=== PATIENT | female | born 1955 | race Two or more races ===

== ENCOUNTER 2020-03-08 11:32 | Outpatient (REF) | payer OTHER, SELFPAY ==
--- NOTE | 2020-03-08 | MM_ITS ---
EXAMINATION: MM SCREENING DIGITAL BREAST TOMOSYNTHESIS, BILATERAL CLINICAL INFORMATION: Screening. Asymptomatic. The lifetime risk of breast cancer based on the Tyrer-Cuzick Model is 9%. COMPARISON: Mammography: 08/01/2018, 07/30/2017 TECHNIQUE: Digital breast tomosynthesis is performed in both the craniocaudal and mediolateral oblique views along with computer-aided detection (CAD). Synthesized 2D images are generated from the tomosynthesis. FINDINGS: There are scattered areas of fibroglandular density (ACR BI-RADS breast composition Category b). There are no significant masses, abnormal calcifications, or other abnormalities. There are stable small circumscribed nodules likely intramammary nodes outer left breast, and central and outer right breast. MM/MM tomosynthesis screening BI IMPRESSION: No mammographic evidence of malignancy. ASSESSMENT: BI-RADS 2: Benign RECOMMENDATION: Routine annual mammography screening. This patient's information was entered into a reminder system with a target due date for their next mammogram.
== END 2020-03-08 11:33 | disposition home or self-care (01) ==
LOC: HO.MAMMO 11:32
PROVIDERS: Visit Provider Internal Medicine
DX: Z12.31 Encounter for screening mammogram for malignant neoplasm of breast (principal)
CPT/HCPCS: 77063; 77067

== ENCOUNTER 2020-03-16 10:31 | Outpatient (REF) | payer OTHER, SELFPAY ==
[2020-03-16 11:55] LABS: MANUAL DIFF FLAG NO
[2020-03-16 12:01] LABS: Basophils Percent Auto 0.3 % (0-2); Eosinophils Absolute Auto 0.1 X10*3/uL (0.0-0.4); Eosinophils Percent Auto 1.3 % (0-4); Hematocrit 42.6 % (37-47); Hemoglobin 13.5 g/dl (12.0-16.0); Imm Gran Abs Auto 0.01 X10*3/uL (0.00-0.03); Imm Gran Pct Auto 0.2 % (0.0-0.4); Lymphocytes Absolute Auto 1.8 X10*3/uL (1.2-4.9); Lymphocytes Percent Auto 30.5 % (20-40); Mean Corpuscular HGB Conc 31.7 g/dl (31.0-35.0); Mean Corpuscular Hemoglobin 27.8 pg (27.0-33.0); Mean Corpuscular Volume 87.8 fL (80-98); Mean Platelet Volume 8.6 fL (9.4-12.3); Monocytes Absolute Auto 0.4 X10*3/uL (0.1-1.2); Monocytes Percent Auto 6.7 % (2-11); Neutrophils Absolute Auto 3.6 X10*3/uL (2.0-8.3); Platelet Count 190 X10*3/uL (160-400); Red Blood Count 4.85 X10*6/uL (4.20-5.50); Red Cell Distribution Width 12.6 % (11.0-16.0); White Blood Count 5.9 X10*3/uL (4.8-10.8)
[2020-03-16 12:37] LABS: Alanine Aminotransferase 41 U/L (0-31); Albumin Level 4.6 g/dL (3.5-5.0); Alkaline Phosphatase 68 U/L (39-117); Anion Gap 12 (12-20); Aspartate Amino Transferase 34 U/L (5-31); Bilirubin Total 0.6 mg/dL (0.0-1.0); Blood Urea Nitrogen 13 mg/dL (9-16); Calcium 9.5 mg/dL (8.4-10.2); Carbon Dioxide 31 mmol/L (22-29); Chloride 104 mmol/L (96-108); Cholesterol 232 mg/dL; Estimated Glomerular Filt Rate > 60; Glucose Fasting 106 mg/dL (60-99); HDL Cholesterol 55 mg/dL; LDL Cholesterol Calculated 143 mg/dl; Potassium 4.5 mmol/l (3.3-5.1); Sodium 142 mmol/L (135-145); Total Protein 7.6 g/dL (6.5-8.0); Triglycerides 170 mg/dL
[2020-03-16 12:45] LABS: TSH reflex Free T4 1.71 mIU/mL (0.32-4.0); Vitamin D 25-OH Total 50.9 ng/mL (>30)
[2020-03-16 13:03] LABS: Folate > 20.0 ng/mL (> or = 4.0); Vitamin B12 728 pg/mL (200-900)
== END 2020-03-16 10:32 | disposition home or self-care (01) ==
LOC: HO.LAB 10:31
PROVIDERS: Visit Provider Internal Medicine
DX: R73.01 Impaired fasting glucose (principal); E66.9 Obesity, unspecified; I10 Essential (primary) hypertension; F41.9 Anxiety disorder, unspecified; Z12.31 Encounter for screening mammogram for malignant neoplasm of breast
CPT/HCPCS: 36415; 80053; 80061; 82306; 82607; 82746; 84443; 85025

== ENCOUNTER 2021-03-11 13:45 | Outpatient (REF) | payer OTHER, SELFPAY ==
--- NOTE | ~2021-03-11 | MM_ITS ---
EXAMINATION: MM SCREENING DIGITAL BREAST TOMOSYNTHESIS, BILATERAL CLINICAL INFORMATION: Screening. Asymptomatic. The lifetime risk of breast cancer based on the Tyrer-Cuzick Model is 10%. COMPARISON: Mammography: 03/08/2020, 08/01/2018, 07/30/2017 TECHNIQUE: Digital breast tomosynthesis is performed in both the craniocaudal and mediolateral oblique views along with computer-aided detection (CAD). Synthesized 2D images are generated from the tomosynthesis. Additional left MLO view is provided. FINDINGS: There are scattered areas of fibroglandular density (ACR BI-RADS breast composition Category b). There are no significant masses, abnormal calcifications, or other abnormalities. Parenchymal pattern is similar to prior studies. There is some stable circumscribed nodularity again seen posterior 3:00 left breast and posterior 6:00 and mid upper outer right breast, respectively. No developing density. No significant changes. MM/MM tomosynthesis screening BI IMPRESSION: No mammographic evidence of malignancy. ASSESSMENT: BI-RADS 2: Benign RECOMMENDATION: Routine annual mammography screening. This patient's information was entered into a reminder system with a target due date for their next mammogram.
== END 2021-03-11 13:46 | disposition home or self-care (01) ==
LOC: HO.MAMMO 13:45
PROVIDERS: PCP Internal Medicine; Visit Provider Internal Medicine
DX: Z12.31 Encounter for screening mammogram for malignant neoplasm of breast (principal)
CPT/HCPCS: 77063; 77067

== ENCOUNTER 2021-04-17 12:58 | Emergency (ER) | payer OTHER, SELFPAY ==
[2021-04-17 15:10] LABS: COVID-19 Test Positive (Negative)
== END 2021-04-17 23:13 | disposition left against medical advice (07) ==
PROVIDERS: Physician Assistant; Emergency Provider Emergency Medicine; PCP Internal Medicine
DX: U07.1 COVID-19 (principal); R51.9 Headache, unspecified
CPT/HCPCS: 36415; 87635; 99283

== ENCOUNTER 2021-04-27 09:34 | Inpatient (IN) | payer OTHER, SELFPAY ==
[2021-04-27] VITALS (12 sets, daily range): BP systolic 134–188; BP diastolic 0–88; PULSE 62–77; RESP 12–20; TEMP 35.6–37.1; O2SAT 97–100; BMI 31.8
--- NOTE | ~2021-04-27 | XR_ITS ---
EXAMINATION: XR ANKLE, LEFT CLINICAL INFORMATION: Postreduction left ankle. COMPARISON: None TECHNIQUE: AP, lateral, and mortise views of the left ankle. FINDINGS: Postreduction the left ankle is in a cast. There is a medial malleolar, posterior malleolar and posterior fibular fractures which are in alignment. There is moderate soft tissue swelling. The left ankle is in a hard cast posteriorly. XR/XR ankle LT min 3V IMPRESSION: Status post reduction the left ankle mortise is in alignment. Visualized are posterior and medial malleolar fractures and posterior fibular fractures in alignment.
--- NOTE | ~2021-04-27 | FL_ITS ---
EXAMINATION: XR FLUOROSCOPY WITH IMAGES CLINICAL INFORMATION: Left ankle ORIF. COMPARISON: Left ankle radiographs dated 04/27/2021. TECHNIQUE: Fluoroscopy performed by Dr. Burgos. Fluoroscopy time: 5 minutes DAP: 0.0203 mGycm2 Images: 5 FL/FL guidance in OR FINDINGS/IMPRESSION: The patient is status post distal fibular and medial malleolus ORIF showing good anatomic alignment with mild soft tissue swelling is seen. Please refer to the operative report for more detailed findings.
--- NOTE | ~2021-04-27 | XR_ITS ---
EXAMINATION: BILATERAL KNEE AND LEFT ANKLE. CLINICAL INFORMATION: Fall. Pain. COMPARISON: None TECHNIQUE: 3 views each knee and 3 views left ankle. FINDINGS: RIGHT KNEE: There is no visible acute fracture, dislocation or subluxation. The joint space is maintained normal. There is small anterior superior patellar enthesophyte. No abnormal joint effusion seen. LEFT KNEE: There is loss of tricompartment joint space with periarticular spurring. No abnormal joint effusion or bony erosive changes. No loose body seen. There is no acute fracture or dislocation. LEFT ANKLE: There is a posterior malleolar fracture distal tibia and posterior fibular fracture with anterior dislocation of the ankle joint mortise. There is moderate soft tissue swelling. Small calcaneal heel and a moderate size retrocalcaneal enthesophytes are seen. XR/XR knee LT 4V IMPRESSION: Fracture dislocation ankle joint. There is moderate soft tissue swelling. Unremarkable bilateral knee exam except for anterior superior patella and enthesophyte right patella and calcaneal heel and retrocalcaneal enthesophytes.
--- NOTE | ~2021-04-27 | XR_ITS ---
EXAMINATION: BILATERAL KNEE AND LEFT ANKLE. CLINICAL INFORMATION: Fall. Pain. COMPARISON: None TECHNIQUE: 3 views each knee and 3 views left ankle. FINDINGS: RIGHT KNEE: There is no visible acute fracture, dislocation or subluxation. The joint space is maintained normal. There is small anterior superior patellar enthesophyte. No abnormal joint effusion seen. LEFT KNEE: There is loss of tricompartment joint space with periarticular spurring. No abnormal joint effusion or bony erosive changes. No loose body seen. There is no acute fracture or dislocation. LEFT ANKLE: There is a posterior malleolar fracture distal tibia and posterior fibular fracture with anterior dislocation of the ankle joint mortise. There is moderate soft tissue swelling. Small calcaneal heel and a moderate size retrocalcaneal enthesophytes are seen. XR/XR ankle LT min 3V IMPRESSION: Fracture dislocation ankle joint. There is moderate soft tissue swelling. Unremarkable bilateral knee exam except for anterior superior patella and enthesophyte right patella and calcaneal heel and retrocalcaneal enthesophytes.
--- NOTE | ~2021-04-27 | XR_ITS ---
EXAMINATION: BILATERAL KNEE AND LEFT ANKLE. CLINICAL INFORMATION: Fall. Pain. COMPARISON: None TECHNIQUE: 3 views each knee and 3 views left ankle. FINDINGS: RIGHT KNEE: There is no visible acute fracture, dislocation or subluxation. The joint space is maintained normal. There is small anterior superior patellar enthesophyte. No abnormal joint effusion seen. LEFT KNEE: There is loss of tricompartment joint space with periarticular spurring. No abnormal joint effusion or bony erosive changes. No loose body seen. There is no acute fracture or dislocation. LEFT ANKLE: There is a posterior malleolar fracture distal tibia and posterior fibular fracture with anterior dislocation of the ankle joint mortise. There is moderate soft tissue swelling. Small calcaneal heel and a moderate size retrocalcaneal enthesophytes are seen. XR/XR knee RT 4V IMPRESSION: Fracture dislocation ankle joint. There is moderate soft tissue swelling. Unremarkable bilateral knee exam except for anterior superior patella and enthesophyte right patella and calcaneal heel and retrocalcaneal enthesophytes.
[2021-04-27] MEDS: fentaNYL citrate/PF 100 MCG/2 ML VIAL 50 MCG IVPUSH (12:17)
[2021-04-27] MEDS: ondansetron HCL 4 MG/2 ML VIAL IVPUSH ×3 (12:17→20:45)
[2021-04-27] MEDS: propofoL 200 MG/20 ML VIAL 100 MG IVPUSH (12:20)
--- NOTE | 2021-04-27 12:29 | ED.FALL ---
HPI - Fall General Chief Complaint: Fall Stated Complaint: FALL ON ICE,KNEE PAIN,+CCOLLAR Time Seen by Provider: 04/27/21 11:02 Source: patient Limitations: no limitations History of Present Illness HPI Narrative: This is a 65 years old the patient will fell on the ice complaining of left ankle pain denies any other pain denies any head injury neck pain abdominal pain no chest wall pain complaint: fall Onset (ago): hour(s) (1) Fall from: standing Fall witnessed: no Place fall occurred: other (outside house) Loss of consciousness: none Prolonged down time: no Symptoms prior to fall: none Context: tripped/slipped Related Data Home Medications Medication Instructions Recorded Confirmed acetaminophen 325 mg tablet 650 mg PO Q4H PRN 04/27/21 04/27/21 cholecalciferol (vitamin D3) 25 25 mcg PO DAILY 04/27/21 04/27/21 mcg (1,000 unit) tablet (Vitamin D3) Previous Rx's Medication Instructions Recorded cyclobenzaprine 10 mg tablet 10 mg PO TID PRN #20 tab 11/30/20 metoprolol succinate 100 mg 100 mg PO DAILY #90 tab 02/14/21 tablet,extended release 24 hr meclizine 25 mg tablet 25 mg PO TID PRN #30 tab 03/11/21 rosuvastatin 20 mg tablet (Crestor) 20 mg PO DAILY #90 tab 03/11/21 sertraline 100 mg tablet 100 mg PO DAILY #90 tab 04/07/21 Allergies Allergy/AdvReac Type Severity Reaction Status Date / Time atorvastatin [Lipitor] Allergy Unknown Unknown Verified 04/27/21 11:09 lisinopril Allergy Unknown Unknown Verified 04/27/21 11:09 simvastatin Allergy Unknown Unknown Verified 04/27/21 11:09 Review of Systems Review of Systems: Yes all other systems are reviewed and are negative Cardiovascular: Cardiovascular: Reports no additional cardiovascular complaints Respiratory: Respiratory: Reports no additional respiratory complaints Gastrointestinal: Gastrointestinal: Reports no additional gastrointestinal complaints Neurologic: Reports system reviewed and no additional complaints, except as documented PMFSH Past Medical History Medical History Anxiety and depression Carpal tunnel syndrome Hypercholesterolemia Hypertension Impaired glucose tolerance Obesity Osteopenia Postmenopausal bleeding Surgical History History of tonsillectomy History of tubal ligation Family History Family History Father No problems noted. Mother Skin cancer Breast cancer Paternal Uncle Myocardial infarction Brother No problems noted. Brother No problems noted. Sister No problems noted. Son No problems noted. Son No problems noted. Daughter No problems noted. Social History Social History (Updated 08/23/20 @ 16:30 by Tricia Perez CMA) Housing: Apartment Alcohol intake: never Advance Directives: No Advance Directives Information Provided: No service: No Current occupational status: unemployed Current occupational exposures/hazards: No Physical Exam Vital Signs: Vital Signs: Last Vital Signs Temp 98.5 F 04/27/21 12:18 Pulse 62 04/27/21 13:12 Resp 14 04/27/21 13:12 BP 188/62 H 04/27/21 13:12 Pulse Ox 100 04/27/21 13:12 Oxygen Flow Rate 2 04/27/21 12:23 BMI result Body Mass Index 31.8 Const: General: cooperative Nutritional Appearance: average body habitus Orientation/consciousness: patient oriented x3 HENMT: Head: Yes normal to inspection Face and sinus: Yes normal facial exam Mouth: Normal oral and palatal mucosa present Teeth and gingiva: dentition normal Throat: Yes posterior oropharynx normal Neck: Neck: Yes normal visual inspection and Yes full ROM Chest: Chest palpation & inspection: normal inspection of the chest Resp: Effort & Inspection: normal respiratory effort Auscultation: clear to auscultation bilaterally Cardio: Jugular venous distension: no JVD Rate: regular rate Rhythm: regular rhythm GI: Inspection: Yes normal to inspection Palpation (GI): Soft to palpation Neuro: General: patient oriented x3 Extrem: Other: Patient has a deformity and swelling in the left lower extremity in the ankle, she has good pulses Course Course Course Narrative: Discuss with Ortho Dr. Burgos will proceed with reduction Reevaluation(s) Reevaluation #1: ankle reduced and splinted Seen by PT failed PT ,will admit will need ORIF anyway Procedures Orthopedic Fracture Reduction fx dilocation left ankle: Time Out Performed: Yes Side: left Fracture Reduction Location: other (ankle) Analgesia: procedural sedation Technique: direct manipulation and traction/counter-traction Post-reduction neuro exam: intact Post-reduction vascular exam: intact Splint Applied: Yes Patient Tolerated Procedure: well Procedural Sedation Indication: fracture/dislocation reduction ASA Class: I Mallampati Class: I Preparation: satellite project site monitor applied Fentanyl: IV Fentanyl dose (mcg): 50 IV Propofol dose (mg): 50 Patient Tolerated Procedure: well Complications: none MDM - Fall Imaging Data Ankle left: Radiologist's impression: s small anterior superior patellar enthesophyte. No abnormal joint effusion seen. LEFT KNEE: There is loss of tricompartment joint space with periarticular spurring. No abnormal joint effusion or bony erosive changes. No loose body seen. There is no acute fracture or dislocation. LEFT ANKLE: There is a posterior malleolar fracture distal tibia and posterior fibular fracture with anterior dislocation of the ankle joint mortise. There is moderate soft tissue swelling. Small calcaneal heel and a moderate size retrocalcaneal enthesophytes are seen.? XR/XR ankle LT min 3V IMPRESSION: Fracture dislocation ankle joint. There is moderate soft tissue swelling. ? Unremarkable bilateral knee exam except for anterior superior patella and enthesophyte right patella and calcaneal heel and retrocalcaneal enthesophytes. Dictated By: Tito Diaz MD Signed By: <El Left Ankle postreduction: Radiologist's impression: ? ? EXAMINATION: XR ANKLE, LEFT CLINICAL INFORMATION: Postreduction left ankle.? COMPARISON: None? TECHNIQUE: AP, lateral, and mortise views of the left ankle. FINDINGS: Postreduction the left ankle is in a cast. There is a medial malleolar, posterior malleolar and posterior fibular fractures which are in alignment. There is moderate soft tissue swelling. The left ankle is in a hard cast posteriorly. XR/XR ankle LT min 3V IMPRESSION: Status post reduction the left ankle mortise is in alignment. Visualized are posterior and medial malleolar fractures and posterior fibular fractures in alignment. Dictated By: Tito Diaz MD Signed By: <Electronically signed by Tito Diaz MD in OV> 04/27/21 1326 DD/ 1251 TD/TT:? Speech And Language Tutor: [facility] [place] Discharge Plan Discharge Clinical Impression: Fracture dislocation of ankle Patient Disposition: Admitted As Inpatient
[2021-04-27] MEDS: oxyCODONE HCl Immed Release 5 MG TABLET 10 MG PO (13:33)
--- NOTE | 2021-04-27 13:52 | ECG_ITS ---
Test Reason : GEN MED Blood Pressure : / mmHG Vent. Rate : 064 BPM Atrial Rate : 064 BPM P-R Int : 136 ms QRS Dur : 076 ms QT Int : 444 ms P-R-T Axes : 060 023 020 degrees QTc Int : 458 ms Normal sinus rhythm Normal ECG When compared to the previous EKG of No significant changes seen Referred By: Waqar Huff Electronically Signed By:CHICHO JACKSON MD
--- NOTE | 2021-04-27 14:12 | PM.EVENT ---
Event Note Date of Service: 04/27/21 Event Note: 65 yo fracture dislocation left ankle admitted to orthopedics service for plan to take to OR 04/28/20 NPO after midnight hospitalist consulted for clearance
[2021-04-27] MEDS: Dextrose 5 % and 0.45 % NaCl 1,000 ML 80 ML IVCONT (14:38)
[2021-04-27] MEDS: Metoprolol Succinate ER 100 MG TAB.ER.24H PO (14:38)
[2021-04-27] MEDS: Sertraline HCL 100 MG TABLET PO (14:38)
[2021-04-27 14:39] LABS: Influenza A PCR NEGATIVE (Negative); Influenza B PCR NEGATIVE (Negative); Resp Syncy Virus RNA Qual PCR NEGATIVE (Negative); SARS COV2 PCR INHOUSE POSITIVE (Negative)
[2021-04-27 14:51] LABS: MANUAL DIFF FLAG NO
[2021-04-27 14:52] LABS: Basophils Percent Auto 0.1 % (0-2); Eosinophils Percent Auto 0.2 % (0-4); Hemoglobin 12.9 g/dl (12.0-16.0); Imm Gran Abs Auto 0.04 X10*3/uL (0.00-0.03); Imm Gran Pct Auto 0.5 % (0.0-0.4); Lymphocytes Absolute Auto 1.3 X10*3/uL (1.2-4.9); Lymphocytes Percent Auto 16.3 % (20-40); Mean Corpuscular HGB Conc 32.3 g/dl (31.0-35.0); Mean Corpuscular Hemoglobin 27.4 pg (27.0-33.0); Mean Corpuscular Volume 84.9 fL (80.0-98.0); Mean Platelet Volume 8.3 fL (9.4-12.3); Monocytes Absolute Auto 0.4 X10*3/uL (0.1-1.2); Monocytes Percent Auto 4.7 % (2-11); Neutrophils Absolute Auto 6.3 x10*3/uL (2.0-8.3); Neutrophils Percent Auto 78.2 % (45-73); Platelet Count 171 X10*3/uL (160-400); Red Blood Count 4.71 X10*6/uL (4.20-5.50); Red Cell Distribution Width 12.3 % (11.0-16.0); White Blood Count 8.1 X10*3/uL (4.8-10.8)
[2021-04-27] MEDS: 0.9 % Sodium Chloride Flush 3 ML SYRINGE IVFLUSH (15:03)
[2021-04-27 15:09] LABS: Alanine Aminotransferase 32 U/L (0-31); Albumin Level 4.4 g/dL (3.5-5.0); Alkaline Phosphatase 72 U/L (39-117); Anion Gap 11 (12-20); Aspartate Amino Transferase 27 U/L (5-31); Bilirubin Total 0.4 mg/dL (0.0-1.0); Blood Urea Nitrogen 16 mg/dL (9-16); Calcium 9.5 mg/dL (8.4-10.2); Carbon Dioxide 26 mmol/L (22-29); Chloride 108 mmol/L (96-108); Creatinine Clr Calc Pharmacy 73.7; Estimated Glomerular Filt Rate > 60; Glucose Random 112 mg/dL (60-115); Potassium 4.3 mmol/L (3.3-5.1); Sodium 141 mmol/L (135-145); Total Protein 7.4 g/dL (6.5-8.0)
--- NOTE | 2021-04-27 15:21 | MHC.CM.ED ---
Received case management consult from Dr Arora. Patient came to ER due to ankle pain after fall. Found to have dislocated ankle that was reduced. Physical therapy eval completed. Short term rehab is recommended. Referral broadcasted in [employer] to all facilities within 20 miles of patient's home due to lack of bed availability. Patient received 2 Moderna vaccines. Received notification patient will be admitted. Continue to monitor for d/c needs.
--- NOTE | 2021-04-27 16:28 | MHC.CM.PN ---
Attempted to meet with patient to complete CM interview. Pt very sleepy and difficulty staying awake. Pt then began vomiting. Pt positive covid. Will complete interview when pt feeling better. Dione ROBERTS aware of pt being dizzy and vomiting. No IMM necessary. [employer] Techn[employer] HCP on file. Fully vaccinated with Moderna on 08/04 and 09/01. No booster. Pt will be NPO after midnight for ORIF Left ankle. Pt will need STR. Referrals placed by previous CM. Pt unaware, as she is too ill to participate in CM interview at this time. CM to follow for d/c needs.
[2021-04-27] MEDS: Metoclopramide HCl 10 MG/2 ML VIAL IVPUSH (16:30)
--- NOTE | 2021-04-27 16:34 | HO.PM.IMCN ---
History of Present Illness Data of Consult Service Date: 04/27/21 Requesting physician: Nolberto Burgos Primary Care Provider: Kenzie Stoddard MD [facility] Reason for consult: Preop clearance for left ankle fracture 65-year-old female patient with past medical history significant for hypertension, hyperlipidemia, anxiety depression presented to [facility] after she slipped on ice and developed left ankle pain, she denies preceding symptoms of lightheadedness dizziness no chest pain no palpitation, x-ray left ankle showed fracture dislocation ankle joint with moderate soft tissue swelling, bilateral knee x-ray showed no fractures, left showed unremarkable CBC, with stable electrolytes and blood sugar, at present patient complaining of nausea vomiting and dizziness COVID-19 test positive Review of Systems Review of Systems: General dizziness, no fever, no chills. CVS no chest pain, no palpitation. Respiratory no cough no sputum production no respiratory distress. Gastrointestinal nausea ,vomiting, no abdominal pain no urinary frequency no urgency Musculoskeletal left ankle pain skin no rash, no itching Yes all other systems are reviewed and are negative [facility] [place] Medical History Anxiety and depression Carpal tunnel syndrome Hypercholesterolemia Hypertension Impaired glucose tolerance Obesity Osteopenia Postmenopausal bleeding Functional capacity: independent ambulation Family History Father No problems noted. Mother Skin cancer Breast cancer Paternal Uncle Myocardial infarction Brother No problems noted. Brother No problems noted. Sister No problems noted. Son No problems noted. Son No problems noted. Daughter No problems noted. Pertinent family history: No change in family history other than above Surgical History History of tonsillectomy History of tubal ligation Social History Housing: Apartment Alcohol intake: never Patient Tobacco Use Status: Never used Tobacco Smoked in Last 30 Days: No Use of substances other than those prescribed or required for medical reasons: No Advance Directives: No Advance Directives Information Provided: No service: No Current occupational status: unemployed Current occupational exposures/hazards: No Meds Allergies Allergy/AdvReac Type Severity Reaction Status Date / Time atorvastatin [Lipitor] Allergy Unknown Unknown Verified 04/27/21 11:09 lisinopril Allergy Unknown Unknown Verified 04/27/21 11:09 simvastatin Allergy Unknown Unknown Verified 04/27/21 11:09 Active Medications: Current Medications Acetaminophen (Acetaminophen 325 Mg Tablet) 325 mg PO Q4H PRN PRN Reason: Pain, Mild (Pain Scale 1-3) Cyclobenzaprine HCl (Cyclobenzaprine Hcl 10 Mg Tablet) 10 mg PO TID PRN PRN Reason: muscle spasm Hydromorphone HCl (Hydromorphone Hcl 0.5 Mg/0.5 Ml Syringe) 0.25 mg IVPUSH Q4H PRN; Protocol PRN Reason: Pain, Severe (Pain Scale 7-10) Dextrose/Sodium Chloride (D51/2ns) 1,000 mls @ 80 mls/hr IVCONT .[id number] [facility] Last Admin: 04/27/21 14:38 Dose: 80 mls/hr Documented by: Cefazolin Sodium/Dextrose (Ancef) 2 gm in 50 mls @ 100 mls/hr IV PREOP ONE Stop: 04/28/21 14:33 Meclizine HCl (Meclizine Hcl 25 Mg Tablet) 25 mg PO TID PRN PRN Reason: dizziness Metoprolol Succinate (Metoprolol Succinate Er 100 Mg Tab.Er.24h) 100 mg PO DAILY [facility]; Protocol Last Admin: 04/27/21 14:38 Dose: 100 mg Documented by: Non-Formulary Medication (Rosuvastatin [Crestor]) 20 mg PO DAILY [facility] Ondansetron HCl (Ondansetron Hcl 4 Mg/2 Ml Vial) 4 mg IVPUSH Q4H PRN PRN Reason: Nausea Last Admin: 04/27/21 15:02 Dose: 4 mg Documented by: Oxycodone HCl (Oxycodone Hcl Immed Release 5 Mg Tablet) 10 mg PO Q4H PRN PRN Reason: Pain, Moderate (Pain Scale 4-6 Oxycodone HCl (Oxycodone Hcl Er 10 Mg Tab.Er.12h) 10 mg PO BID [facility] Pharmacy Consult (Consult Rx Perform Med Rec) 1 each MISCELLANE ONCE PRN PRN Reason: Consult order Sertraline HCl (Sertraline Hcl 100 Mg Tablet) 100 mg PO DAILY [facility] Last Admin: 04/27/21 14:38 Dose: 100 mg Documented by: Sodium Chloride (0.9 % Sodium Chloride Flush 3 Ml Syringe) 3 ml IVFLUSH QSHIFT JODY Last Admin: 04/27/21 15:03 Dose: 3 ml Documented by: Home Medications Medication Instructions Recorded Confirmed Last Taken Type acetaminophen 325 mg tablet 650 mg PO Q4H PRN 04/27/21 04/27/21 Unknown History cholecalciferol (vitamin D3) 25 25 mcg PO DAILY 04/27/21 04/27/21 04/26/20 History mcg (1,000 unit) tablet (Vitamin D3) Physical Exam Vital Signs and Narrative: Vital Signs: Last Vital Signs Temp 98.7 F 04/27/21 14:36 Pulse 62 04/27/21 14:36 Resp 16 04/27/21 14:36 BP 148/63 H 04/27/21 14:36 Pulse Ox 100 04/27/21 14:36 Oxygen Flow Rate 2 04/27/21 12:23 BMI result Body Mass Index 31.8 General awake alert,in mild distress due to nausea vomiting and pain HEENT pupils equal round reactive to light and accommodation Neck supple no JVD. CVS regular rate rhythm, Respiratory lungs clear to auscultation, no respiratory distress, no wheeze, no rhonchi. Gastrointestinal abdomen soft, nontender, bowel sounds audible. Extremities left ankle in cast, right leg with no swelling Neuro nonfocal Skin no rash Psych appropriate affect Results Labs CBC and Chem 7: 04/27/21 14:47 04/27/21 14:47 Labs: Laboratory Results - last 24 hr 04/27/21 04/27/21 04/27/21 13:51 14:47 14:47 MCV 84.9 MCH 27.4 MCHC 32.3 RDW 12.3 Plt Count 171 MPV 8.3 L Immature Gran % (Auto) 0.5 H Neut % (Auto) 78.2 H Lymph % (Auto) 16.3 L [place] % (Auto) 4.7 Eos % (Auto) 0.2 Baso % (Auto) 0.1 Lymph # (Auto) 1.3 [place] # (Auto) 0.4 Eos # (Auto) 0.0 Baso # (Auto) 0.0 Abs Immat Gran (auto) 0.04 H Absolute Neuts (auto) 6.3 Absolute Nucleated RBC 0.000 Nucleated RBC % (auto) 0.0 Anion Gap 11 L Estim Creat Clear Calc 73.7 Estimated GFR > 60 Random Glucose 112 Calcium 9.5 Total Bilirubin 0.4 AST 27 ALT 32 H Alkaline Phosphatase 72 Total Protein 7.4 Albumin 4.4 Influenza Type A (PCR) NEGATIVE Influenza Type B (PCR) NEGATIVE RSV RNA Qual (PCR) NEGATIVE SARS-CoV-2 RNA (RT-PCR) POSITIVE A Imaging Radiologist's Impressions: Impressions Ankle X-Ray 04/27/21 11:00 IMPRESSION: Fracture dislocation ankle joint. There is moderate soft tissue swelling. Unremarkable bilateral knee exam except for anterior superior patella and enthesophyte right patella and calcaneal heel and retrocalcaneal enthesophytes. Knee X-Ray 04/27/21 11:00 IMPRESSION: Fracture dislocation ankle joint. There is moderate soft tissue swelling. Unremarkable bilateral knee exam except for anterior superior patella and enthesophyte right patella and calcaneal heel and retrocalcaneal enthesophytes. Knee X-Ray 04/27/21 11:00 IMPRESSION: Fracture dislocation ankle joint. There is moderate soft tissue swelling. Unremarkable bilateral knee exam except for anterior superior patella and enthesophyte right patella and calcaneal heel and retrocalcaneal enthesophytes. Ankle X-Ray 04/27/21 12:51 IMPRESSION: Status post reduction the left ankle mortise is in alignment. Visualized are posterior and medial malleolar fractures and posterior fibular fractures in alignment. Assessment and Plan (1) Fracture dislocation of ankle: Status: Acute (2) COVID-19: Status: Acute (3) Anxiety and depression: Status: Acute (4) Hypertension: Qualifiers: Hypertension type: essential hypertension Qualified Code(s): I10 - Essential (primary) hypertension Status: Acute (5) Hypercholesterolemia: Status: Acute (6) Obesity: Qualifiers: Obesity type: due to excess calories Obesity classification: adult class 2 (BMI 35 - 39.9) Serious obesity comorbidity presence: with serious comorbidity Body mass index: BMI 39.0-39.9 Qualified Code(s): E66.01 - Morbid (severe) obesity due to excess calories; Z68.39 - Body mass index [BMI] 39.0-39.9, adult Status: Acute 65-year-old female patient admitted under Orthopedic surgery due to mechanical fall and left ankle fracture. Mechanical fall with left ankle fracture scheduled for surgery on April 28, given need for emergency surgery patient does not need any further cardiopulmonary testing, proceed with planned procedure. Pain management anticoagulation as per Ortho Continue Zofran and meclizine for nausea and dizziness. Hypertension Elevated blood pressure due to pain and anxiety continue metoprolol follow blood pressure Hyperlipidemia Continue Crestor, Anxiety/ depression Continue home medication COVID-19 infection, no hypoxia finger oximetry 100% on room air, initially diagnosed to have COVID on 04/17/2021. Code status full code
--- NOTE | 2021-04-27 19:45 | PC.NURSE ---
Assumed care of pt
--- NOTE | 2021-04-27 20:00 | PC.NURSE ---
Pt c/o nausea and dizziness Pt medicated per JUN Pt tolerated well
[2021-04-27] MEDS: Meclizine HCl 25 MG TABLET PO (20:58)
[2021-04-27] MEDS: oxyCODONE HCl ER 10 MG TAB.ER.12H PO (20:58)
--- NOTE | 2021-04-27 23:45 | PC.NURSE ---
Pt assisted x 2 to bedside commode Pt advised not to bear weight on LT foot Pt tolerated well Pt back on stretcher No apparent distress Will continue to monitor
[2021-04-28] VITALS (14 sets, daily range): BP systolic 116–174; BP diastolic 64–93; PULSE 78–88; RESP 12–18; TEMP 36.1–36.6; O2SAT 93–98
[2021-04-28] MEDS: HYDROmorphone HCl 0.5 MG/0.5 ML SYRINGE 0.25 MG IVPUSH ×4 (00:23→13:58)
[2021-04-28] MEDS: ondansetron HCL 4 MG/2 ML VIAL IVPUSH (05:52)
[2021-04-28] MEDS: oxyCODONE HCl Immed Release 5 MG TABLET 10 MG PO (06:20)
[2021-04-28] MEDS: Dextrose 5 % and 0.45 % NaCl 1,000 ML 80 ML IVCONT (06:21)
--- NOTE | 2021-04-28 06:27 | PC.NURSE ---
Pt c/o pain to RLE Pt medicated per JUN Pt tolerated well Pt's RLE repositioned on pillow Will continue to monitor
[2021-04-28 07:38] LABS: Anion Gap 11 (12-20); Blood Urea Nitrogen 14 mg/dL (9-16); Calcium 9.3 mg/dL (8.4-10.2); Carbon Dioxide 28 mmol/L (22-29); Chloride 105 mmol/L (96-108); Estimated Glomerular Filt Rate > 60; Glucose Random 119 mg/dL (60-115); Potassium 4.4 mmol/L (3.3-5.1); Sodium 140 mmol/L (135-145)
[2021-04-28] MEDS: Sertraline HCL 100 MG TABLET PO (08:56)
[2021-04-28] MEDS: Metoprolol Succinate ER 100 MG TAB.ER.24H PO (08:56)
--- NOTE | 2021-04-28 09:04 | PC.NURSE ---
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 Ankle dislocation fixed in main ED with conscious sedation and then casted. Pt pending surgery sometime today. Pt remains NPO since midnight, with some sips of water fro morning meds. PA Meuse aware. Heart sounds normal and lungs diminished. Pt abd round and non-tender. No canchola.
--- NOTE | 2021-04-28 09:33 | PC.NURSE ---
Report given to [facility] ARMANDO Arthur. Pending surgery arouns 1500 today.
[2021-04-28] MEDS: oxyCODONE HCl ER 10 MG TAB.ER.12H PO ×2 (10:33→21:29)
[2021-04-28] MEDS: ceFAZolin Sodium/Dextrose,Iso 2 GM/50 ML PIGGYBACK IV ×2 (13:58→22:59)
--- NOTE | 2021-04-28 15:03 | HO.PM.IMPN ---
Subjective Subjective Date of Service: 04/28/21 Interval History: Complaining of left ankle pain, denies chest pain no shortness of breath no fever chills, NPO for surgery this afternoon. Review of Systems Review of Systems: Yes all other systems are reviewed and are negative Physical Exam Vital Signs: Vital Signs: Last Vital Signs Temp 97.0 F 04/28/21 08:56 Pulse 83 04/28/21 10:18 Resp 18 04/28/21 08:56 BP 139/65 04/28/21 10:18 Pulse Ox 95 04/28/21 08:56 Oxygen Flow Rate 2 04/27/21 12:23 BMI result Body Mass Index 31.8 General awake alert,in mild distress due to pain Neck? supple no JVD. CVS? regular rate rhythm, Respiratory lungs clear to auscultation, no respiratory distress, no wheeze, no rhonchi. Gastrointestinal abdomen soft, nontender, bowel sounds audible. Extremities left ankle in cast, right leg with no swelling Neuro nonfocal Skin no rash Psych appropriate affect Objective Data Active Medications Acetaminophen (Acetaminophen 325 Mg Tablet) 325 mg PO Q4H PRN PRN Reason: Pain, Mild (Pain Scale 1-3) Cyclobenzaprine HCl (Cyclobenzaprine Hcl 10 Mg Tablet) 10 mg PO TID PRN PRN Reason: muscle spasm Hydromorphone HCl (Hydromorphone Hcl 0.5 Mg/0.5 Ml Syringe) 0.25 mg IVPUSH Q4H PRN; Protocol PRN Reason: Pain, Severe (Pain Scale 7-10) Last Admin: 04/28/21 13:58 Dose: 0.25 mg Documented by: MARK Dextrose/Sodium Chloride (D51/2ns) 1,000 mls @ 80 mls/hr IVCONT .[id number] [facility] Last Admin: 04/28/21 06:21 Dose: 80 mls/hr Documented by: YSABEL Meclizine HCl (Meclizine Hcl 25 Mg Tablet) 25 mg PO TID PRN PRN Reason: dizziness Last Admin: 04/27/21 20:58 Dose: 25 mg Documented by: YSABEL Metoprolol Succinate (Metoprolol Succinate Er 100 Mg Tab.Er.24h) 100 mg PO DAILY [facility]; Protocol Last Admin: 04/28/21 08:56 Dose: 100 mg Documented by: MARK Non-Formulary Medication (Rosuvastatin [Crestor]) 20 mg PO DAILY [facility] Ondansetron HCl (Ondansetron Hcl 4 Mg/2 Ml Vial) 4 mg IVPUSH Q4H PRN PRN Reason: Nausea Last Admin: 04/28/21 05:52 Dose: 4 mg Documented by: YSABEL Oxycodone HCl (Oxycodone Hcl Immed Release 5 Mg Tablet) 10 mg PO Q4H PRN PRN Reason: Pain, Moderate (Pain Scale 4-6 Last Admin: 04/28/21 06:20 Dose: 10 mg Documented by: YSABEL Oxycodone HCl (Oxycodone Hcl Er 10 Mg Tab.Er.12h) 10 mg PO BID [facility] Last Admin: 04/28/21 10:33 Dose: 10 mg Documented by: MARK Pharmacy Consult (Consult Rx Perform Med Rec) 1 each MISCELLANE ONCE PRN PRN Reason: Consult order Sertraline HCl (Sertraline Hcl 100 Mg Tablet) 100 mg PO DAILY [facility] Last Admin: 04/28/21 08:56 Dose: 100 mg Documented by: MARK Sodium Chloride (0.9 % Sodium Chloride Flush 3 Ml Syringe) 3 ml IVFLUSH QSHIFT [facility] Last Admin: 04/28/21 08:36 Dose: Not Given Documented by: MARK Non-Admin Reason: Med Not Available Labs CBC & Chem 7: 04/27/21 14:47 04/28/21 06:52 Labs: Laboratory Results - last 24 hr 04/27/21 04/28/21 14:47 06:52 Anion Gap 11 L 11 L Estim Creat Clear Calc 73.7 71.0 Estimated GFR > 60 > 60 Random Glucose 112 119 H Calcium 9.5 9.3 Total Bilirubin 0.4 AST 27 ALT 32 H Alkaline Phosphatase 72 Total Protein 7.4 Albumin 4.4 Assessment and Plan (1) Fracture dislocation of ankle: Status: Acute (2) COVID-19: Status: Acute (3) Hypertension: Status: Acute (4) Anxiety and depression: Status: Acute (5) Hypercholesterolemia: Status: Acute Assessment and Plan: 65-year-old female patient admitted under Orthopedic surgery due to mechanical fall and left ankle fracture. Mechanical fall with left ankle fracture scheduled for surgery today Pain management anticoagulation as per Ortho Continue Zofran and meclizine for nausea and dizziness. Follow CBC post surgery/PT Encourage is incentive spirometry/will add stool softeners due to high-dose narcotic Hypertension blood pressure improved, continue metoprolol and follow blood pressure closely Hyperlipidemia Continue Crestor, Anxiety/ depression Continue home medication COVID-19 infection, no hypoxia finger oximetry 100% on room air, initially diagnosed to have COVID on 04/17/2021, does not qualify for Decadron or remdesivir. Code status full code Quality Stroke Does the patient have a stroke diagnosis?: No VTE Prior VTE?: No VTE Risk Level:: Medical - moderate - high VTE Device Contraindication: Treatment Not Indicated VTE Drug Contraindication: N/A - Med Ordered
--- NOTE | 2021-04-28 15:10 | PC.NURSE ---
PACU at bedside for pt to OR at this time. Pt remains in mild pain and given PRN medications prior.
--- NOTE | 2021-04-28 15:24 | P.CONAN_ITS ---
HPI - Anesthesia Eval Consult details Narrative: 65 F for ORIF ankle left h/o dizziness , as per patient was on meclazine at home [facility] Active Problems Active Problems: All Active Problems (Updated 04/27/21 @ 15:42 by Dustin Arora MD) Fracture dislocation of ankle (Acute) COVID-19 (Acute) Low back pain (Acute) Annual physical exam (Acute) Fungal dermatitis (Acute) Impaired glucose tolerance (Acute) Anxiety and depression (Acute) Hypertension (Acute) Hypercholesterolemia (Acute) Obesity (Acute) Past Medical History Medical History Anxiety and depression Carpal tunnel syndrome Hypercholesterolemia Hypertension Impaired glucose tolerance Obesity Osteopenia Postmenopausal bleeding Functional capacity: independent ambulation Family History Family History Father No problems noted. Mother Skin cancer Breast cancer Paternal Uncle Myocardial infarction Brother No problems noted. Brother No problems noted. Sister No problems noted. Son No problems noted. Son No problems noted. Daughter No problems noted. Family history of problems with anesthesia: No Surgical History Surgical History History of tonsillectomy History of tubal ligation History of Problems with Anesthesia: Yes (Ponv ) Social History Social History Housing: Apartment Alcohol intake: never Patient Tobacco Use Status: Never used Tobacco Smoked in Last 30 Days: No Use of substances other than those prescribed or required for medical reasons: No Advance Directives: No Advance Directives Information Provided: No service: No Current occupational status: unemployed Current occupational exposures/hazards: No Meds Allergies Allergy/AdvReac Type Severity Reaction Status Date / Time atorvastatin [Lipitor] Allergy Unknown Unknown Verified 04/27/21 11:09 lisinopril Allergy Unknown Unknown Verified 04/27/21 11:09 simvastatin Allergy Unknown Unknown Verified 04/27/21 11:09 Active Medications: Current Medications Acetaminophen (Acetaminophen 325 Mg Tablet) 325 mg PO Q4H PRN PRN Reason: Pain, Mild (Pain Scale 1-3) Cyclobenzaprine HCl (Cyclobenzaprine Hcl 10 Mg Tablet) 10 mg PO TID PRN PRN Reason: muscle spasm Docusate Sodium (Docusate Sodium 100 Mg Capsule) 200 mg PO BEDTIME [facility] Hydromorphone HCl (Hydromorphone Hcl 0.5 Mg/0.5 Ml Syringe) 0.25 mg IVPUSH Q4H PRN; Protocol PRN Reason: Pain, Severe (Pain Scale 7-10) Last Admin: 04/28/21 13:58 Dose: 0.25 mg Documented by: Dextrose/Sodium Chloride (D51/2ns) 1,000 mls @ 80 mls/hr IVCONT .[id number] [facility] Last Admin: 04/28/21 06:21 Dose: 80 mls/hr Documented by: Meclizine HCl (Meclizine Hcl 25 Mg Tablet) 25 mg PO TID PRN PRN Reason: dizziness Last Admin: 04/27/21 20:58 Dose: 25 mg Documented by: Metoprolol Succinate (Metoprolol Succinate Er 100 Mg Tab.Er.24h) 100 mg PO DAILY [facility]; Protocol Last Admin: 04/28/21 08:56 Dose: 100 mg Documented by: Non-Formulary Medication (Rosuvastatin [Crestor]) 20 mg PO DAILY [facility] Ondansetron HCl (Ondansetron Hcl 4 Mg/2 Ml Vial) 4 mg IVPUSH Q4H PRN PRN Reason: Nausea Last Admin: 04/28/21 05:52 Dose: 4 mg Documented by: Oxycodone HCl (Oxycodone Hcl Immed Release 5 Mg Tablet) 10 mg PO Q4H PRN PRN Reason: Pain, Moderate (Pain Scale 4-6 Last Admin: 04/28/21 06:20 Dose: 10 mg Documented by: Oxycodone HCl (Oxycodone Hcl Er 10 Mg Tab.Er.12h) 10 mg PO BID [facility] Last Admin: 04/28/21 10:33 Dose: 10 mg Documented by: Pharmacy Consult (Consult Rx Perform Med Rec) 1 each MISCELLANE ONCE PRN PRN Reason: Consult order Polyethylene Glycol (Polyethylene Glycol 3350 17 Gm Powd.Pack) 17 gm PO DAILY [facility] Sertraline HCl (Sertraline Hcl 100 Mg Tablet) 100 mg PO DAILY [facility] Last Admin: 04/28/21 08:56 Dose: 100 mg Documented by: Sodium Chloride (0.9 % Sodium Chloride Flush 3 Ml Syringe) 3 ml IVFLUSH QSHIFT [facility] Last Admin: 04/28/21 08:36 Dose: Not Given Documented by: Home Medications Medication Instructions Recorded Confirmed Last Taken Type acetaminophen 325 mg tablet 650 mg PO Q4H PRN 04/27/21 04/27/21 Unknown History cholecalciferol (vitamin D3) 25 25 mcg PO DAILY 04/27/21 04/27/21 04/26/20 History mcg (1,000 unit) tablet (Vitamin D3) Exam Exam Date and Time: April 28, 2021 1524 Height,Weight and Vital Signs: Height 5 ft 3 in Weight 81.647 kg Last Vital Signs Temp 97.0 F 04/28/21 08:56 Pulse 83 04/28/21 10:18 Resp 18 04/28/21 08:56 BP 139/65 04/28/21 10:18 Pulse Ox 95 04/28/21 08:56 Oxygen Flow Rate 2 04/27/21 12:23 Pertinent Lab Results Pertinent Lab Results: Laboratory Tests 04/27/21 04/27/21 04/27/21 13:51 14:47 14:47 WBC 8.1 RBC 4.71 Hgb 12.9 Hct 40.0 MCV 84.9 MCH 27.4 MCHC 32.3 RDW 12.3 Plt Count 171 MPV 8.3 L Immature Gran % (Auto) 0.5 H Neut % (Auto) 78.2 H Lymph % (Auto) 16.3 L [place]eman % (Auto) 4.7 Eos % (Auto) 0.2 Baso % (Auto) 0.1 Lymph # (Auto) 1.3 [place]eman # (Auto) 0.4 Eos # (Auto) 0.0 Baso # (Auto) 0.0 Abs Immat Gran (auto) 0.04 H Absolute Neuts (auto) 6.3 Absolute Nucleated RBC 0.000 Nucleated RBC % (auto) 0.0 Sodium 141 Potassium 4.3 Chloride 108 Carbon Dioxide 26 Anion Gap 11 L BUN 16 Creatinine 0.79 Estim Creat Clear Calc 73.7 Estimated GFR > 60 Random Glucose 112 Calcium 9.5 Total Bilirubin 0.4 AST 27 ALT 32 H Alkaline Phosphatase 72 Total Protein 7.4 Albumin 4.4 Influenza Type A (PCR) NEGATIVE Influenza Type B (PCR) NEGATIVE RSV RNA Qual (PCR) NEGATIVE SARS-CoV-2 RNA (RT-PCR) POSITIVE A 04/28/21 06:52 WBC RBC Hgb Hct MCV MCH MCHC RDW Plt Count MPV Immature Gran % (Auto) Neut % (Auto) Lymph % (Auto) Hardeman % (Auto) Eos % (Auto) Baso % (Auto) Lymph # (Auto) [place]eman # (Auto) Eos # (Auto) Baso # (Auto) Abs Immat Gran (auto) Absolute Neuts (auto) Absolute Nucleated RBC Nucleated RBC % (auto) Sodium 140 Potassium 4.4 Chloride 105 Carbon Dioxide 28 Anion Gap 11 L BUN 14 Creatinine 0.82 Estim Creat Clear Calc 71.0 Estimated GFR > 60 Random Glucose 119 H Calcium 9.3 Total Bilirubin AST ALT Alkaline Phosphatase Total Protein Albumin Influenza Type A (PCR) Influenza Type B (PCR) RSV RNA Qual (PCR) SARS-CoV-2 RNA (RT-PCR) Airway Mallampati Class: III TM Dist: >3cm Neck ROM: Full Loose/Missing/Broken Teeth: Yes Heart: rrr Lungs: bl breath sounds Assessment and Plan Assessment Anesthesia Assessment: Anesthesia Plan Discussed Final Anesthetic Review Family History of Problems with Anesthesia: No History of Problems with Anesthesia: Yes (Ponv ) NPO: Yes ASA Class: III and Emergency Final Preanesthetic Review: Meds/Allgs Chart Reviewed Patient Risk: High Procedure Risk: Intermediate Anesthetic Plan Anesthetic Plan: GA Disposition: Standard PACU
--- NOTE | 2021-04-28 17:26 | MHC.SHP ---
Pre-Procedural Eval Section A Date of Service: 04/28/21 The patient is an INPATIENT: Yes Changes since office visit: Yes Patient answered all questions; No Cold of Flu in the past 2 weeks, No New Medical Problems and No Changes in Medication The History & Physical has been completed within 30 days and I have reviewed it.: Yes Section B Chief Complaint: left ankle fracture dislocation Allergies: Allergies Allergy/AdvReac Type Severity Reaction Status Date / Time atorvastatin [Lipitor] Allergy Unknown Unknown Verified 04/27/21 11:09 lisinopril Allergy Unknown Unknown Verified 04/27/21 11:09 simvastatin Allergy Unknown Unknown Verified 04/27/21 11:09 Plan I have reviewed the history and physical and performed a pertinent physical examination on my patient. No changes have occurred unless specified.
--- NOTE | 2021-04-28 17:26 | PM.OP ---
Brief Operative Note Date of Service: 04/28/21 Pre-op diagnosis: left trimal fracture dislocation Post-op diagnosis: same Procedure: 1) ORIF monica 2) ORIF syndesmosis Implants: [place] lateral locking plate and screws 4.0 cannulated screws medially Arthrex syndesmosis tightrope Surgeon: Nolberto Burgos MD Anesthesia: GETA and local Was an Life Skills Coordinator used for this Procedure?: No Estimated blood loss (mL): 75 IV fluids (mL): 1,000 Pathology: none sent Condition: stable Disposition: PACU
--- NOTE | 2021-04-28 18:52 | PC.NURSE ---
Pt received from OR. Pt still remains sleeping and in no acute distress. Pt remains on 3L N/C and satting well. Heart sounds normal, lungs clear. L ankle ORIF noted.
[2021-04-28] MEDS: Docusate Sodium 100 MG CAPSULE 200 MG PO (21:28)
[2021-04-29 02:00] VITALS: PULSE 81; RESP 17
[2021-04-29 04:00] VITALS: BP 148/63; PULSE 88; RESP 16; O2SAT 100
[2021-04-29] MEDS: oxyCODONE HCl Immed Release 5 MG TABLET 10 MG PO (04:19)
[2021-04-29 06:00] VITALS: PULSE 74; RESP 16
[2021-04-29 06:39] LABS: Anion Gap 11 (12-20); Blood Urea Nitrogen 13 mg/dL (9-16); Calcium 9.2 mg/dL (8.4-10.2); Carbon Dioxide 30 mmol/L (22-29); Chloride 104 mmol/L (96-108); Creatinine Clr Calc Pharmacy 69.4; Estimated Glomerular Filt Rate > 60; Glucose Random 117 mg/dL (60-115); Potassium 4.5 mmol/L (3.3-5.1); Sodium 140 mmol/L (135-145)
--- NOTE | 2021-04-29 08:18 | P.DS_ITS ---
DS: Providers Provider Date of Service: 04/29/21 Date of admission: 04/27/21 14:04 Primary care physician: Kenzie Stoddard MD Consults: 04/27/21 14:11 Consult to Hospitalist Routine Consulting Provider: Hospitalist Reason For Exam: pre op clearance DS: Diagnosis Discharge Diagnosis (1) Fracture dislocation of ankle: Status: Acute (2) COVID-19: Status: Acute (3) Hypertension: Status: Acute (4) Anxiety and depression: Status: Acute (5) Hypercholesterolemia: Status: Acute DS: Summary Hospital Course Hospital Course: The patient underwent a successful left ankle ORIF, they were transferred to PACU and then to the floor to recover. During their stay, their vitals were stable, afebrile at 97.8. Labs were unremarkable. POD 1 they were started on Aspirin 325mg po bid for DVT ppx. Prior to discharge, their dressing and splint was clean, dry and intact and the plan was to be discharged home with family. Time Spent with Patient Time attestation: Total time spent providing and/or coordinating discharge services: Discharge coordination time: Less than 30 minutes Quality: Stroke Does the patient have a stroke diagnosis?: No Physical Exam Vital Signs: Vital Signs: Last Vital Signs Temp 97.8 F 04/28/21 19:07 Pulse 74 04/29/21 06:00 Resp 16 04/29/21 06:00 BP 148/63 H 04/29/21 04:00 Pulse Ox 100 04/29/21 04:00 Oxygen Flow Rate 2 04/27/21 12:23 BMI result Body Mass Index 31.8 Const: General: cooperative, healthy appearing and no acute distress Resp: Effort & Inspection: normal respiratory effort and able to speak in complete sentences Cardio: Rate: regular rate Peripheral pulses: Peripheral pulses 2+ throughout GI: Palpation (GI): Soft to palpation Skin: Lesions: no lesions Rashes: no rashes Extrem: Other: Left lower extremity: Patient is able to move all digits. Sensation intact. Capillary refill is brisk. DS: Data Data Completed and Pending Labs on day of discharge: Laboratory Results - last 24 hr 04/29/21 05:54 Sodium 140 Potassium 4.5 Chloride 104 Carbon Dioxide 30 H Anion Gap 11 L BUN 13 Creatinine 0.84 Estim Creat Clear Calc 69.4 Estimated GFR > 60 Random Glucose 117 H Calcium 9.2 Discharge Plan Discharge Patient Disposition: Home Health Service Discharge Diagnosis: s/p left ankle monica fracture s/p ORIF with syndesmosis Referrals: Po,Kenzie Goode MD [Primary Care Provider] - 1 Week Discharge Medications: New oxycodone 10 mg tablet 10 mg PO Q4H PRN (Reason: Pain, Moderate (Pain Scale 4-6) 7 Days Qty: 42 RF: 0 docusate sodium 100 mg Capsule 200 mg PO BEDTIME 30 Days Qty: 60 RF: 0 aspirin 325 mg tablet 325 mg PO BID 42 Days Qty: 84 RF: 0 Continued metoprolol succinate 100 mg tablet extended release 24 hr 100 mg PO DAILY Qty: 90 RF: 2 rosuvastatin [Crestor] 20 mg tablet 20 mg PO DAILY Qty: 90 RF: 2 meclizine 25 mg tablet 25 mg PO TID PRN (Reason: dizziness) Qty: 30 RF: 0 sertraline 100 mg tablet 100 mg PO DAILY Qty: 90 RF: 2 cholecalciferol (vitamin D3) [Vitamin D3] 25 mcg (1,000 unit) Tablet 25 mcg PO DAILY RF: 0 cyclobenzaprine 10 mg tablet 10 mg PO TID PRN (Reason: muscle spasm) Qty: 20 RF: 0 Discontinued acetaminophen 325 mg Tablet 650 mg PO Q4H PRN (Reason: Pain) RF: 0 Discharge Orders: Discharge Order (Routine); Ordered 04/29/21 Ordered By: Pennie Barriga Diet: advance to usual diet Activity on Discharge: Use cane or walker Stand Alone Forms: Patient Portal Discharge page Care Plan Goals: restore fxn to left ankle Health Concerns: none Plan of Treatment: Keep splint clean, dry, and intact Elevate throughout the day No weightbearing for 6 weeks Do not bathe or shower--keep splint dry Take Percocet 10/325mg tabs 1 tab by mouth every 4-6 hours as needed Aspirin 325mg po bid for dvt ppx for 6 weeks Call [facility] orthopedics with any questions or concerns. Follow up with orthopedics in 7-10 days post op Assessment: stable for d/c
--- NOTE | 2021-04-29 08:28 | MHC.CM.PN ---
Addendum entered by Gem Whittaker 04/29/21 08:30: Iris Woo, aware of potential difficulties with discharge. Original Note: Received notification that patient is ready for discharge today. Patient is positive for Covid. Only facilities that currently are accepting positive covid patients are [facility] and [facility]. Clinical updates sent via [facility] [facility]. Continue to monitor for d/c needs.
[2021-04-29] MEDS: Sertraline HCL 100 MG TABLET PO (11:04)
[2021-04-29] MEDS: Metoprolol Succinate ER 100 MG TAB.ER.24H PO (11:04)
[2021-04-29] MEDS: 0.9 % Sodium Chloride Flush 3 ML SYRINGE IVFLUSH (11:05)
[2021-04-29] MEDS: oxyCODONE HCl ER 10 MG TAB.ER.12H PO (11:05)
[2021-04-29 11:25] VITALS: BP 142/54; PULSE 78; RESP 20; TEMP 36.3; O2SAT 95
[2021-04-29 12:15] VITALS: BP 142/54; PULSE 78; O2SAT 95
--- NOTE | 2021-04-29 12:20 | HO.PM.IMPN ---
Subjective Subjective Date of Service: 04/29/21 Interval History: Patient complaining of left ankle pain, denies nausea, vomiting, tolerating diet, no shortness of breath, no fever, chills, no other acute issues overnight. Review of Systems Review of Systems: Yes all other systems are reviewed and are negative Physical Exam Vital Signs: Vital Signs: Last Vital Signs Temp 97.4 F 04/29/21 11:25 Pulse 78 04/29/21 11:25 Resp 20 04/29/21 11:25 BP 142/54 H 04/29/21 11:25 Pulse Ox 95 04/29/21 11:25 Oxygen Flow Rate 2 04/27/21 12:23 BMI result Body Mass Index 31.8 General awake alert, no acute distress Neck? supple no JVD. CVS? regular rate rhythm, Respiratory lungs clear to auscultation, no respiratory distress, no wheeze, no rhonchi. Gastrointestinal abdomen soft, nontender, bowel sounds audible. Extremities left ankle in cast, moving toes, right leg with no swelling Neuro nonfocal Skin no rash Psych appropriate affect Objective Data Active Medications Acetaminophen (Acetaminophen 325 Mg Tablet) 325 mg PO Q4H PRN PRN Reason: Pain, Mild (Pain Scale 1-3) Albuterol Sulfate (Albuterol Sulfate (0.083%) 2.5 Mg/3 Ml Vial.Neb) 2.5 mg INHALE ONCE PRN PRN Reason: Wheezing Albuterol Sulfate (Albuterol Sulfate (0.083%) 2.5 Mg/3 Ml Vial.Neb) 2.5 mg INHALE ONCE PRN PRN Reason: Wheezing Cyclobenzaprine HCl (Cyclobenzaprine Hcl 10 Mg Tablet) 10 mg PO TID PRN PRN Reason: muscle spasm Docusate Sodium (Docusate Sodium 100 Mg Capsule) 200 mg PO BEDTIME JODY Last Admin: 04/28/21 21:28 Dose: 200 mg Documented by: DELMER Hydromorphone HCl (Hydromorphone Hcl 0.5 Mg/0.5 Ml Syringe) 0.25 mg IVPUSH Q4H PRN; Protocol PRN Reason: Pain, Severe (Pain Scale 7-10) Last Admin: 04/28/21 13:58 Dose: 0.25 mg Documented by: MARK Hydromorphone HCl (Hydromorphone Hcl 0.5 Mg/0.5 Ml Syringe) 0.5 mg IVPUSH Q5M PRN; Protocol PRN Reason: Pain, Severe (Pain Scale 7-10) Promethazine HCl 12.5 mg/ (Sodium Chloride) 50.5 mls @ 202 mls/hr IV ONCE PRN PRN Reason: Nausea and Vomiting Cefazolin Sodium/Dextrose (Ancef) 2 gm in 50 mls @ 100 mls/hr IV POSTOP@2200 [facility] Last Infusion: 04/28/21 23:29 Dose: 0 mls/hr Documented by: DELMER Meclizine HCl (Meclizine Hcl 25 Mg Tablet) 25 mg PO TID PRN PRN Reason: dizziness Last Admin: 04/27/21 20:58 Dose: 25 mg Documented by: YSABEL Metoprolol Succinate (Metoprolol Succinate Er 100 Mg Tab.Er.24h) 100 mg PO DAILY [facility]; Protocol Last Admin: 04/29/21 11:04 Dose: 100 mg Documented by: AWILDA Non-Formulary Medication (Rosuvastatin [Crestor]) 20 mg PO DAILY [facility] Ondansetron HCl (Ondansetron Hcl 4 Mg/2 Ml Vial) 4 mg IVPUSH Q4H PRN PRN Reason: Nausea Last Admin: 04/28/21 05:52 Dose: 4 mg Documented by: YSABEL Oxycodone HCl (Oxycodone Hcl Immed Release 5 Mg Tablet) 10 mg PO Q4H PRN PRN Reason: Pain, Moderate (Pain Scale 4-6 Last Admin: 04/29/21 04:19 Dose: 10 mg Documented by: DELMER Oxycodone HCl (Oxycodone Hcl Er 10 Mg Tab.Er.12h) 10 mg PO BID [facility] Last Admin: 04/29/21 11:05 Dose: 10 mg Documented by: AWILDA Pharmacy Consult (Consult Rx Perform Med Rec) 1 each MISCELLANE ONCE PRN PRN Reason: Consult order Polyethylene Glycol (Polyethylene Glycol 3350 17 Gm Powd.Pack) 17 gm PO DAILY [facility] Last Admin: 04/29/21 11:11 Dose: Not Given Documented by: AWILDA Non-Admin Reason: Patient Refused Sertraline HCl (Sertraline Hcl 100 Mg Tablet) 100 mg PO DAILY [facility] Last Admin: 04/29/21 11:04 Dose: 100 mg Documented by: AWILDA Sodium Chloride (0.9 % Sodium Chloride Flush 3 Ml Syringe) 3 ml IVFLUSH QSHIFT [facility] Last Admin: 04/29/21 11:05 Dose: 3 ml Documented by: AWILDA Labs CBC & Chem 7: 04/27/21 14:47 04/29/21 05:54 Labs: Laboratory Results - last 24 hr 04/29/21 05:54 Anion Gap 11 L Estim Creat Clear Calc 69.4 Estimated GFR > 60 Random Glucose 117 H Calcium 9.2 Assessment and Plan (1) Fracture dislocation of ankle: Status: Acute (2) COVID-19: Status: Acute (3) Anxiety and depression: Status: Acute (4) Hypertension: Status: Acute (5) Hypercholesterolemia: Status: Acute (6) Obesity: Status: Acute Assessment and Plan: 65-year-old female patient admitted under Orthopedic surgery due to mechanical fall and left ankle fracture. Mechanical fall with left ankle fracture s/p ORIf POD day 1 Pain management, weight-bearing and anticoagulation as per Ortho Continue Zofran and meclizine for nausea and dizziness. Continue incentive spirometry and stool softener Patient medically stable for discharge Hypertension Stable blood pressure with few high readings likely due to pain continue metoprolol , DC IV fluid Hyperlipidemia Continue Crestor, Anxiety/ depression Continue home medication COVID-19 infection, no hypoxia finger oximetry 100% on room air, initially diagnosed to have COVID on 04/17/2021, does not qualify for Decadron or remdesivir. Code status full code Quality Stroke Does the patient have a stroke diagnosis?: No VTE Prior VTE?: No VTE Risk Level:: Medical - moderate - high VTE Device Contraindication: Treatment Not Indicated VTE Drug Contraindication: N/A - Med Ordered
--- NOTE | 2021-04-29 12:43 | MHC.CM.PN ---
Received notification from CARRIE Stewart that patient will be discharged today. Per physical therapy eval, can safely go home with services. Referral made to [facility]. They are not able to see patient until Sunday. Per CARRIE Stewart, patient can wait until Sunday for a visit. Continue to monitor for d/c needs.
--- NOTE | 2021-04-30 10:16 | HO.POSTANES ---
Post Anesthesia Evaluation Post Anesthesia Evaluation Vital Signs: Patient seen yesterday morning 8am prior to discharge. Vitals were stablr Anesthesia: General Mental Status: Awake Pain Control: Satisfactory Nausea/Vomiting: None Hydration: Adequate Anesthesia-Related Issues: No Anes. Related Issues
--- NOTE | 2021-05-04 13:35 | P.OP_ITS ---
Operative Note Operative Note Date of Service: 04/28/21 Narrative: Date of Service: 04/28/21 Pre-op diagnosis: left trimal fracture dislocation Post-op diagnosis: same Procedure: 1) ORIF monica 2) ORIF syndesmosis Implants: Jesus lateral locking plate and screws 4.0 cannulated screws medially Arthrex syndesmosis tightrope Surgeon: Nolberto Burgos MD Anesthesia: GETA and local Was an Machine Finisher used for this Procedure?: No Estimated blood loss (mL): 75 IV fluids (mL): 1,000 Pathology: none sent Condition: stable Disposition: PACU Procedure in detail: Patient was brought to the operating room and placed supine on the operative table. All bony prominences were well padded and a time-out was called to identify proper site proper procedure proper surgeon. IV antibiotics per weight were administered. I began by exsanguinating the limb is slightly tourniquet to 300 mm Hg. I then made a standard posterolateral incision over the fibula. Full-thickness flaps were taken down to the fibular shaft and distal fibula. The fracture was identified and cleaned with a combination of curette, rongeur and irrigation. A lag screw was placed perpendicular to the fracture using standard AO technique. Once the fracture was stabilized a lobster claw was used to assist and reduction of the fracture and a distal fibular locking plate was applied using standard AO technique. Eight cortices proximal and for nonlocking screws distal to the fracture. Biplanar fluoroscopy was used to co nfirm hardware position and fracture reduction. Once I was satisfied that both of these were acceptable I irrigated copiously and turned my attention to the medial side. The transverse medial malleolar fracture was identified after skin incision. Full-thickness skin flaps were developed and, With a sharp tenaculum, the fracture was reduced. 2 threaded K-wires were then placed from distal to pr oximal and perpendicular to the fracture. Biplanar fluoroscopy was used to confirm positioning and then they were overdrilled and 2 40 mm 4.0 partially- threaded cannulated cancellous screws were placed across the fracture. I was satisfied with the position and the fracture reduction based on biplanar fluoroscopy. The posterior malleolar fracture was visualized and it was minimally displaced with approximately 20% of the articular surface affected. No further intervention was warranted This syndesmosis was tested using external rotation test and was found to be unstable. I then drilled from lateral to medial and posterior superior parallel but proximal to the articular surface at the approximate level of the physeal scar. A Arthrex syndesmosis tightrope was then applied. The button was flipped on the medial cortex and a large tenaculum was used to reduce the syndesmosis and the tightrope was tightened. All instrumentation was removed and copious irrigation was performed. Final radiographs were performed and hardware was in acceptable position and the fractures were reduced. Absorbable suture and idalia were used for closure and the patient was placed into sterile dressings and a well-padded posterior splint. Tourniquet was let down and the patient was extubated brought to recovery room in stable condition there were no known complications.
== END 2021-04-29 12:29 | disposition home health service (06) | DRG 313 ==
LOC: HO.ED 13:57 → HO.EDOVER 14:18
PROVIDERS: Orthopaedic Surgery; Admitting Provider Physician Assistant; Emergency Provider Emergency Medicine; PCP Internal Medicine; Visit Provider Physician Assistant
PROC: 0QSH04Z Reposition Left Tibia with Internal Fixation Device, Open Approach (ICD-10-PCS; principal; 2021-04-28 15:20)
DX: S82.852A Displaced trimalleolar fracture of left lower leg, initial encounter for closed fracture (principal); U07.1 COVID-19; W00.0XXA Fall on same level due to ice and snow, initial encounter; E66.9 Obesity, unspecified; E78.5 Hyperlipidemia, unspecified; I10 Essential (primary) hypertension; F41.9 Anxiety disorder, unspecified; F32.A Depression, unspecified; Z68.31 Body mass index [BMI] 31.0-31.9, adult; Z79.82 Long term (current) use of aspirin; Z79.899 Other long term (current) drug therapy
CPT/HCPCS: 0241U; 36415; 73564; 73610; 80048; 80053; 85025; 93005; 96374; 96375; 96376; 97116; 97161; 99152; 99285; C1713; J0131; J0690; J1100; J1170; J2250; J2405; J2765; J3010

== ENCOUNTER 2021-05-05 11:57 | Outpatient (REF) | payer OTHER, SELFPAY ==
--- NOTE | ~2021-05-05 | XR_ITS ---
EXAMINATION: XR ANKLE, LEFT CLINICAL INFORMATION: Pain in unspecified ankle and joints. Ankle fracture. Postop. COMPARISON: Right ankle done on 04/27/2021 and ORIF done on 04/28/2021. TECHNIQUE: AP, lateral, and mortise views of the left ankle. FINDINGS: Postsurgical changes of ORIF is noted at the distal left fibula and the medial malleolus of the left tibia. The hardware appear intact. The alignment is intact. 2 subcentimeter bony fragments are noted within the anterior tibiotalar joint space. XR/XR ankle LT min 3V IMPRESSION: Postop changes of ORIF involving the left ankle showing intact hardware and satisfactory alignment.
== END 2021-05-05 11:58 | disposition home or self-care (01) ==
LOC: HO.HOSX 11:57
PROVIDERS: Visit Provider Physician Assistant
DX: S82.899D Other fracture of unspecified lower leg, subsequent encounter for closed fracture with routine healing (principal)
CPT/HCPCS: 73610; 99212

== ENCOUNTER → 2021-05-12 13:45 | Outpatient (BNVA) | payer OTHER, SELFPAY | PROVIDERS: PCP Internal Medicine; Visit Provider Physician Assistant | DX: S82.899D Other fracture of unspecified lower leg, subsequent encounter for closed fracture with routine healing (principal) | CPT/HCPCS: 99212 ==

== ENCOUNTER 2021-06-09 07:24 | Outpatient (REF) | payer OTHER, SELFPAY ==
--- NOTE | ~2021-06-09 | XR_ITS ---
EXAMINATION: XR ANKLE, LEFT CLINICAL INFORMATION: Ankle pain. COMPARISON: Left ankle 05/05/2021. TECHNIQUE: AP, lateral, and mortise views of the left ankle. FINDINGS: There is a lateral fibular plate and screws for an old healed fracture. Two medial malleolar screws and a button for an old healed medial malleolar fracture. There is bimalleolar soft tissue swelling. Previously seen bimalleolar skin idalia have been removed. The ankle mortise and subtalar joints are normal. XR/XR ankle LT min 3V IMPRESSION: Stable postoperative changes left ankle with stabilized distal fibular and medial malleolar fractures. The skin idalia have been removed. There is mild bimalleolar soft tissue swelling.
== END 2021-06-09 07:25 | disposition home or self-care (01) ==
LOC: HO.HOSX 07:24
PROVIDERS: Visit Provider Physician Assistant
DX: S82.892D Other fracture of left lower leg, subsequent encounter for closed fracture with routine healing (principal); X58.XXXD Exposure to other specified factors, subsequent encounter
CPT/HCPCS: 73610; 99212

== ENCOUNTER → 2021-06-16 09:39 | Outpatient (BNVA) | payer OTHER, SELFPAY | PROVIDERS: PCP Internal Medicine; Visit Provider Physician Assistant | DX: S82.892D Other fracture of left lower leg, subsequent encounter for closed fracture with routine healing (principal) | CPT/HCPCS: 99212 ==

== ENCOUNTER 2021-07-15 07:07 | Outpatient (REF) | payer OTHER, SELFPAY ==
--- NOTE | ~2021-07-15 | XR_ITS ---
EXAMINATION: XR ANKLE, LEFT CLINICAL INFORMATION: Follow-up fracture. Pain. COMPARISON: Left ankle 06/09/2021 TECHNIQUE: AP, lateral, and mortise views of the left ankle. FINDINGS: There are 2 medial malleolar screws stabilizing medial malleolar fracture with a small but and medial cortex. There is a distal fibular fracture stabilized with a lateral plate and screws with the fracture fragment in alignment. The ankle mortise and subtalar joints are normal. There is a small calcaneal heel and retrocalcaneal enthesophytes. The subtalar joints are normal. XR/XR ankle LT min 3V IMPRESSION: 2 medial malleolar screws stabilizing medial malleolar fracture in alignment. There is a small medial cortex but not as well. No change from last study. Stabilized distal fibular fracture with lateral metallic plate and screws. No change from the last exam. Small calcaneal heel and retrocalcaneal enthesophytes.
== END 2021-07-15 07:08 | disposition home or self-care (01) ==
LOC: HO.HOSX 07:07
PROVIDERS: Visit Provider Physician Assistant
DX: S82.842D Displaced bimalleolar fracture of left lower leg, subsequent encounter for closed fracture with routine healing (principal)
CPT/HCPCS: 73610; 99212

== ENCOUNTER 2021-07-15 14:18 | Outpatient (REF) | payer OTHER, SELFPAY ==
--- NOTE | ~2021-07-15 | XR_ITS ---
EXAMINATION: XR LUMBOSACRAL SPINE CLINICAL INFORMATION: Radiculopathy. COMPARISON: None TECHNIQUE: Three views of the lumbosacral spine. FINDINGS: The vertebral bodies and posterior elements are normal. The disc spaces are preserved and the vertebral alignment is normal. There is mild ventral spondylosis at L2-L3 and L1-L2 disc level. The paraspinal soft tissues are normal. XR/XR lumbar spine 2-3V IMPRESSION: Mild ventral spondylosis L1-L2 and L2-L3 disc levels. Otherwise unremarkable lumbar spine exam..
== END 2021-07-15 14:19 | disposition home or self-care (01) ==
LOC: HO.HMGCX 14:18
PROVIDERS: Visit Provider Nurse Practitioner Family
DX: M54.16 Radiculopathy, lumbar region (principal)
CPT/HCPCS: 72100

== ENCOUNTER 2021-08-26 07:08 | Outpatient (REF) | payer OTHER, SELFPAY | END 2021-08-26 07:09 | disposition home or self-care (01) | LOC: HO.HOSX 07:08 | PROVIDERS: Visit Provider Physician Assistant | DX: S82.892D Other fracture of left lower leg, subsequent encounter for closed fracture with routine healing (principal); M47.816 Spondylosis without myelopathy or radiculopathy, lumbar region; X58.XXXD Exposure to other specified factors, subsequent encounter | CPT/HCPCS: 99212 ==

== ENCOUNTER 2021-09-12 11:00 | Outpatient (RCR) | payer OTHER, SELFPAY ==
--- NOTE | 2021-06-29 13:17 | MHC.PT.EP ---
[facility] [place] Office [place] Office [address] [place] [address] [phone] F: [phone] F: [phone] F: [phone] F: [phone] Physical Therapy Plan of Care Date of Evaluation: Date of Surgery: 04/28/21 Diagnosis: fracture of lt ankle Assessment: pt presents to physical therapy with pain, decreased range of motion, decreased strength, impaired functional mobility, impaired postural awareness, and gait deviations. pt is a good candidate for skilled PT due to age, potential remediation of impairments, typical disease/condition progression and prognosis, comorbidities, and motivation. pt would benefit from tailored strengthening and stretching exercise program, functional training, gait training, postural re-training, neuromuscular re-education, modalities as needed for pain, equipment safety demonstration. Frequency and Duration: The patient will be seen 2x/wk for 6 wks Short Term Goals: pt will be I w/ HEP to promote self-management of condition. pt will improve L ankle dorsiflexion to at least 10 degrees to promote improved weight translation during gait w/ LRAD. Associate Financial Advisor Goals: pt will report a statistically significant improvement in self-reported outcome measure, LEFI, to promote return to PLOF. pt will improve ambulate 1000' ft w/ LRAD and reciprocal gait pattern to promote return to community ambulation for grocery shopping. Treatment Plan: Modalities to reduce pain, spasms and effusion. Manual therapy to restore motion and function. Therapeutic exercise to improve strength and flexibility. Neuromuscular re-education for posture and balance. Therapeutic activities to return to functional activities of daily living. Electronically signed by: Yareli Handley PT, DPT Please sign and return to therapist. Thank you for your referral.
--- NOTE | 2021-09-13 13:42 | MHC.PT.DC ---
[facility] [place] Office [place] Office [place] Office [address] [place] [address] [facility] [phone] F: [phone] F: [phone] F: [phone] F: [phone] Physical Therapy Discharge Report Diagnosis: fracture of lt ankle Date of Surgery: 04/28/21 Date of Evaluation: 06/29/21 Date of Discharge: 09/13/21 Treatments to Date: 20 Cancellations to Date: 0 No Shows to Date: 0 Discharge Status: Achieved Goals Improved Function Independent with HEP Discharge Summary: The patient has achieved all goals established at initial evaluation. She is able to ambulate without an assistive device or external ankle stability orthotic and no impairments. She is within normal limits for her strength and range of motion. She is independent with her home exercise program. She is discharged from this physical therapy plan of care to her home exercise program. Electronically signed by: Yareli Handley PT, DPT Please sign and return to therapist. Thank you for your referral.
== END 2021-09-13 13:42 | disposition home or self-care (01) ==
LOC: HO.PT 11:00
PROVIDERS: PCP Internal Medicine; Visit Provider Physician Assistant
DX: S82.892D Other fracture of left lower leg, subsequent encounter for closed fracture with routine healing (principal)
CPT/HCPCS: 97110; 97112; 97116; 97140; 97162; 97530

== ENCOUNTER 2021-09-14 12:23 | Outpatient (REF) | payer OTHER, SELFPAY ==
--- NOTE | ~2021-09-14 | MM_ITS ---
EXAMINATION: BONE DENSITOMETRY CLINICAL INDICATION: Age-related osteoporosis without current pathological fracture. COMPARISON: Previous BD dated 01/19/2017 and baseline BD dated 08/24/2011. TECHNIQUE: Using a PlaySight DXA System (software version: 13.1) manufactured by [employer], dual-energy x-ray absorptiometry was performed of the lumbar spine and left hip. The images are of good technical quality. Summary results are attached. FINDINGS: AP SPINE L1-L4: Current: BMD 1.091 g/cm2, Z-score -0.4, T-score -0.7, normal, 0.9% decrease from previous, 2.9% increase from baseline (<5% change is not significant). Prior: BMD 1.101 g/cm2. Baseline: BMD 1.060 g/cm2. LEFT FEMUR, NECK: Current: BMD 0.957 g/cm2, Z-score 0.1, T-score -0.6, normal. Prior: BMD 1.077 g/cm2. Baseline: BMD 1.092 g/cm2. LEFT FEMUR, TOTAL: Current: BMD 0.985 g/cm2, Z-score 0.1, T-score -0.2, normal, 8.2% decrease from previous, 13.1% decrease from baseline (<5% change is not significant). Prior: BMD 1.073 g/cm2. Baseline: BMD 1.134 g/cm2. IDENTIFIED RISK FACTORS: Early menopause, secondary osteoporosis, recurrent falls. HISTORY OF FRACTURE: None listed. MEDICATIONS: Calcium supplements or multivitamin, vitamin D. MM/XR DEXA axial skeleton IMPRESSION: 1. DIAGNOSIS: Normal bone density based on the lowest T-score value of -0.7 in the lumbar spine applying World Health Organization criteria. 2. 10-YEAR FRACTURE RISK PREDICTION, FRAX: According to the guidelines, FRAX calculation should only be performed on patients in the osteopenia bone density category. Therefore, FRAX was not performed on this patient. 3. Treatment Recommendations: NOF guidelines recommend consideration for treatment in postmenopausal women and men age 50 and older presenting with the following: -A hip or vertebral (clinical or morphometric) fracture. -T-score less than or equal to -2.5 at the femoral neck or spine after appropriate evaluation to exclude secondary causes. -Low bone mass at the hip or spine and a 10-year fracture probability by FRAX of greater than or equal to 3% for hip fracture or greater than or equal to 20% for major osteoporotic fracture based on the [place] adapted WHO algorithm. 4. Other Recommendations: All treatment decisions require clinical judgment and consideration of individual patient factors, including patient preferences, comorbidities, previous drug use, risk factors not captured in the FRAX model (e.g. frailty, falls, vitamin D deficiency, increased bone turnover, interval significant decline in bone density) and possible under or overestimation of fracture risk by FRAX. FUTURE SCAN RECOMMENDATION: People with diagnosed cases of osteoporosis or at high risk for fracture should have regular bone mineral density tests. For patients eligible for Medicare, routine testing is allowed once every 2 years. The testing frequency can be increased to one year for patients who have rapidly progressing disease, those who are receiving or discontinuing medical therapy to restore bone mass, or have additional risk factors.
== END 2021-09-14 12:24 | disposition home or self-care (01) ==
LOC: HO.MAMMO 12:23
PROVIDERS: PCP Internal Medicine; Visit Provider Internal Medicine
DX: Z13.820 Encounter for screening for osteoporosis (principal); M81.0 Age-related osteoporosis without current pathological fracture; Z78.0 Asymptomatic menopausal state
CPT/HCPCS: 77080

== ENCOUNTER 2021-10-07 07:29 | Outpatient (REF) | payer OTHER, SELFPAY ==
--- NOTE | ~2021-10-07 | XR_ITS ---
EXAMINATION: XR ANKLE, LEFT CLINICAL INFORMATION: Pain left ankle and joint COMPARISON: Left ankle 07/15/2021 TECHNIQUE: AP, lateral, and mortise views of the left ankle. FINDINGS: There is a lateral fibular hardware with plate and screws for an old healed fracture. There are 2 medial malleolar screws for an old fracture. Also visualized is a small metallic button along the medial malleolus. The ankle mortise and subtalar joints are normal. There is a small calcaneal heel and retrocalcaneal enthesophytes. The soft tissues are normal. XR/XR ankle LT min 3V IMPRESSION: Slowly healing medial malleolar fracture and the distal fibular fracture with hardware, stable to last exam 07/15/2021. There is a small calcaneal heel and retrocalcaneal enthesophytes.
== END 2021-10-07 07:30 | disposition home or self-care (01) ==
LOC: HO.HOSX 07:29
PROVIDERS: Visit Provider Physician Assistant
DX: S82.892A Other fracture of left lower leg, initial encounter for closed fracture (principal)
CPT/HCPCS: 73610; 99212

== ENCOUNTER 2021-10-18 11:00 | Outpatient (RCR) | payer OTHER, SELFPAY ==
--- NOTE | 2021-09-15 12:18 | MHC.PT.EP ---
[facility] [place] Office [place] Office [place] Office [address] [place] [address] [phone] F: [phone] F: [phone] F: [phone] F: [phone] Physical Therapy Plan of Care Date of Evaluation: Date of Surgery: Diagnosis: spondylosis without myelopathy or radiculopathy, lumbar region Assessment: 66 y/o F referred to PT with lumbar spondylosis without myelopathy or radiculopathy. Of note, her pain started following slip and fall onto buttocks 04/2021 with concurrent L ankle fx. She had a Lankle ORIF and was in a walking boot for several weeks. She reports pain and difficulty with standing, walking, sleeping, lifting, and with everything. Examination shows decreased lumbar AROM (improves with flexion), decreased hip/core strength, altered SI mechanics, increased pain, and poos frontal plane control with gait. Recommend PT 2x/week for 5 weeks to address impairments, implement HEP, and optimize functional mobility. Frequency and Duration: The patient will be seen 2x/week for 5 weeks Short Term Goals: 3 weeks 1. I with HEP 2. Pt will improve R hip ER strength to 4/5 Care Home Goals: 5 weeks 1. I with HEP and self management with sx 2. Pt will be able to lift 15# grocery bag with pain < 3/10 3. Pt will report decrease in pain by 50% with walking (IR 8/10) Treatment Plan: Modalities to reduce pain, spasms and effusion. Manual therapy to restore motion and function. Therapeutic exercise to improve strength and flexibility. Neuromuscular re-education for posture and balance. Therapeutic activities to return to functional activities of daily living. Electronically signed by: Tamar Fairchild PT Please sign and return to therapist. Thank you for your referral.
--- NOTE | 2021-10-19 11:26 | MHC.PT.DC ---
[facility] [place] Office [place] Office [place] Office [address] [place] 140 [facility] [phone] F: [phone] F: [phone] F: [phone] F: [phone] Physical Therapy Discharge Report Diagnosis: spondylosis without myelopathy or radiculopathy, lumbar region Date of Surgery: Date of Evaluation: 09/15/21 Date of Discharge: 10/19/21 Treatments to Date: 7 Cancellations to Date: 0 No Shows to Date: 0 Discharge Status: Achieved Goals Improved Function Independent with HEP Discharge Summary: Appropriate for d/c at this time secondary to meeting goals and I with HEP. Electronically signed by: Tamar Fairchild PT Please sign and return to therapist. Thank you for your referral.
== END 2021-10-19 11:26 | disposition home or self-care (01) ==
LOC: HO.PT 11:00
PROVIDERS: PCP Internal Medicine; Visit Provider Internal Medicine
DX: M47.816 Spondylosis without myelopathy or radiculopathy, lumbar region (principal)
CPT/HCPCS: 97110; 97140; 97161; 97530

== ENCOUNTER 2021-11-21 10:28 | Outpatient (REF) | payer OTHER, SELFPAY ==
[2021-11-21 10:49] LABS: MANUAL DIFF FLAG NO
[2021-11-21 11:02] LABS: Basophils Percent Auto 0.2 % (0-2); Eosinophils Percent Auto 0.6 % (0-4); Hematocrit 42.2 % (37.0-47.0); Hemoglobin 13.6 g/dl (12.0-16.0); Imm Gran Abs Auto 0.02 X10*3/uL (0.00-0.03); Imm Gran Pct Auto 0.4 % (0.0-0.4); Lymphocytes Absolute Auto 1.6 X10*3/uL (1.2-4.9); Lymphocytes Percent Auto 31.1 % (20-40); Mean Corpuscular HGB Conc 32.2 g/dl (31.0-35.0); Mean Corpuscular Hemoglobin 27.3 pg (27.0-33.0); Mean Corpuscular Volume 84.6 fL (80.0-98.0); Mean Platelet Volume 8.4 fL (9.4-12.3); Monocytes Absolute Auto 0.3 X10*3/uL (0.1-1.2); Monocytes Percent Auto 6.6 % (2-11); Neutrophils Absolute Auto 3.1 x10*3/uL (2.0-8.3); Neutrophils Percent Auto 61.1 % (45-73); Platelet Count 160 X10*3/uL (160-400); Red Blood Count 4.99 X10*6/uL (4.20-5.50); Red Cell Distribution Width 12.6 % (11.0-16.0)
[2021-11-21 11:10] LABS: Estimated Average Glucose 108 mg/dL; Hemoglobin A1c % 5.4 %
[2021-11-21 11:48] LABS: Alanine Aminotransferase 28 U/L (0-31); Albumin Level 4.5 g/dL (3.5-5.0); Alkaline Phosphatase 86 U/L (39-117); Anion Gap 15 (12-20); Aspartate Amino Transferase 31 U/L (5-31); Bilirubin Total 0.6 mg/dL (0.0-1.0); Blood Urea Nitrogen 12 mg/dL (9-16); Calcium 9.6 mg/dL (8.4-10.2); Carbon Dioxide 25 mmol/L (22-29); Chloride 107 mmol/L (96-108); Cholesterol 201 mg/dL; Estimated Glomerular Filt Rate > 60; Glucose Random 107 mg/dL (60-115); HDL Cholesterol 50 mg/dL; LDL Cholesterol Calculated 120 mg/dl; Potassium 4.6 mmol/L (3.3-5.1); Sodium 142 mmol/L (135-145); Total Protein 7.6 g/dL (6.5-8.0); Triglycerides 155 mg/dL
[2021-11-21 11:54] LABS: Free T4 (Free Thyroxine) 0.89 ng/dL (0.71-1.85); Thyroid Stimulating Hormone 1.41 uIU/mL (0.32-4.0); Vitamin D 25-OH Total 39.7 ng/mL (>30)
[2021-11-21 12:22] LABS: Folate 17.3 ng/mL (> or = 4.0); Vitamin B12 1407 pg/mL (200-900)
== END 2021-11-21 10:29 | disposition home or self-care (01) ==
LOC: HO.LAB 10:28
PROVIDERS: PCP Internal Medicine; Visit Provider Internal Medicine
DX: R73.02 Impaired glucose tolerance (oral) (principal); E78.00 Pure hypercholesterolemia, unspecified
CPT/HCPCS: 36415; 80053; 80061; 82306; 82607; 82746; 83036; 84439; 84443; 85025

== ENCOUNTER 2021-12-29 16:06 | Outpatient (REF) | payer OTHER, SELFPAY ==
[2022-01-06 14:26] LABS: HPV mRNA E6/E7 rflx Not Detected (Not Detected)
== END 2021-12-29 16:07 | disposition home or self-care (01) ==
LOC: HO.LNP 16:06
PROVIDERS: Visit Provider Obstetrics & Gynecology
DX: Z01.419 Encounter for gynecological examination (general) (routine) without abnormal findings (principal)
CPT/HCPCS: 87624; 88142

== ENCOUNTER 2022-03-13 12:48 | Outpatient (REF) | payer OTHER, SELFPAY ==
--- NOTE | ~2022-03-13 | MM_ITS ---
EXAMINATION: MM SCREENING DIGITAL BREAST TOMOSYNTHESIS, BILATERAL CLINICAL INFORMATION: Screening. Asymptomatic. Family history breast cancer, mother. The lifetime risk of breast cancer based on the Tyrer-Cuzick Model is 8%. COMPARISON: Mammography: 03/11/2021, 03/08/2020, 08/01/2018 TECHNIQUE: Digital breast tomosynthesis is performed in both the craniocaudal and mediolateral oblique views along with computer-aided detection (CAD). Synthesized 2D images are generated from the tomosynthesis. FINDINGS: There are scattered areas of fibroglandular density (ACR BI-RADS breast composition Category b). There are no significant masses, abnormal calcifications, or other abnormalities. Parenchymal pattern is similar to prior studies. No developing density. No significant changes. The axilla are unremarkable. MM/MM tomosynthesis screening BI IMPRESSION: No mammographic evidence of malignancy. ASSESSMENT: BI-RADS 1: Negative RECOMMENDATION: Routine annual mammography screening. This patient's information was entered into a reminder system with a target due date for their next mammogram.
== END 2022-03-13 12:49 | disposition home or self-care (01) ==
LOC: HO.MAMMO 12:48
PROVIDERS: PCP Internal Medicine; Visit Provider Internal Medicine
DX: Z12.31 Encounter for screening mammogram for malignant neoplasm of breast (principal)
CPT/HCPCS: 77063; 77067

== ENCOUNTER 2022-03-27 09:58 | Outpatient (REF) | payer OTHER, SELFPAY ==
--- NOTE | ~2022-03-27 | XR_ITS ---
EXAMINATION: XR ABDOMEN KUB CLINICAL INDICATION: Hematuria COMPARISON: September 01, 2010 TECHNIQUE: AP view of the abdomen. FINDINGS: The bowel gas pattern is normal with no evidence of ileus or obstruction. No unusual soft tissue calcifications are noted. The bones are unremarkable. Psoas margins intact. XR/XR KUB IMPRESSION: No significant abnormality identified.
[2022-03-27 10:51] LABS: Urine Cytology See Pathology rpt
== END 2022-03-27 09:59 | disposition home or self-care (01) ==
LOC: HO.XRAY 09:58
PROVIDERS: PCP Internal Medicine; Visit Provider Internal Medicine
DX: R31.9 Hematuria, unspecified (principal)
CPT/HCPCS: 74018; 88112

== ENCOUNTER 2022-05-02 13:57 | Outpatient (REF) | payer OTHER, SELFPAY ==
--- NOTE | ~2022-05-02 | US_ITS ---
EXAMINATION: US RETROPERITONEAL LIMITED (RENAL ONLY) CLINICAL INFORMATION: Hematuria, unspecified. COMPARISON: X-ray abdomen KUB 03/27/2022. CT abdomen and pelvis 09/01/2010. TECHNIQUE: Real-time imaging of the kidneys. FINDINGS: RIGHT KIDNEY: 11.0 x 5.1 x 4.8 cm (SAG x AP x TRV). The kidney is normal in size, contour, and echogenicity. Renal cortical thickness is normal. No renal calculi or hydronephrosis. Upper pole simple cyst measures 26 mm. Bosniak 1. No follow-up indicated. LEFT KIDNEY: 9.9 x 5.3 x 4.6 cm (SAG x AP x TRV). The kidney is normal in size, contour, and echogenicity. Renal cortical thickness is normal. No focal parenchymal lesions or hydronephrosis. Upper pole does not obstructing stone measures 4 mm US/US renal BI IMPRESSION: Nonobstructing left-sided renal calculus. No hydronephrosis.
== END 2022-05-02 13:58 | disposition home or self-care (01) ==
LOC: HO.US 13:57
PROVIDERS: PCP Internal Medicine; Visit Provider Internal Medicine
DX: R31.9 Hematuria, unspecified (principal)
CPT/HCPCS: 76775

== ENCOUNTER 2022-10-12 13:59 | Outpatient (REF) | payer MEDICARE, MEDICAID, SELFPAY ==
--- NOTE | ~2022-10-12 | XR_ITS ---
EXAMINATION: XR ANKLE, LEFT CLINICAL INFORMATION: Left ankle pain and swelling. Status post or internal fixation April 2021. COMPARISON: October 07, 2021 and studies dating back to April 27, 2021 TECHNIQUE: AP, lateral, and mortise views of the left ankle. FINDINGS: There is no evidence of acute fracture or dislocation of the left ankle. There is some soft tissue swelling seen anteriorly. There is stable appearance of hardware for distal fibular fracture with sideplate and screws and 2 screws for medial malleolar fixation. No evidence of hardware failure. Calcaneal spurs sites of insertion of Achilles and plantar tendons seen. XR/XR ankle LT min 3V IMPRESSION: No evidence of hardware failure from previous trimalleolar left ankle fracture which is healed. No new fracture or dislocation identified. Calcaneal spurs.
== END 2022-10-12 14:00 | disposition home or self-care (01) ==
LOC: HO.HMGCX 13:59
PROVIDERS: PCP Internal Medicine; Visit Provider Physician Assistant
DX: M25.572 Pain in left ankle and joints of left foot (principal)
CPT/HCPCS: 73610

== ENCOUNTER 2022-10-31 12:42 | Emergency (ER) | payer MEDICARE, MEDICAID, SELFPAY ==
--- NOTE | 2022-10-31 13:04 | ED.GENADULT ---
HPI - General Adult General Chief complaint: Abdominal Pain Stated complaint: Back Pain No Injury Time Seen by Provider: 10/31/22 18:02 Source: patient Mode of arrival: ambulatory Limitations: no limitations History of Present Illness HPI narrative: 67-year-old female presents with right-sided flank pain radiating to the right groin. Symptoms are intermittent. They are severe. The symptoms are worse with movement. There is no numbness, tingling focal weakness. Symptoms started 1 week ago. She was started on meloxicam and cyclobenzaprine with minimal improvement. She denies any urinary frequency, urgency, dysuria or hematuria. She denies any fall, trauma or injury. Related Data Previous Rx's Medication Instructions Recorded commode (bedside commode) #1 ea 05/02/21 walker #1 ea 05/02/21 acetaminophen 500 mg tablet 1,000 mg PO Q6H PRN fever #90 tabs 05/03/21 metoprolol succinate 100 mg 100 mg PO DAILY #90 tabs 03/24/22 tablet,extended release 24 hr rosuvastatin 20 mg tablet (Crestor) 20 mg PO DAILY #90 tabs 03/24/22 sertraline 100 mg tablet 100 mg PO DAILY #90 tabs 03/24/22 meclizine 25 mg tablet 25 mg PO TID PRN dizziness #30 tabs 05/02/22 meloxicam 15 mg tablet 15 mg PO DAILY PRN pain 30 days 10/23/22 #90 tabs methocarbamol 750 mg tablet 750 mg PO Q8H PRN spasms #20 tabs 10/31/22 Allergies Allergy/AdvReac Type Severity Reaction Status Date / Time atorvastatin [Lipitor] Allergy Unknown Unknown Verified 10/27/22 15:02 lisinopril Allergy Unknown Unknown Verified 10/27/22 15:02 simvastatin Allergy Unknown Unknown Verified 10/27/22 15:02 Review of Systems Review of Systems: CONSTITUTIONAL: Denies weight loss, fever and chills. HEENT: Denies changes in vision and hearing. RESPIRATORY: Denies SOB and cough. CV: Denies palpitations no CP. GI: Denies abdominal pain, nausea, vomiting and diarrhea. : Denies dysuria and urinary frequency. MSK: + myalgia and joint pain. SKIN: Denies rash and pruritus. NEUROLOGICAL: Denies headache and syncope. PSYCHIATRIC: Denies recent changes in mood. Denies anxiety and depression. All other ROS are negative unless in HPI PMFSH Past Medical History Medical History Anxiety and depression Carpal tunnel syndrome Hypercholesterolemia Hypertension Impaired glucose tolerance Low back pain Obesity Osteopenia Postmenopausal bleeding Vertigo Well woman exam Surgical History History of foot surgery History of tonsillectomy History of tubal ligation Family History Family History Father No problems noted. Mother Skin cancer Breast cancer Paternal Uncle Myocardial infarction Brother No problems noted. Brother No problems noted. Sister No problems noted. Son No problems noted. Son No problems noted. Daughter No problems noted. Social History Social History Household Members: Spouse Housing: Apartment Alcohol intake: never Patient Tobacco Use Status: Never used Tobacco e-Cigarette/Vaping Use: Never Used Second Hand Smoke Exposure: No Advance Directives: No Advance Directives Information Provided: No service: No Current occupational status: unemployed Current occupational exposures/hazards: No Sexual orientation: Straight/Heterosexual Gender identity: Female Cognitive needs: No Hearing needs: No Vision needs: Yes Physical Exam ED Vital Signs: Vital Signs - 24 hr 10/31/22 13:06 Temperature 98.0 F Pulse Rate 77 Respiratory Rate 18 Blood Pressure 115/59 L Pulse Oximetry 95 Oxygen Delivery Method Room Air BMI result Body Mass Index 37.8 GEN: Well developed, no acute distress, alert, oriented HEENT: Normocephalic, atraumatic, normal external ears, nose appears normal, no oropharyngeal edema or exudates Eyes: Normal to appearance Neck: Supple, no lymphadenopathy Respiratory: Talks in complete sentences, no respiratory distress, clear to auscultation bilaterally Cardiovascular: Regular rate and rhythm, no murmurs rubs or gallops Abdomen: Soft, nontender, nondistended, no guarding, no rebound Back: No CVA tenderness, right sinus tenderness, right buttock tenderness, negative straight leg raise Extremities: No clubbing cyanosis or edema Neurologic: No focal neurologic deficits, cranial nerves 2-12 intact, strength is 5/5 bilaterally Skin: No rash Course Course Course Narrative: This is an RME: Additional HPI, ROS, PE not included below will be deferred to primary provider. Patient is a 67 year old female with a PMH of HTN, obesity, and lumbar spondylosis presents with right sided abdominal pain for the past week. Patient reports 8/10 constant pain. Patient reports taking flexaril, meloxicam. Patient denies fever, chills, headache, vision changes, nausea, vomiting, numbness, tingling. Plan: labs, Reevaluation(s) Reevaluation #1: The workup is complete. At this point, patient can be discharged. There is no evidence of hematuria. There is no significant findings for pyelonephritis. Her symptoms and examination are most consistent with musculoskeletal pain. Patient will continue meloxicam 15 mg daily, Tylenol will be started at 1000 mg every 6 hours as needed, she will stop cyclobenzaprine and start methocarbamol instead. I also discussed the use of capsaicin cream. Time: 19:58 Medical Decision Making Medical Decision Making MDM Narrative: Patient presents with right lower back/flank pain, radiating to right groin. No urinary symptoms. Examination is benign with the exception of right paraspinous tenderness, right buttock tenderness, negative straight leg raise. She has no real CVA tenderness. Will order CBC, chemistry. Would like to get urinalysis to make sure is no hematuria. There is in fact hematuria, would perform a CT scan. Patient has been on meloxicam and cyclobenzaprine. Would consider changing medications. Will provide patient with a dose of Toradol which has worked in the past. Differential diagnosis includes musculoskeletal pain, radiculopathy, muscle spasm, strain, strain, renal colic, pyelonephritis. Differential Diagnosis Differential Diagnoses: The differential diagnosis associated with the presentation includes (See above) Admission/Observation Consideration of admission/observation: Escalation of care including admission/observation considered Lab Data [facility] Lab Attestation statement: I reviewed the patient's lab results. 10/31/22 13:31 10/31/22 13:31 Labs: Lab Results 10/31/22 10/31/22 10/31/22 Range/Units 13:31 13:31 13:31 WBC 4.3 L (4.8-10.8) X10*3/uL RBC 4.64 (4.20-5.50) X10*6/uL Hgb 12.6 (12.0-16.0) g/dl Hct 39.8 (37.0-47.0) % MCV 85.8 (80.0-98.0) fL MCH 27.2 (27.0-33.0) pg MCHC 31.7 (31.0-35.0) g/dl RDW 12.7 (11.0-16.0) % Plt Count 142 L (160-400) X10*3/uL MPV 8.2 L (9.4-12.3) fL Immature Gran % (Auto) 0.2 (0.0-0.4) % Neut % (Auto) 63.8 (45-73) % Lymph % (Auto) 26.7 (20-40) % [facility] % (Auto) 7.7 (2-11) % Eos % (Auto) 1.4 (0-4) % Baso % (Auto) 0.2 (0-2) % Lymph # (Auto) 1.1 L (1.2-4.9) X10*3/uL [facility] # (Auto) 0.3 (0.1-1.2) X10*3/uL Eos # (Auto) 0.1 (0.0-0.4) X10*3/uL Baso # (Auto) 0.0 (0.0-0.2) X10*3/uL Abs Immat Gran (auto) 0.01 (0.00-0.03) X10*3/uL Absolute Neuts (auto) 2.7 (2.0-8.3) x10*3/uL Absolute Nucleated RBC 0.000 (0.0-0.012) X10*3/uL Nucleated RBC % (auto) 0.0 (0.0-0.2) /100WBC Sodium 141 (135-145) mmol/L Potassium 4.4 (3.3-5.1) mmol/L Chloride 106 (96-108) mmol/L Carbon Dioxide 28 (22-29) mmol/L Anion Gap 11 L (12-20) BUN 14 (9-16) mg/dL Creatinine 0.98 (0.5-1.4) mg/dL Estim Creat Clear Calc 65.7 Estimated GFR 57 Random Glucose 103 (60-115) mg/dL Calcium 10.3 H D (8.4-10.2) mg/dL Magnesium 2.2 (1.6-2.6) mg/dL Total Bilirubin 0.7 (0.0-1.0) mg/dL AST 22 (5-31) U/L ALT 21 (0-31) U/L Alkaline Phosphatase 70 (39-117) U/L Total Protein 7.2 (6.5-8.0) g/dL Albumin 4.2 (3.5-5.0) g/dL Lipase 18 (8-78) U/L Urine Color Urine Appearance Urine pH (5.0-9.0) Ur Specific [place] (1.005-1.025) Urine Protein (Neg-Trace) mg/dL Urine Glucose (UA) (Negative) mg/dL Urine Ketones (Negative) mg/dL Urine Blood (Negative) Urine Nitrite (Negative) Ur Leukocyte Esterase (Negative) Urine RBC (0-2) /HPF Urine WBC (0-5) /HPF Ur Squamous Epith Cells (0-2) /HPF Urine Bacteria (None Seen) Hyaline Casts (0-2) /LPF COVID-19 (MICHELE) Negative (Negative) COVID-19 Clin Com See Note 10/31/22 Range/Units 19:26 WBC (4.8-10.8) X10*3/uL RBC (4.20-5.50) X10*6/uL Hgb (12.0-16.0) g/dl Hct (37.0-47.0) % MCV (80.0-98.0) fL MCH (27.0-33.0) pg MCHC (31.0-35.0) g/dl RDW (11.0-16.0) % Plt Count (160-400) X10*3/uL MPV (9.4-12.3) fL Immature Gran % (Auto) (0.0-0.4) % Neut % (Auto) (45-73) % Lymph % (Auto) (20-40) % [facility] % (Auto) (2-11) % Eos % (Auto) (0-4) % Baso % (Auto) (0-2) % Lymph # (Auto) (1.2-4.9) X10*3/uL [facility] # (Auto) (0.1-1.2) X10*3/uL Eos # (Auto) (0.0-0.4) X10*3/uL Baso # (Auto) (0.0-0.2) X10*3/uL Abs Immat Gran (auto) (0.00-0.03) X10*3/uL Absolute Neuts (auto) (2.0-8.3) x10*3/uL Absolute Nucleated RBC (0.0-0.012) X10*3/uL Nucleated RBC % (auto) (0.0-0.2) /100WBC Sodium (135-145) mmol/L Potassium (3.3-5.1) mmol/L Chloride (96-108) mmol/L Carbon Dioxide (22-29) mmol/L Anion Gap (12-20) BUN (9-16) mg/dL Creatinine (0.5-1.4) mg/dL Estim Creat Clear Calc Estimated GFR Random Glucose (60-115) mg/dL Calcium (8.4-10.2) mg/dL Magnesium (1.6-2.6) mg/dL Total Bilirubin (0.0-1.0) mg/dL AST (5-31) U/L ALT (0-31) U/L Alkaline Phosphatase (39-117) U/L Total Protein (6.5-8.0) g/dL Albumin (3.5-5.0) g/dL Lipase (8-78) U/L Urine Color Yellow Urine Appearance Clear Urine pH 7.5 (5.0-9.0) Ur Specific [place] 1.015 (1.005-1.025) Urine Protein Negative (Neg-Trace) mg/dL Urine Glucose (UA) Negative (Negative) mg/dL Urine Ketones Negative (Negative) mg/dL Urine Blood Negative (Negative) Urine Nitrite Negative (Negative) Ur Leukocyte Esterase Small (1+) H (Negative) Urine RBC 0-2 (0-2) /HPF Urine WBC 6-10 H (0-5) /HPF Ur Squamous Epith Cells 0-2 (0-2) /HPF Urine Bacteria None Seen (None Seen) Hyaline Casts 0-2 (0-2) /LPF COVID-19 (MICHELE) (Negative) COVID-19 Clin Com Tests considered The following testing was considered but not selected: CT scan abdomen and pelvis to rule out renal stone if indicated Prescription Management I considered prescription management with: Pain Medication Chronic Conditions Patient?s care impacted by: Hypertension Discharge Plan Discharge Clinical Impression: Low back pain Patient Disposition: Home, Self-Care Instructions: Back Pain (ED) Additional Instructions: Dolor de cuatro a?os, seguir? tomando meloxicam 15 mg diarios. Adem?s, puede maye Tylenol/acetaminophen 1000 mg cada 6 horas seg?n sea necesario. Dejar? de maye ciclobenzaprina ketan relajante muscular y comenzar? con metocarbamol 750 mg 8 horas seg?n sea necesario. [place] puede causar somnolencia. Tambi?n recomiendo la crema de capsaicina cada 6-8 horas seg?n sea necesario. Prescriptions: New methocarbamol 750 mg tablet 750 mg PO Q8H PRN (Reason: spasms) Qty: 20 0RF No Action (DME) walker Misc See Rx Instructions .ROUTE .MEDSUPPLY Qty: 1 0RF Rx Instructions: Folding front wheeled walker (DME) bedside commode Kit See Rx Instructions .Route Qty: 1 0RF Rx Instructions: As directed - cannot get to toilet facilites, NWB, room confined meclizine 25 mg tablet 25 mg PO TID PRN (Reason: dizziness) Qty: 30 0RF meloxicam 15 mg tablet 15 mg PO DAILY PRN (Reason: pain) 30 Days Qty: 90 1RF acetaminophen 500 mg tablet 1,000 mg PO Q6H PRN (Reason: fever) Qty: 90 0RF metoprolol succinate 100 mg tablet extended release 24 hr 100 mg PO DAILY Qty: 90 2RF rosuvastatin [Crestor] 20 mg tablet 20 mg PO DAILY Qty: 90 2RF sertraline 100 mg tablet 100 mg PO DAILY Qty: 90 2RF Referrals: Richi,Kenzie Goode MD [Primary Care Provider] - 1 week Print Language: Azerbaijani
[2022-10-31 13:06] VITALS: BP 115/59; PULSE 77; RESP 18; TEMP 36.7; O2SAT 95; BMI 37.8
[2022-10-31 13:34] LABS: MANUAL DIFF FLAG NO
[2022-10-31 13:36] LABS: Basophils Percent Auto 0.2 % (0-2); Eosinophils Absolute Auto 0.1 X10*3/uL (0.0-0.4); Eosinophils Percent Auto 1.4 % (0-4); Hematocrit 39.8 % (37.0-47.0); Hemoglobin 12.6 g/dl (12.0-16.0); Imm Gran Abs Auto 0.01 X10*3/uL (0.00-0.03); Imm Gran Pct Auto 0.2 % (0.0-0.4); Lymphocytes Absolute Auto 1.1 X10*3/uL (1.2-4.9); Lymphocytes Percent Auto 26.7 % (20-40); Mean Corpuscular HGB Conc 31.7 g/dl (31.0-35.0); Mean Corpuscular Hemoglobin 27.2 pg (27.0-33.0); Mean Corpuscular Volume 85.8 fL (80.0-98.0); Mean Platelet Volume 8.2 fL (9.4-12.3); Monocytes Absolute Auto 0.3 X10*3/uL (0.1-1.2); Monocytes Percent Auto 7.7 % (2-11); Neutrophils Absolute Auto 2.7 x10*3/uL (2.0-8.3); Neutrophils Percent Auto 63.8 % (45-73); Platelet Count 142 X10*3/uL (160-400); Red Blood Count 4.64 X10*6/uL (4.20-5.50); Red Cell Distribution Width 12.7 % (11.0-16.0); White Blood Count 4.3 X10*3/uL (4.8-10.8)
[2022-10-31 13:50] LABS: COVID-19 Test Negative (Negative); IDNOW Serial# 55D5AD1C
[2022-10-31 13:58] LABS: Alanine Aminotransferase 21 U/L (0-31); Albumin Level 4.2 g/dL (3.5-5.0); Alkaline Phosphatase 70 U/L (39-117); Anion Gap 11 (12-20); Aspartate Amino Transferase 22 U/L (5-31); Bilirubin Total 0.7 mg/dL (0.0-1.0); Blood Urea Nitrogen 14 mg/dL (9-16); Calcium 10.3 mg/dL (8.4-10.2); Carbon Dioxide 28 mmol/L (22-29); Chloride 106 mmol/L (96-108); Creatinine Clr Calc Pharmacy 65.7; Estimated Glomerular Filt Rate 57; Glucose Random 103 mg/dL (60-115); Lipase 18 U/L (8-78); Magnesium 2.2 mg/dL (1.6-2.6); Potassium 4.4 mmol/L (3.3-5.1); Sodium 141 mmol/L (135-145); Total Protein 7.2 g/dL (6.5-8.0)
[2022-10-31 19:37] LABS: Appearance Urine Clear; Color Urine Yellow; Glucose Urine UA Negative (Negative); Leukocyte Esterase Urine Small (1+) (Negative); Nitrite Urine Negative (Negative); PH 7.5 (5.0-9.0); Specific Gravity - Urine 1.015 (1.005-1.025); UMIC TRIGGER UACC YES; Urine Blood Negative (Negative); Urine Ketones Negative (Negative); Urine Protein Negative (Neg-Trace)
[2022-10-31 19:42] LABS: Bacteria Urine None Seen (None Seen); Hyaline Casts Urine 0-2 /LPF (0-2); RBC Urine 0-2 /HPF (0-2); Squamous Epithelial Cell Urine 0-2 /HPF (0-2); UACC Culture Trigger YES
[2022-10-31 20:15] VITALS: BP 122/58; PULSE 70; RESP 16; TEMP 36.9; O2SAT 98
[2022-10-31] MEDS: Ketorolac Tromethamine 30 MG/ML VIAL IM (20:18)
== END 2022-10-31 20:22 | disposition home or self-care (01) ==
PROVIDERS: Physician Assistant; Emergency Provider Emergency Medicine; PCP Internal Medicine
DX: M54.50 Low back pain, unspecified (principal); Z20.822 Contact with and (suspected) exposure to COVID-19; I10 Essential (primary) hypertension; E78.00 Pure hypercholesterolemia, unspecified; E66.9 Obesity, unspecified; Z68.37 Body mass index [BMI] 37.0-37.9, adult; Z79.899 Other long term (current) drug therapy
CPT/HCPCS: 80053; 81001; 83690; 83735; 85025; 87086; 87635; 96372; 99284; J1885

== ENCOUNTER 2023-01-01 13:28 | Outpatient (AMB) | payer OTHER, SELFPAY ==
--- NOTE | 2023-01-01 13:29 | MHC.OFFVIS ---
Intake Vital Signs 01/01/23 13:30 Height 5 ft 4 in Weight 224 lb BMI 38.4 BP 122/80 Intake Visit Reasons: Annual Software Developer Manager Required: Yes Software Developer Manager Language: Fire Sprinkler Service Technician Name: Emilie STROUD Information Interpreted: non-clinical & clinical It Program Manager: It Program Manager Present (Emilie) Allergies atorvastatin [Lipitor] Allergy (Unknown, Verified 01/01/23 13:34) Unknown lisinopril Allergy (Unknown, Verified 01/01/23 13:34) Unknown simvastatin Allergy (Unknown, Verified 01/01/23 13:34) Unknown Is last menstrual period known: No Post menopausal: Yes Patient : No HPI HPI Comments History of Present Illness Details Presenting for annual exam. Complaining of right-sided pelvic pain over the last few weeks no associated urinary or GI symptoms no vaginal bleeding or discharge. Last Pap/HPV was in 01/12 was negative Last Mammogram was BI-RADS 1 in 03/14 Last DEXA scan was 03/14 worse in the low risk category Last Colonoscopy was in 07/10, the recommendation was to repeat screening colonoscopy in 10 years [facility] Medical History Well woman exam Vertigo Hypercholesterolemia Low back pain Postmenopausal bleeding Carpal tunnel syndrome Impaired glucose tolerance Anxiety and depression Hypertension Osteopenia Obesity Surgical History History of foot surgery History of tonsillectomy History of tubal ligation Family History Father No problems noted. Mother Skin cancer Breast cancer Paternal Uncle Myocardial infarction Brother No problems noted. Brother No problems noted. Sister No problems noted. Son No problems noted. Son No problems noted. Daughter No problems noted. Social History Household Members: Spouse Housing: Apartment Alcohol intake: never Patient Tobacco Use Status: Never used Tobacco e-Cigarette/Vaping Use: Never Used Second Hand Smoke Exposure: No service: No Current occupational status: unemployed Current occupational exposures/hazards: No Sexual orientation: Straight/Heterosexual Gender identity: Female Cognitive needs: No Hearing needs: No Vision needs: Yes Female Reproductive History Menstrual Age of Menarche: 13 control method: permanent sterilization Total pregnancies: 4 Full term: 3 Number of Living Children: 3 Ab spontaneous: 1 Date of last pap smear: 12/30/21 (negative) Date of Mammogram: 03/13/22 Date of last Bone Density Screenin09/14/21 Review of Systems Const All systems reviewed & are unremarkable except as noted in HPI and below Card Reports as per HPI Resp Reports as per HPI GI Reports as per HPI and Reports no additional complaints Reports as per HPI Physical Exam Vital Signs: Last Vital Signs BP 122/80 01/01/23 13:30 BMI result Body Mass Index 38.4 Const General: cooperative, healthy appearing and comfortable Chest Chest palpation & inspection: normal inspection of the chest and normal palpation of entire chest wall Breast/axilla inspection: normal inspection of the breasts and normal inspection of the axillae Breast/axilla palpation: normal palpation of the breasts, normal palpation of the axillae and no axillary lymphadenopathy Resp Effort & Inspection: normal respiratory effort Auscultation: clear to auscultation bilaterally Percussion: percussion normal Cardio Palpation: normal PMI Rate: regular rate Rhythm: regular rhythm Heart sounds: no murmurs and no rubs Peripheral pulses: Peripheral pulses 2+ throughout GI Inspection: Yes normal to inspection Palpation (GI): Soft to palpation, nontender, no guarding, not rigid and No hepatosplenomegaly present Percussion: Yes normal to percussion Auscultation: normal bowel sounds Rectal Exam - Female: deferred General: Yes bladder normal to palpation External Female Exam: No lesion Speculum Exam - Vagina: normal appearance of the vagina, normal palpation, normal vaginal discharge and not erythematous Speculum Exam - Cervix: normal appearance of the cervix and normal palpation Bimanual exam- vagina & uterus: normal bimanual exam, normal palpation, uterine size normal, bladder normal to palpation, consistency normal and normal palpation Bimanual Exam- Adnexa, other: normal adnexae, no masses and no tenderness Assessment & Plan Assessment & Plan (1) Well woman exam: Code(s): Z01.419 - Encounter for gynecological examination (general) (routine) without abnormal findings Plan: Co testing not indicated since the patient 's age is above 65 with no history of abnormal Pap smears last 25 years. Counseled the patient about the recommended dietary allowance of 1200 mg of Calcium & 800 IU of vitamin D. Mammogram ordered . The patient was instructed to perform monthly self-breast exams and to schedule an annual exam in a year; all questions answered and the patient verbalized understanding. (2) Pelvic pain: Code(s): R10.2 - Pelvic and perineal pain Plan: Urine dip done in the office was positive for blood. GC and chlamydia taken and pelvic ultrasound ordered. Discussed with the patient the differential diagnosis of pelvic pain including but not limited to adnexal, uterine masses, pelvic infections (PID), GI the (Irritable bowel syndrome, diverticulitis, others), musculoskeletal, myofascial pain abdominal wall , adhesions, endometriosis, psychological and others causes. All questions answered, the patient verbalized understanding. Instructed the patient to schedule follow-up appointment in 2 weeks (3) Microscopic hematuria: Code(s): R31.29 - Other microscopic hematuria Plan: Urine dip was positive for microscopic hematuria, will send urine for culture and repeat urine dip in 2 weeks. Instructions given to patient to schedule a 2 week repeat urine dip appointment. All questions answered, the patient verbalized understanding Orders: Orders MM screening mammo BI Today Z12.31 - Encounter for screening mammogram for malignant neoplasm of breast US pelvic and transvaginal Today R10.2 - Pelvic and perineal pain CT NG by PCR Today R10.2 - Pelvic and perineal pain Coding Level of Care Code Est Pt Level 3 (31627) Est Pt Prev Care 40-64y(73597) Diagnoses Well woman exam Z01.419 Pelvic pain R10.2 Microscopic hematuria R31.29
[2023-01-01 13:30] VITALS: BP 122/80; BMI 38.4
== END 2023-01-01 14:04 | disposition home or self-care (01) ==
PROVIDERS: Visit Provider Obstetrics & Gynecology
DX: R10.2 Pelvic and perineal pain (principal); R31.29 Other microscopic hematuria; Z01.419 Encounter for gynecological examination (general) (routine) without abnormal findings
CPT/HCPCS: 99213; G0101

== ENCOUNTER 2023-01-01 13:28 | Outpatient (REF) | payer OTHER, SELFPAY ==
[2023-01-01 18:06] LABS: CT PCR NOT DETECTED (Not Detect.); NG PCR NOT DETECTED (Not Detect.)
== END 2023-01-01 13:29 | disposition home or self-care (01) ==
LOC: HO.LNP 13:28
PROVIDERS: Visit Provider Obstetrics & Gynecology
DX: Z01.419 Encounter for gynecological examination (general) (routine) without abnormal findings (principal); R31.29 Other microscopic hematuria; R10.2 Pelvic and perineal pain
CPT/HCPCS: 0353U; 81002; 87086; 99212; G0101

== ENCOUNTER 2023-01-02 10:47 | Outpatient (REF) | payer OTHER, SELFPAY ==
[2023-01-02 11:04] LABS: MANUAL DIFF FLAG NO
[2023-01-02 11:30] LABS: Estimated Average Glucose 103 mg/dL; Hemoglobin A1c % 5.2 % (<6.0)
[2023-01-02 11:39] LABS: Basophils Percent Auto 0.4 % (0-2); Eosinophils Absolute Auto 0.1 X10*3/uL (0.0-0.4); Eosinophils Percent Auto 1.1 % (0-4); Hematocrit 42.3 % (37.0-47.0); Hemoglobin 13.3 g/dl (12.0-16.0); Imm Gran Abs Auto 0.01 X10*3/uL (0.00-0.03); Imm Gran Pct Auto 0.2 % (0.0-0.4); Lymphocytes Absolute Auto 1.6 X10*3/uL (1.2-4.9); Lymphocytes Percent Auto 29.7 % (20-40); Mean Corpuscular HGB Conc 31.4 g/dl (31.0-35.0); Mean Corpuscular Hemoglobin 27.6 pg (27.0-33.0); Mean Corpuscular Volume 87.8 fL (80.0-98.0); Mean Platelet Volume 8.8 fL (9.4-12.3); Monocytes Absolute Auto 0.4 X10*3/uL (0.1-1.2); Monocytes Percent Auto 7.1 % (2-11); Neutrophils Absolute Auto 3.3 x10*3/uL (2.0-8.3); Neutrophils Percent Auto 61.5 % (45-73); Platelet Count 186 X10*3/uL (160-400); Red Blood Count 4.82 X10*6/uL (4.20-5.50); Red Cell Distribution Width 12.8 % (11.0-16.0); White Blood Count 5.4 X10*3/uL (4.8-10.8)
[2023-01-02 12:23] LABS: Alanine Aminotransferase 31 U/L (0-31); Albumin Level 4.4 g/dL (3.5-5.0); Alkaline Phosphatase 70 U/L (39-117); Anion Gap 10 (12-20); Aspartate Amino Transferase 31 U/L (5-31); Bilirubin Total 0.6 mg/dL (0.0-1.0); Blood Urea Nitrogen 11 mg/dL (9-16); Calcium 9.7 mg/dL (8.4-10.2); Carbon Dioxide 31 mmol/L (22-29); Chloride 108 mmol/L (96-108); Cholesterol 193 mg/dL (<200); Estimated Glomerular Filt Rate > 60; Glucose Random 108 mg/dL (60-115); HDL Cholesterol 47 mg/dL (>40); LDL Cholesterol Calculated 115 mg/dL (<100); Potassium 4.5 mmol/L (3.3-5.1); Sodium 144 mmol/L (135-145); Total Protein 7.4 g/dL (6.5-8.0); Triglycerides 155 mg/dL (<150)
[2023-01-02 12:24] LABS: Free T4 (Free Thyroxine) 0.82 ng/dL (0.71-1.85); Thyroid Stimulating Hormone 1.25 uIU/mL (0.32-4.0); Vitamin D 25-OH Total 56.2 ng/mL (>30)
[2023-01-02 12:48] LABS: Folate 15.7 ng/mL (> or = 4.0); Vitamin B12 814 pg/mL (200-900)
== END 2023-01-02 10:48 | disposition home or self-care (01) ==
LOC: HO.LAB 10:47
PROVIDERS: PCP Internal Medicine; Visit Provider Internal Medicine
DX: R73.02 Impaired glucose tolerance (oral) (principal); E78.00 Pure hypercholesterolemia, unspecified; E55.9 Vitamin D deficiency, unspecified
CPT/HCPCS: 36415; 80053; 80061; 82306; 82607; 82746; 83036; 84439; 84443; 85025

== ENCOUNTER 2023-01-08 14:11 | Outpatient (AMB) | payer MEDICARE, SELFPAY ==
[2023-01-08 14:26] VITALS: BP 128/84; PULSE 74; O2SAT 97; BMI 38.1
--- NOTE | 2023-01-08 14:26 | MHC.PC.OV ---
Vital Signs 01/08/23 14:26 Height 5 ft 4 in Weight 222 lb BMI 38.1 BP 128/84 Blood Pressure Location Lt brachial Position Sitting Pulse 74 Pulse Source Pulse Oximeter Pulse Oximetry (%) 97 Oxygen Delivery Method Room Air Intake Visit Reasons: 6m F/U HTN Intake Note: Patient here for a 6 month follow up HTN Repairer Typewriter Required: Yes Repairer Typewriter Language: Greek Accompanied by: Self / Same As Patient Allergies atorvastatin [Lipitor] Allergy (Unknown, Verified 01/08/23 14:30) Unknown lisinopril Allergy (Unknown, Verified 01/08/23 14:30) Unknown simvastatin Allergy (Unknown, Verified 01/08/23 14:30) Unknown Medication List - Last Reconciled 01/08/23 by Kenzie Stoddard MD acetaminophen 1,000 mg (2 x 500 mg) PO Q6H PRN ascorbate calcium (vitamin C) 1 g PO Q6H cholecalciferol (vitamin D3) 25 mcg PO DAILY clotrimazole 1% appl topical DAILY meclizine 25 mg PO TID PRN meloxicam 15 mg PO DAILY PRN 30 days metoprolol succinate ER 100 mg PO DAILY rosuvastatin (Crestor) 20 mg PO DAILY sertraline 100 mg PO DAILY Tobacco use date assessed: 05/23/22 Fall risk assessment: No Falls in past year Last assessed Fall Risk: 01/08/23 Dental Screening Dental Screen Date: 01/08/23 Did you have a dental visit in the last 12 months?: No Did you have a dental problem in the last 6 months where you did not have access to dental care?: No Was dental information given to patient?: Patient has dentist HPI 6m F/U HTN HPI Details 67-year-old obese female with impaired glucose tolerance generalized anxiety disorder hypercholesterolemia hypertension and left renal stone last seen in April 2022 blood work was requested. Patient's colonoscopy is up-to-date mammogram due in February bone density is up-to-date. [id number] ([id number]) interpret discussed about the blood work. feeling cold, no fevrs, nos ore throat, , no sob , cough. complains of having a rash above the rectal area - placed on clotrimazole with no relief PFSH Medical History (Updated 01/08/23 @ 15:04 by Kenzie Stoddard MD) Left renal stone Well woman exam Vertigo Hypercholesterolemia Low back pain Postmenopausal bleeding Carpal tunnel syndrome Impaired glucose tolerance Anxiety and depression Hypertension Osteopenia Obesity Surgical History History of foot surgery History of tonsillectomy History of tubal ligation Family History Father No problems noted. Mother Skin cancer Breast cancer Paternal Uncle Myocardial infarction Brother No problems noted. Brother No problems noted. Sister No problems noted. Son No problems noted. Son No problems noted. Daughter No problems noted. Social History Household Members: Spouse Housing: Apartment Alcohol intake: never Patient Tobacco Use Status: Never used Tobacco e-Cigarette/Vaping Use: Never Used Second Hand Smoke Exposure: No service: No Current occupational status: unemployed Current occupational exposures/hazards: No Sexual orientation: Straight/Heterosexual Gender identity: Female Cognitive needs: No Hearing needs: No Vision needs: Yes Female Reproductive History Menstrual Age of Menarche: 13 Questionnaire Thrive Questionnaire Date Thrive assessed: 05/23/22 ABBY-7 AMB Questionnaire ABBY-7 Date ABBY - 7 assessed: 05/23/22 Source: Developed by Drs. Don Gallego, Pooja Carrasco, Antonio Wheatley and colleagues, with an educational kehinde from [employer]. Physical exam (Primary Care) Vital Signs: Last Vital Signs Pulse 74 01/08/23 14:26 BP 128/84 01/08/23 14:26 Pulse Ox 97 01/08/23 14:26 Oxygen Delivery Method Room Air 01/08/23 14:26 BMI result Body Mass Index 38.1 Tobacco/Smoking Status: Tobacco use Status Tobacco use date assessed 05/23/22 01/08/23 14:32 Patient Tobacco Use Status Never used Tobacco 01/08/23 14:32 e-Cigarette/Vaping Use Never Used 01/08/23 14:32 Thrive Assessment: Date of Thrive Assessment Date Thrive assessed 05/23/22 01/08/23 14:32 Const Other: posterior pharyngeal wall swelling noted General: alert; No acute distress Eyes Conjunctivae: conjunctivae normal Resp Auscultation: clear to auscultation bilaterally Cardio Rate: regular rate Rhythm: regular rhythm GI Inspection: Yes normal to inspection Back/Spine/Pelvis Other: noted above the rectal area a rash - erythematous area on the fold 2 by 4 cm with some satellite pin point lesions about - tried on antifungal but did not work. Extrem General: Yes normal to inspection and No edema Assessment and Plan Assessment & Plan (1) Impaired glucose tolerance: Code(s): R73.02 - Impaired glucose tolerance (oral) Plan: Decrease the amount of carbohydrate intake, pasta, bread, rice and potatoes are all sugar and that is aside from all the sweet stuff, remember that fruits are good but they are Sweet also. Hemoglobin A1c is in the normal range (2) Obesity: Code(s): E66.9 - Obesity, unspecified Plan: Diet and exercise (3) Hypercholesterolemia: Code(s): E78.00 - Pure hypercholesterolemia, unspecified Plan: Avoid fried foods, chicken skin, eggs, butter margarine, pastries and meat. Be it pork or beef they have a lot of cholesterol LDL goal of less than 130 and triglyceride of less than 150 patient is on rosuvastatin 20 mg once a day (4) Hypertension: Code(s): I10 - Essential (primary) hypertension Qualifiers: Hypertension type: essential hypertension Qualified Code(s): I10 - Essential (primary) hypertension Plan: Continue with blood pressure medication. Decrease salt intake and exercise patient takes metoprolol 100 mg once a day (5) Left renal stone: Comment: Upper pole April 2022 4 mm Code(s): N20.0 - Calculus of kidney Plan: Increase oral fluid (6) Generalized anxiety disorder: Code(s): F41.1 - Generalized anxiety disorder Plan: Continue with sertraline 100 mg once a day (7) Allergic rhinitis: Code(s): J30.9 - Allergic rhinitis, unspecified (8) Eczematous dermatitis: Code(s): L30.9 - Dermatitis, unspecified Medications: New triamcinolone acetonide 0.5% 1 appl topical BID 14 days 30 grams 0RF L30.9 - Dermatitis, unspecified Coding Level of Care Code Est Pt Level 4 (56056) Diagnoses Impaired glucose tolerance R73.02 Obesity E66.9 Hypercholesterolemia E78.00 Essential hypertension I10 Hypertension type: essential hypertension Left renal stone N20.0 Generalized anxiety disorder F41.1 Allergic rhinitis J30.9 Eczematous dermatitis L30.9
== END 2023-01-08 15:08 | disposition home or self-care (01) ==
PROVIDERS: PCP Internal Medicine; Visit Provider Internal Medicine
DX: R73.02 Impaired glucose tolerance (oral) (principal); E78.00 Pure hypercholesterolemia, unspecified; I10 Essential (primary) hypertension; N20.0 Calculus of kidney; F41.1 Generalized anxiety disorder; J30.9 Allergic rhinitis, unspecified; L30.9 Dermatitis, unspecified
CPT/HCPCS: 99214

== ENCOUNTER 2023-01-09 11:21 | Outpatient (REF) | payer MEDICARE, SELFPAY ==
--- NOTE | ~2023-01-09 | US_ITS ---
EXAMINATION: US PELVIS CLINICAL INFORMATION: Pelvic pain COMPARISON: None available. TECHNIQUE: Ultrasound of the pelvis is performed using both transabdominal and transvaginal transducers along with Doppler. Transvaginal imaging is performed due to inadequate visualization transabdominally. FINDINGS: The uterus is heterogeneous and measures 4.9 x 3.1 x 4.1 cm. No discrete fibroids appreciated. No significant free fluid. Visualization limited on transabdominal ultrasound images as patient bladder was empty. Nabothian cysts in the cervix. Endometrial thickness of 0.7 cm. Right ovary measures 2.2 x 0.9 x 1.5 cm, volume 1.6 mL. Left ovary measures 1.6 x 1.1 x 0.9 cm, volume 0.8 mL. US/US pelvic and transvaginal IMPRESSION: Endometrial thickness is 0.7 cm. Abnormal finding in a postmenopausal patient. Gynecologic consultation and endometrial biopsy recommended. This study was presented today 01/10/2023 at 2:03 PM for interpretation. PSA staff will provide results to referring provider at this time.
== END 2023-01-09 11:22 | disposition home or self-care (01) ==
LOC: HO.US 11:21
PROVIDERS: PCP Internal Medicine; Visit Provider Obstetrics & Gynecology
DX: R10.2 Pelvic and perineal pain (principal)
CPT/HCPCS: 76830; 76856

== ENCOUNTER 2023-01-12 10:08 | Outpatient (AMB) | payer MEDICARE, SELFPAY ==
[2023-01-12 11:29] VITALS: BP 140/78; PULSE 87; TEMP 36.2; O2SAT 95; BMI 38.2
--- NOTE | 2023-01-12 11:29 | AM.OFFWIN_ITS ---
Intake Vital Signs 01/12/23 11:29 Height 5 ft 4 in Weight 222 lb 8 oz BMI 38.2 BP 140/78 H Blood Pressure Location Lt brachial Position Sitting Pulse 87 Pulse Source Pulse Oximeter Temp 97.1 F Temp Source Temporal Artery Scan Pulse Oximetry (%) 95 Oxygen Delivery Method Room Air Intake Visit Reasons: EP Cough/Chest congestion (masked) Intake Note: Pt is here c/o cough and chest congestion for the last several days. Patient Tobacco Use Status: Never used Tobacco Allergies atorvastatin [Lipitor] Allergy (Unknown, Verified 01/12/23 11:30) Unknown lisinopril Allergy (Unknown, Verified 01/12/23 11:30) Unknown simvastatin Allergy (Unknown, Verified 01/12/23 11:30) Unknown Do you need a note to return to daycare/school/sports/work: No HPI HPI Comments History of Present Illness Details This is a 67-year-old female who presents to the office today for sick visit. Patient complaining of chest congestion, cough with yellow sputum, and mild sore throat x3 days. Patient reports some mild pain with coughing but otherwise denies any chest pain. She denies any shortness of breath. She denies any abdominal pain or nausea/ vomiting/ diarrhea. She denies any fever/chills. She denies any known sick contacts. PO z-dede, prednisone, and tessalon. [facility] Medical History (Updated 01/08/23 @ 15:04 by Kenzie Stoddard MD) Left renal stone Well woman exam Vertigo Hypercholesterolemia Low back pain Postmenopausal bleeding Carpal tunnel syndrome Impaired glucose tolerance Anxiety and depression Hypertension Osteopenia Obesity Surgical History History of foot surgery History of tonsillectomy History of tubal ligation Family History Father No problems noted. Mother Skin cancer Breast cancer Paternal Uncle Myocardial infarction Brother No problems noted. Brother No problems noted. Sister No problems noted. Son No problems noted. Son No problems noted. Daughter No problems noted. Social History Household Members: Spouse Housing: Apartment Alcohol intake: never Patient Tobacco Use Status: Never used Tobacco e-Cigarette/Vaping Use: Never Used Second Hand Smoke Exposure: No service: No Current occupational status: unemployed Current occupational exposures/hazards: No Sexual orientation: Straight/Heterosexual Gender identity: Female Cognitive needs: No Hearing needs: No Vision needs: Yes Female Reproductive History Menstrual Age of Menarche: 13 Review of Systems Const All systems reviewed & are unremarkable except as noted in HPI and below Reports no additional complaints Eyes Reports no additional complaints ENT Reports no additional complaints Card Reports no additional complaints Resp Reports no additional complaints GI Reports no additional complaints Reports no additional complaints Musc Reports no additional complaints Skin/Breast Reports system reviewed and no additional complaints, except as documented Neuro Reports no additional complaints Psych Reports no additional complaints Endo Reports no additional complaints Shaggy/Lymph Reports no additional complaints Aller/Immun Reports no additional complaints Physical Exam Vital Signs: Last Vital Signs Temp 97.1 F 01/12/23 11:29 Pulse 87 01/12/23 11:29 BP 140/78 H 01/12/23 11:29 Pulse Ox 95 01/12/23 11:29 Oxygen Delivery Method Room Air 01/12/23 11:29 BMI result Body Mass Index 38.2 Const Other: Vital signs reviewed. Constitutional: Non-toxic appearing. No acute distress. Well-developed and well-nourished. HEENT: Normocephalic and atraumatic. Tympanic membranes without erythema, edema, or bulging bilaterally. External auditory canals without erythema or edema bilaterally. Moist mucous membranes. No pharyngeal erythema or exudates. Skin: Warm and dry. No rashes or lesions noted. Neck: Full and painless range of motion. No cervical lymphadenopathy. Cardio: Regular rate and rhythm. No murmurs, gallops, or rubs. No lower extremity edema. No JVD. Pulmonary: No respiratory distress. No accessory muscle usage. Clear to auscultation bilaterally without wheezing, crackles, or rhonchi. Gastrointestinal: Soft, nontender, and nondistended in all 4 quadrants. Normoactive bowel sounds in all 4 quadrants. Genitourinary: No CVA tenderness. Musculoskeletal: Normal range of motion in joints throughout the body. No deformity or other signs of injury. Neuro: Alert and oriented x4. Cranial nerves 2-12 grossly intact. No focal defi cits appreciated. Psych: Normal mood and affect. Assessment & Plan Assessment & Plan (1) Acute bronchitis: Code(s): J20.9 - Acute bronchitis, unspecified (2) Viral URI: Code(s): J06.9 - Acute upper respiratory infection, unspecified Plan This is a 67-year-old female presenting to the office complaining of chest/nasal congestion, productive cough with yellow sputum, and mild sore throat. Patient's vital signs are stable, she is overall nontoxic appearing, and her physical exam is entirely benign. History and physical most consistent with a viral upper respiratory tract infection with acute bronchitis. Patient sent home on PO prednisone 40 mg daily x5 days, PO azithromycin 500 mg today followed by 250 mg daily x4 days, and PO benzonatate 100 mg 3 times daily as needed for cough. Recommended symptomatic management including rest, increased fluids, advil/tylenol for pain/fever, and over the counter throat lozenges/decongestants. Patient advised to follow up here or go to the emergency room for worsening/persistent symptoms. Patient verbalized understanding and is agreeable with the plan. Orders: Orders SARS-CoV2/FLU/RSV Today R09.89 - Other specified symptoms and signs involving the circulatory and respiratory systems Medications: New prednisone 40 mg (2 x 20 mg) PO DAILY 10 tabs 0RF benzonatate 100 mg PO TID PRN 10 caps 0RF cough azithromycin For 250 mg dose pack: take 500 mg today (day 1), then 250 mg for 4 days (days 2-5) PO 6 tabs 0RF Coding Level of Care Code Est Pt Level 3 (84189) Diagnoses Acute bronchitis J20.9 Viral URI J06.9
== END 2023-01-12 13:26 | disposition home or self-care (01) ==
PROVIDERS: PCP Internal Medicine; Visit Provider Physician Assistant Medical
DX: J20.9 Acute bronchitis, unspecified (principal); J06.9 Acute upper respiratory infection, unspecified
CPT/HCPCS: 99213

== ENCOUNTER 2023-01-12 13:15 | Outpatient (REF) | payer MEDICARE, SELFPAY ==
[2023-01-12 14:46] LABS: Influenza A PCR NEGATIVE (Negative); Influenza B PCR NEGATIVE (Negative); Resp Syncy Virus RNA Qual PCR NEGATIVE (Negative); SARS COV2 PCR INHOUSE NEGATIVE (Negative)
== END 2023-01-12 13:16 | disposition home or self-care (01) ==
LOC: HO.LNP 13:15
PROVIDERS: Visit Provider Physician Assistant Medical
DX: R09.89 Other specified symptoms and signs involving the circulatory and respiratory systems (principal); Z20.822 Contact with and (suspected) exposure to COVID-19
CPT/HCPCS: 0241U

== ENCOUNTER 2023-01-18 10:52 | Outpatient (REF) | payer OTHER, SELFPAY | END 2023-01-18 10:53 | disposition home or self-care (01) | LOC: HO.LNP 10:52 | PROVIDERS: PCP Internal Medicine; Visit Provider Obstetrics & Gynecology | DX: R31.29 Other microscopic hematuria (principal); R93.89 Abnormal findings on diagnostic imaging of other specified body structures | CPT/HCPCS: 58100; 88305; 99212 ==

== ENCOUNTER 2023-01-18 10:52 | Outpatient (AMB) | payer OTHER, SELFPAY ==
--- NOTE | 2023-01-18 10:59 | MHC.OFFVIS ---
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 Mill Operator Language: R Programmer Name: Emilie Cam Information Interpreted: non-clinical & clinical Public Health Assistant: Public Health Assistant Present (Emilie) Allergies atorvastatin [Lipitor] Allergy (Unknown, Verified 01/18/23 11:05) Unknown lisinopril Allergy (Unknown, Verified 01/18/23 11:05) Unknown simvastatin Allergy (Unknown, Verified 01/18/23 11:05) Unknown Is last menstrual period known: No Post menopausal: Yes Patient : No HPI HPI Comments History of Present Illness Details Presenting for repeat urine dip regarding previously diagnosed microscopic hematuria, urine culture was negative and for Follow-up ultrasound for pelvic pain. GC/chlamydia were negative. Pelvic ultrasound showed the following: The uterus is heterogeneous and measures 4.9 x 3.1 x 4.1 cm. No discrete fibroids appreciated. No significant free fluid. Visualization limited on transabdominal ultrasound images as patient bladder was empty. Nabothian cysts in the cervix. Endometrial thickness of 0.7 cm. Right ovary measures 2.2 x 0.9 x 1.5 cm, volume 1.6 mL. Left ovary measures 1.6 x 1.1 x 0.9 cm, volume 0.8 mL. [facility] Medical History Left renal stone Well woman exam Vertigo Hypercholesterolemia Low back pain Postmenopausal bleeding Carpal tunnel syndrome Impaired glucose tolerance Anxiety and depression Hypertension Osteopenia Obesity Surgical History History of foot surgery History of tonsillectomy History of tubal ligation Family History Father No problems noted. Mother Skin cancer Breast cancer Paternal Uncle Myocardial infarction Brother No problems noted. Brother No problems noted. Sister No problems noted. Son No problems noted. Son No problems noted. Daughter No problems noted. Social History Household Members: Spouse Housing: Apartment Alcohol intake: never Patient Tobacco Use Status: Never used Tobacco e-Cigarette/Vaping Use: Never Used Second Hand Smoke Exposure: No Patient : No service: No Current occupational status: unemployed Current occupational exposures/hazards: No Sexual orientation: Straight/Heterosexual Gender identity: Female Cognitive needs: No Hearing needs: No Vision needs: Yes Female Reproductive History Menstrual Age of Menarche: 13 control method: permanent sterilization Date of last pap smear: 12/30/21 (negative) Review of Systems Const All systems reviewed & are unremarkable except as noted in HPI and below Reports as per HPI and Reports no additional complaints GI Reports no additional complaints Reports no additional complaints Physical Exam Vital Signs: Last Vital Signs BP 134/80 01/18/23 11:03 BMI result Body Mass Index 38.1 Office Procedures Endometrial Biopsy Details: The patient was counseled regarding the indication and benefits of endometrial sampling to rule out endometrial pathology including not limited to endometrial hyperplasia or endometrial cancer and others; The alternatives (Either do nothing vs. hysteroscopy D&C) & the risks were discussed with the patient including but not limited: pain, uterine perforation, bleeding, infection, possible injury to bladder, bowel, ureter, possible need for blood transfusion with all its possible risks. The patient verbalized understanding all questions answered and signed consent. The patient was placed into the dorsal lithotomy position; a speculum was inserted in the vagina. Using aseptic technique for the procedure, the cervix was cleansed with Betadine. The anterior lip of the cervix was grasped with a single tooth tenaculum. The uterus was sounded to 5 cm with a 4 mm Pipelle was used. Tissues samples were obtained and placed in formalin, in a patient labeled container and sent to the pathology department. At the end of the procedure, there was minimal bleeding noted The patient tolerated the procedure well and was discharged in good condition with the following instructions: Nothing in the vagina until the bleeding stops. No sex until the bleeding stops, to call if any of the following occurs: fever (>100.4), flu-like symptoms, abdominal pain, heavy bleeding, four smelling vaginal discharge. The patient was instructed to schedule a Follow up appointment in 2 weeks to discuss pathology results of the biopsy and treatment options. This note was generated with a voice recognition program. Some errors may have been overlooked during the review of this note. Sometimes these errors may affect the content or meaning of a given sentence. [id number] Biopsy Assessment & Plan Assessment & Plan (1) Microscopic hematuria: Code(s): R31.29 - Other microscopic hematuria Plan: Repeat urine dip was negative for microscopic hematuria. The patient was reassured. Explained to the patient that previous microscopic hematuria at a setting of a thickened endometrium by ultrasound there is a suspicion of microscopic vaginal spotting, recommended endometrial biopsy. All questions answered, the patient verbalized understand (2) Thickened endometrium: Code(s): R93.89 - Abnormal findings on diagnostic imaging of other specified body structures Plan: Explained to the patient that previous microscopic hematuria at a setting of a thickened endometrium by ultrasound there is a suspicion of microscopic vaginal spotting. The negative predictive value, positive predictive value, Sensitivity, specificity of using ultrasound measurement of endometrial stripe to detecting endometrial pathology including hyperplasia , polyp or cancer were discussed with the patient. Recommended to the patient that the next step is an endometrial sampling via hysteroscopy D&C possible polypectomy versus endometrial biopsy to r/o endometrial pathology including hyperplasia or cancer. All the pros and cons risks and benefits of each approach were discussed with the patient, endometrial biopsy being less invasive, office procedure with less sensitivity and inability diagnose a polyp and removal versus hysteroscopy done under anesthesia more invasive more sensitive to endometrial cancer and possibility of diagnosing and endometrial polyp with the possibility of polypectomy. All questions were answered pt verbalized understanding and decided to proceed with endometrial biopsy Orders: Orders AMB Endometrial Biopsy Today R93.89 - Abnormal findings on diagnostic imaging of other specified body structures Coding Level of Care Code Est Pt Level 3 (61979) Procedure Only Diagnoses Microscopic hematuria R31.29 Thickened endometrium R93.89 CPT Codes Endometrial Biopsy - CPT: 60980-[id number] Biopsy ([id number])
[2023-01-18 11:03] VITALS: BP 134/80; BMI 38.1
== END 2023-01-18 12:06 | disposition home or self-care (01) ==
PROVIDERS: PCP Internal Medicine; Visit Provider Obstetrics & Gynecology
DX: R31.29 Other microscopic hematuria (principal); R93.89 Abnormal findings on diagnostic imaging of other specified body structures; N88.8 Other specified noninflammatory disorders of cervix uteri
CPT/HCPCS: 58100; 99213

== ENCOUNTER 2023-01-24 11:52 | Outpatient (AMB) | payer OTHER, SELFPAY ==
[2023-01-24 11:53] VITALS: BP 126/84; BMI 37.8
--- NOTE | 2023-01-24 11:53 | MHC.OFFVIS ---
Intake Vital Signs 01/24/23 11:53 Height 5 ft 4 in Weight 220 lb 7.396 oz BMI 37.8 BP 126/84 Intake Visit Reasons: pre op Regional Account Manager Required: Yes Regional Account Manager Language: Plant Senior Manager Name: Emilie STROUD Information Interpreted: non-clinical & clinical Accompanied by: Self / Same As Patient Allergies atorvastatin [Lipitor] Allergy (Unknown, Verified 01/24/23 11:54) Unknown lisinopril Allergy (Unknown, Verified 01/24/23 11:54) Unknown simvastatin Allergy (Unknown, Verified 01/24/23 11:54) Unknown Post menopausal: Yes HPI HPI Comments History of Present Illness Details Insufficient for endometrial evaluation; benign squamous epithelium and blood PFSH Medical History Left renal stone Well woman exam Vertigo Hypercholesterolemia Low back pain Postmenopausal bleeding Carpal tunnel syndrome Impaired glucose tolerance Anxiety and depression Hypertension Osteopenia Obesity Surgical History History of foot surgery History of tonsillectomy History of tubal ligation Family History Father No problems noted. Mother Skin cancer Breast cancer Paternal Uncle Myocardial infarction Brother No problems noted. Brother No problems noted. Sister No problems noted. Son No problems noted. Son No problems noted. Daughter No problems noted. Social History Household Members: Spouse Housing: Apartment Alcohol intake: never Patient Tobacco Use Status: Never used Tobacco e-Cigarette/Vaping Use: Never Used Second Hand Smoke Exposure: No service: No Current occupational status: unemployed Current occupational exposures/hazards: No Sexual orientation: Straight/Heterosexual Gender identity: Female Cognitive needs: No Hearing needs: No Vision needs: Yes Female Reproductive History Menstrual Age of Menarche: 13 Physical Exam Vital Signs: Last Vital Signs BP 126/84 01/24/23 11:53 BMI result Body Mass Index 37.8 Office Procedures Endometrial Biopsy Details: The patient was counseled regarding the indication and benefits of endometrial sampling to rule out endometrial pathology including not limited to endometrial hyperplasia or endometrial cancer and others; The alternatives (Either do nothing vs. hysteroscopy D&C) & the risks were discussed with the patient including but not limited: pain, uterine perforation, bleeding, infection, possible injury to bladder, bowel, ureter, possible need for blood transfusion with all its possible risks. The patient verbalized understanding all questions answered and signed consent. The patient was placed into the dorsal lithotomy position; a speculum was inserted in the vagina. Using aseptic technique for the procedure, the cervix was cleansed with Betadine. The anterior lip of the cervix was grasped with a single tooth tenaculum. The uterus was sounded to 5 cm with a 4 mm Pipelle was used with difficulty accessing the endometrial cavity with minimal tissue retrieved. Tissues samples were obtained and placed in formalin, in a patient labeled container and sent to the pathology department. At the end of the procedure, there was minimal bleeding noted The patient tolerated the procedure well and was discharged in good condition with the following instructions: Nothing in the vagina until the bleeding stops. No sex until the bleeding stops, to call if any of the following occurs: fever (>100.4), flu-like symptoms, abdominal pain, heavy bleeding, four smelling vaginal discharge. The patient was instructed to schedule a Follow up appointment in 2 weeks to discuss pathology results of the biopsy and treatment options. This note was generated with a voice recognition program. Some errors may have been overlooked during the review of this note. Sometimes these errors may affect the content or meaning of a given sentence. [id number] Biopsy Assessment & Plan Assessment & Plan (1) Thickened endometrium: Code(s): R93.89 - Abnormal findings on diagnostic imaging of other specified body structures Plan: Discussed with the patient the results the pathology, showing insufficient endometrium, recommended either no endometrial sampling given the fact that the patient does not have evidence of postmenopausal bleeding with the finding of an incidental endometrial thickness on ultrasound, repeat an EMB versus hysteroscopy D&C possible polypectomy/myomectomy. All pros and cons, risks and benefits of each approach were discussed with the patient. Explained to the patient with her history of endometrial ablation can cause endometrial adhesions and can cause obstacles in endometrial access for endometrial sampling. After a detailed discussion, the patient decided to proceed with office endometrial biopsy, EMB done, see procedure note Orders: Orders AMB Endometrial Biopsy Today R93.89 - Abnormal findings on diagnostic imaging of other specified body structures Coding Level of Care Code Est Pt Level 3 (91349) Procedure Only Diagnoses Thickened endometrium R93.89 CPT Codes Endometrial Biopsy - CPT: 63346-[id number] Biopsy ([id number])
== END 2023-01-24 15:18 | disposition home or self-care (01) ==
PROVIDERS: PCP Internal Medicine; Visit Provider Obstetrics & Gynecology
DX: R93.89 Abnormal findings on diagnostic imaging of other specified body structures (principal)
CPT/HCPCS: 58100

== ENCOUNTER 2023-01-24 11:52 | Outpatient (REF) | payer OTHER, SELFPAY | END 2023-01-24 11:53 | disposition home or self-care (01) | LOC: HO.LNP 11:52 | PROVIDERS: PCP Internal Medicine; Visit Provider Obstetrics & Gynecology | DX: R93.89 Abnormal findings on diagnostic imaging of other specified body structures (principal) | CPT/HCPCS: 58100; 88305 ==

== ENCOUNTER 2023-02-06 12:40 | Outpatient (AMB) | payer OTHER, SELFPAY ==
--- NOTE | 2023-02-06 13:00 | AM.OFFVISNUR ---
Intake Intake Visit Reasons: flu shot Allergies atorvastatin [Lipitor] Allergy (Unknown, Verified 01/24/23 11:54) Unknown lisinopril Allergy (Unknown, Verified 01/24/23 11:54) Unknown simvastatin Allergy (Unknown, Verified 01/24/23 11:54) Unknown Office Procedures Flu Questionnaire Does the patient have a severe egg allergy?: No Does the patient have severe life threatening allergies?: No Does the patient have a fever or illness today?: No Has the patient ever had Guillain-[place] Syndrome?: No Has the patient ever had any past reaction to a flu shot?: No Immunizations flu vacc [id number] 6mos up(PF) 60 mcg(15 mcgx4)/0.5 mL IM syringe Performing Provider: Kenzie Stoddard MD [facility] Administered by: Tricia Perez CMA on 02/06/23 13:00 Dose Route Admin Location Dispensed Lot Number Expiration Date NDC [employer] 0.5 mL IM Left Deltoid 0.5 mL [id number] 10/21/23 44795-935-47 [employer] VIS Given Date VIS Provided VIS Publication Date 02/06/23 Single Vaccine 20 Eligibility Eligibility Date Funding Source Not VF Eligible 02/06/23 Private Coding Assessment & Plan Assessment & Plan Orders: Orders Influenza [id number] Immunization Today Z23 - Encounter for immunization
== END 2023-02-06 13:07 | disposition home or self-care (01) ==
LOC: HO.HMGH 12:40
PROVIDERS: PCP Internal Medicine; Visit Provider Internal Medicine
DX: Z23 Encounter for immunization (principal)
CPT/HCPCS: 90471; 90686

== ENCOUNTER 2023-03-13 11:09 | Outpatient (AMB) | payer OTHER, SELFPAY ==
--- NOTE | 2023-03-13 11:12 | MHC.OFFVIS ---
Intake Vital Signs 03/13/23 11:17 Height 5 ft 4 in Weight 220 lb 7.396 oz BMI 37.8 BP 126/80 Intake Visit Reasons: EMB Results/DO NOT RS Housekeeper Caregiver Required: Yes Housekeeper Caregiver Language: Corrugated Fastener Driver Name: Emilie STROUD Clinical Psychology Professor: Clinical Psychology Professor Present Accompanied by: Self / Same As Patient Allergies atorvastatin [Lipitor] Allergy (Unknown, Verified 03/13/23 11:18) Unknown lisinopril Allergy (Unknown, Verified 03/13/23 11:18) Unknown simvastatin Allergy (Unknown, Verified 03/13/23 11:18) Unknown Is last menstrual period known: Yes Last menstrual period: 02/19/20 Post menopausal: Yes Patient : No Do you need a note to return to daycare/school/sports/work: Yes (for surgery on sunday) HPI HPI Comments History of Present Illness Details Presenting for follow-up post endometrial biopsy. Doing well with no complaints. The pathology showed the following: Endometrium, biopsy: - Scant superficial fragments of inflamed squamous epithelium with reactive changes. - Fibroinflammatory material. - Definitive endometrial sampling not identified. COMMENT: Recommend repeat sampling as clinically appropriate [facility] Medical History Left renal stone Well woman exam Vertigo Hypercholesterolemia Low back pain Postmenopausal bleeding Carpal tunnel syndrome Impaired glucose tolerance Anxiety and depression Hypertension Osteopenia Obesity Surgical History History of foot surgery History of tonsillectomy History of tubal ligation Family History Father No problems noted. Mother Skin cancer Breast cancer Paternal Uncle Myocardial infarction Brother No problems noted. Brother No problems noted. Sister No problems noted. Son No problems noted. Son No problems noted. Daughter No problems noted. Household Members: Spouse Housing: Apartment Alcohol intake: never Patient Tobacco Use Status: Never used Tobacco e-Cigarette/Vaping Use: Never Used Second Hand Smoke Exposure: No service: No Current occupational status: unemployed Current occupational exposures/hazards: No Sexual orientation: Straight/Heterosexual Gender identity: Female Cognitive needs: No Hearing needs: No Vision needs: Yes Female Reproductive History Menstrual Age of Menarche: 13 Date of last menstrual period: 02/19/20 Total pregnancies: 2 Full term: 2 Review of Systems Card Reports as per HPI and Reports no additional complaints Resp Reports as per HPI and Reports no additional complaints GI Reports as per HPI and Reports no additional complaints Reports as per HPI Physical Exam Const General: cooperative, healthy appearing and comfortable Chest Chest palpation & inspection: normal inspection of the chest and normal palpation of entire chest wall Breast/axilla inspection: normal inspection of the breasts and normal inspection of the axillae Breast/axilla palpation: normal palpation of the breasts, normal palpation of the axillae and no axillary lymphadenopathy Resp Effort & Inspection: normal respiratory effort Auscultation: clear to auscultation bilaterally Percussion: percussion normal Cardio Palpation: normal PMI Rate: regular rate Rhythm: regular rhythm Heart sounds: no murmurs and no rubs Peripheral pulses: Peripheral pulses 2+ throughout GI Inspection: Yes normal to inspection Palpation (GI): Soft to palpation, nontender, no guarding, not rigid and No hepatosplenomegaly present Percussion: Yes normal to percussion Auscultation: normal bowel sounds Rectal Exam - Female: deferred Assessment & Plan Assessment & Plan (1) Thickened endometrium: Code(s): R93.89 - Abnormal findings on diagnostic imaging of other specified body structures Plan: Discussed with the patient the results of the endometrial biopsy pathology showing no endometrial tissue was, therefore endometrial pathology including hyperplasia and/or malignancy has not been ruled out, recommended hysteroscopy D&C possible polypectomy/myomectomy. Discussed with the patient the procedure , all benefits and risks including but not limited to inability to complete the procedure , bleeding, infection, possible need for blood transfusion with all its risk ( HIV,syphilis, Hepatitis, anaphylaxis shock, others..), injury to bladder, rectum, possible need for laparoscopy/laparotomy or hysterectomy. The patient verbalized understanding and signed the consent. Instructions given the patient to schedule a 2 week postoperative appointment Coding Level of Care Code Est Pt Level 3 (73675) Diagnoses Thickened endometrium R93.89
[2023-03-13 11:17] VITALS: BP 126/80; BMI 37.8
== END 2023-03-13 12:21 | disposition home or self-care (01) ==
PROVIDERS: PCP Internal Medicine; Visit Provider Obstetrics & Gynecology
DX: R93.89 Abnormal findings on diagnostic imaging of other specified body structures (principal)
CPT/HCPCS: 99213

== ENCOUNTER → 2023-03-13 11:09 | Outpatient (BNVA) | payer OTHER, SELFPAY | PROVIDERS: PCP Internal Medicine; Visit Provider Obstetrics & Gynecology | DX: R93.89 Abnormal findings on diagnostic imaging of other specified body structures (principal) | CPT/HCPCS: 99212 ==

== ENCOUNTER 2023-03-19 10:30 | Outpatient (REF) | payer OTHER, SELFPAY | END 2023-03-19 10:31 | disposition home or self-care (01) | LOC: HO.MAMMO 10:30 | PROVIDERS: PCP Internal Medicine; Visit Provider Internal Medicine | DX: Z12.31 Encounter for screening mammogram for malignant neoplasm of breast (principal) | CPT/HCPCS: 77063; 77067 ==

== ENCOUNTER → 2023-03-19 12:30 | Outpatient (BNV) | payer OTHER, SELFPAY | PROVIDERS: PCP Internal Medicine; Visit Provider Radiology Diagnostic Radiology | DX: Z12.31 Encounter for screening mammogram for malignant neoplasm of breast (principal) | CPT/HCPCS: 77063; 77067 ==

== ENCOUNTER 2023-03-23 09:14 | Day surgery (SDC) | payer OTHER, SELFPAY ==
--- NOTE | 2023-03-21 15:09 | HO.ANESPROP2 ---
Documented by User: Emely Mcintyre NP 03/21/23 15:10 HPI - Anesthesia Eval Consult details Narrative: 67yo F for D&C Hysteroscopy,poss myomectomy,poss polypectomy, PMFSH Active Problems Active Problems: All Active Problems (Updated 01/18/23 @ 11:32 by Marcelino Ulloa MD) Thickened endometrium (Acute) Eczematous dermatitis (Acute) Left renal stone (Acute) Allergic rhinitis (Acute) Microscopic hematuria (Acute) Pelvic pain (Acute) Low back pain (Acute) Onychomycosis (Acute) Ingrown nail (Acute) Generalized anxiety disorder (Acute) Hypertension (Acute) Hypercholesterolemia (Acute) Lumbar spondylosis (Acute) Obesity (Acute) Fracture dislocation of ankle (Acute) COVID-19 (Acute) Annual physical exam (Acute) Fungal dermatitis (Acute) Impaired glucose tolerance (Acute) Past Medical History Medical History Left renal stone Well woman exam Vertigo Hypercholesterolemia Low back pain Postmenopausal bleeding Carpal tunnel syndrome Impaired glucose tolerance Anxiety and depression Hypertension Osteopenia Obesity Family History Family History Father No problems noted. Mother Skin cancer Breast cancer Paternal Uncle Myocardial infarction Brother No problems noted. Brother No problems noted. Sister No problems noted. Son No problems noted. Son No problems noted. Daughter No problems noted. Family history of problems with anesthesia: No Surgical History Surgical History History of foot surgery History of tonsillectomy History of tubal ligation History of Problems with Anesthesia: Yes (Ponv ) Social History Social History Household Members: Spouse Housing: Apartment Alcohol intake: never Patient Tobacco Use Status: Never used Tobacco e-Cigarette/Vaping Use: Never Used Second Hand Smoke Exposure: No Advance Directives: No Advance Directives Information Provided: Yes service: No Current occupational status: unemployed Current occupational exposures/hazards: No Sexual orientation: Straight/Heterosexual Gender identity: Female Cognitive needs: No Hearing needs: No Vision needs: Yes Meds Allergies Allergy/AdvReac Type Severity Reaction Status Date / Time atorvastatin [Lipitor] Allergy Unknown Unknown Verified 03/13/23 11:18 lisinopril Allergy Unknown Unknown Verified 03/13/23 11:18 simvastatin Allergy Unknown Unknown Verified 03/13/23 11:18 Home Medications Medication Instructions Recorded Confirmed Last Taken Type clotrimazole 1 % topical cream appl topical DAILY 01/01/23 01/08/23 Unknown History ascorbate calcium (vitamin C) 500 1 g PO Q6H 01/08/23 01/08/23 Unknown History mg tablet cholecalciferol (vitamin D3) 25 25 mcg PO DAILY 01/08/23 01/08/23 Unknown History mcg (1,000 unit) capsule Exam Pertinent Lab Results Pertinent Lab Results: Laboratory Tests 01/02/23 11:01 WBC 5.4 Hgb 13.3 Hct 42.3 Plt Count 186 D Sodium 144 Potassium 4.5 Chloride 108 Carbon Dioxide 31 H BUN 11 Creatinine 0.86 Assessment and Plan Assessment Anesthesia Assessment: Chart Reviewed Final Anesthetic Review Family History of Problems with Anesthesia: No History of Problems with Anesthesia: Yes (Ponv ) Documented by User: Rj Garcia MD 03/23/23 11:32 [facility] Past Medical History Medical History Left renal stone Well woman exam Vertigo Hypercholesterolemia Low back pain Postmenopausal bleeding Carpal tunnel syndrome Impaired glucose tolerance Anxiety and depression Hypertension Osteopenia Obesity Family History Family History Father No problems noted. Mother Skin cancer Breast cancer Paternal Uncle Myocardial infarction Brother No problems noted. Brother No problems noted. Sister No problems noted. Son No problems noted. Son No problems noted. Daughter No problems noted. Surgical History Surgical History History of foot surgery History of tonsillectomy History of tubal ligation Social History Social History Household Members: Spouse Housing: Apartment Alcohol intake: never Patient Tobacco Use Status: Never used Tobacco e-Cigarette/Vaping Use: Never Used Second Hand Smoke Exposure: No Advance Directives: No Advance Directives Information Provided: Yes service: No Current occupational status: unemployed Current occupational exposures/hazards: No Sexual orientation: Straight/Heterosexual Gender identity: Female Cognitive needs: No Hearing needs: No Vision needs: Yes Meds Allergies Allergy/AdvReac Type Severity Reaction Status Date / Time atorvastatin [Lipitor] Allergy Unknown Unknown Verified 03/13/23 11:18 lisinopril Allergy Unknown Unknown Verified 03/13/23 11:18 simvastatin Allergy Unknown Unknown Verified 03/13/23 11:18 Home Medications Medication Instructions Recorded Confirmed Last Taken Type clotrimazole 1 % topical cream appl topical DAILY 01/01/23 01/08/23 Unknown History ascorbate calcium (vitamin C) 500 1 g PO Q6H 01/08/23 01/08/23 Unknown History mg tablet cholecalciferol (vitamin D3) 25 25 mcg PO DAILY 01/08/23 01/08/23 Unknown History mcg (1,000 unit) capsule Exam Airway Mallampati Class: II TM Dist: <=3cm Neck ROM: Full Denture: Upper and Lower Loose/Missing/Broken Teeth: Yes, Upper and Lower Heart: ok Lungs: ok Assessment and Plan Assessment Anesthesia Assessment: Anesthesia Plan Discussed Final Anesthetic Review NPO: Yes ASA Class: III Final Preanesthetic Review: No Changes in Pt Med Stat, Meds/Allgs Chart Reviewed, Consent Obtained/Reviewed and Anes Risks/Benef Reviewed Patient Risk: Intermediate Procedure Risk: Low Anesthetic Plan Anesthetic Plan: GA and Agree w/ Assess. and Plan Disposition: Standard PACU
[2023-03-21 15:10] VITALS: BMI 37.8
[2023-03-23] VITALS (7 sets, daily range): BP systolic 124–143; BP diastolic 49–83; PULSE 61–69; RESP 14–18; TEMP 36.6–37.2; O2SAT 94–98; BMI 37.6
--- NOTE | 2023-03-23 11:42 | MHC.SHP ---
Pre-Procedural Eval Section A Date of Service: 03/23/23 The patient is an INPATIENT: No Changes since office visit: No Cold of Flu in the past 2 weeks, No New Medical Problems, No Changes in Medication and No Patient answered all questions The History & Physical has been completed within 30 days and I have reviewed it.: Yes Section B Chief Complaint: Abnormal findings on diagnostic imaging of other Allergies: Allergies Allergy/AdvReac Type Severity Reaction Status Date / Time atorvastatin [Lipitor] Allergy Unknown Unknown Verified 03/23/23 11:33 lisinopril Allergy Unknown Unknown Verified 03/23/23 11:33 simvastatin Allergy Unknown Unknown Verified 03/23/23 11:33 Plan Diagnosis/Plan: Unchanged I have reviewed the history and physical and performed a pertinent physical examination on my patient. No changes have occurred unless specified. Time Spent With Patient Time: Total time managing care of this patient today ____ minutes.
[2023-03-23] MEDS: Lactated Ringers 1,000 ML 100 ML IVCONT (12:06)
--- NOTE | 2023-03-23 13:23 | P.BOP_ITS ---
Brief Operative Note Date of Service: 03/23/23 Pre-op diagnosis: Thickened endometrium by ultrasound Post-op diagnosis: same (Normal endometrial cavity) Procedure: Hysteroscopy D&C Surgeon: Marcelino Ulloa MD Anesthesia: GLMA Was an Residential Care Facility Manager used for this Procedure?: No Estimated blood loss (mL): 0 Pathology: other (Endometrial Scrapping) Condition: stable Disposition: PACU
--- NOTE | 2023-03-23 13:23 | P.OP_ITS ---
Operative Note Operative Note Date of Service: 03/23/23 Narrative: Preop Diagnosis: Thickened endometrial by ultrasound Operation: Diagnostic Hysteroscopy, Dilataion & Curettage Post Op Diagnosis: Normal endometrial cavity QBL: Minimal Anesthesia: GLMA Surgeon: Marcelino Ulloa MD Human Resources Benefits Manager: None Complication: None Pathology: Endometrial Scrapings Procedure: The patient was put in the dorsal lithotomy position, scrubbed, and draped in the usual manner. A sterile speculum was inserted in the patient's vagina. The anterior lip of the cervix was grasped with a single tooth tenaculum. The cervix was dilated up to 5 mm, then the scope was inserted in the patient's uterus. Inspection revealed Normal endometrial cavity. The Myosure Reach device was used; the scope was removed from the endometrial cavity , sharp curettings was carried on with minimal to moderate amount of tissues retrieved. At the end of the procedure, all instruments were taken out of the patient uterine and vaginal cavity. The single tooth tenaculum was removed and homeostasis was assured using pressure,. The patient tolerated the procedure well and was transferred to the PACU in a stable condition.
[2023-03-23] MEDS: Acetaminophen 325 MG TABLET 650 MG PO (13:51)
[2023-03-23] MEDS: oxyCODONE HCl Immed Release 5 MG TABLET PO (13:51)
== END 2023-03-23 14:26 | disposition home or self-care (01) ==
PROVIDERS: PCP Internal Medicine; Visit Provider Obstetrics & Gynecology
PROC: 0UDB8ZZ Extraction of Endometrium, Via Natural or Artificial Opening Endoscopic (ICD-10-PCS; CPT 58558; principal; 2023-03-23 12:30)
DX: R93.89 Abnormal findings on diagnostic imaging of other specified body structures (principal); N95.0 Postmenopausal bleeding; F41.8 Other specified anxiety disorders; I10 Essential (primary) hypertension; E78.00 Pure hypercholesterolemia, unspecified; M85.80 Other specified disorders of bone density and structure, unspecified site; N20.0 Calculus of kidney; E66.9 Obesity, unspecified; R73.02 Impaired glucose tolerance (oral); Z68.37 Body mass index [BMI] 37.0-37.9, adult; Z79.899 Other long term (current) drug therapy; Z88.8 Allergy status to other drugs, medicaments and biological substances; Z98.51 Tubal ligation status
CPT/HCPCS: 58558; 88305; J1885; J2405; J2704; J3010

== ENCOUNTER → 2023-03-23 09:14 | Outpatient (BNV) | payer OTHER, SELFPAY | PROVIDERS: PCP Internal Medicine; Visit Provider Obstetrics & Gynecology | DX: R93.89 Abnormal findings on diagnostic imaging of other specified body structures (principal) | CPT/HCPCS: 58558 ==

== ENCOUNTER 2023-04-10 08:32 | Outpatient (AMB) | payer OTHER, SELFPAY ==
--- NOTE | 2023-04-10 08:47 | MHC.OFFVIS ---
Intake Vital Signs 04/10/23 08:52 Height 5 ft 4 in Weight 218 lb BMI 37.4 BP 130/78 Intake Visit Reasons: post op Roller Mill Tender Required: Yes Roller Mill Tender Language: Force Adjustment Supervisor Name: Emilie Cam Information Interpreted: non-clinical & clinical Machine Bender: Machine Bender Present (Emilie) Allergies atorvastatin [Lipitor] Allergy (Unknown, Verified 04/10/23 08:53) Unknown lisinopril Allergy (Unknown, Verified 04/10/23 08:53) Unknown simvastatin Allergy (Unknown, Verified 04/10/23 08:53) Unknown Is last menstrual period known: No Post menopausal: Yes Patient : No HPI HPI Comments History of Present Illness Details The patient is presenting post hysteroscopy D&C no complaints , passing gas and bowel movement normally with no nausea or vomiting, no fever or chills, no abdominal distension, no vaginal bleeding or abdominal pain. The pathology showed the following: Strips of inactive endometrium and fragments of adipose tissue; negative for atypia, hyperplasia or malignancy PFSH Medical History Left renal stone Well woman exam Vertigo Hypercholesterolemia Low back pain Postmenopausal bleeding Carpal tunnel syndrome Impaired glucose tolerance Anxiety and depression Hypertension Osteopenia Obesity Surgical History History of foot surgery History of tonsillectomy History of tubal ligation Family History Father No problems noted. Mother Skin cancer Breast cancer Paternal Uncle Myocardial infarction Brother No problems noted. Brother No problems noted. Sister No problems noted. Son No problems noted. Son No problems noted. Daughter No problems noted. Social History Household Members: Spouse Housing: Apartment Alcohol intake: never Patient Tobacco Use Status: Never used Tobacco e-Cigarette/Vaping Use: Never Used Second Hand Smoke Exposure: No Patient : No service: No Current occupational status: unemployed Current occupational exposures/hazards: No Sexual orientation: Straight/Heterosexual Gender identity: Female Cognitive needs: No Hearing needs: No Vision needs: Yes Female Reproductive History Menstrual Age of Menarche: 13 control method: permanent sterilization Date of last pap smear: 12/30/21 (negative) Review of Systems Const All systems reviewed & are unremarkable except as noted in HPI and below Reports as per HPI and Reports no additional complaints GI Reports no additional complaints Reports no additional complaints Physical Exam Vital Signs: Last Vital Signs BP 130/78 04/10/23 08:52 BMI result Body Mass Index 37.4 GI Palpation (GI): Soft to palpation and nontender Assessment & Plan Assessment & Plan (1) Thickened endometrium: Code(s): R93.89 - Abnormal findings on diagnostic imaging of other specified body structures Plan: Discussed with the patient the results of the endometrial biopsy showing inactive endometrium and strips of adipose tissue, suggestive of possible uterine perforation. Discussed with the patient the sensitivity, specificity, positive and negative predictive value, of endometrial biopsy in detecting endometrial pathology including but not limited to endometrial hyperplasia, cancer and other pathology; discussed with the patient the possible risk of perforation and bowel injury, signs symptoms of bowel injury were discussed with the patient and instructed the patient to call in case is abdominal pain, distension, fever above 100.4, nausea or vomiting. In addition instructions given the patient to call if vaginal bleeding bleeding recurs, the next step will be to proceed with a diagnostic hysteroscopy/D&C for further endometrial sampling evaluation to rule out endometrial pathology. All questions answered and the patient verbalized understanding and agreed with the plan. Coding Level of Care Code Est Pt Level 3 (40161) Diagnoses Thickened endometrium R93.89
[2023-04-10 08:52] VITALS: BP 130/78; BMI 37.4
== END 2023-04-10 11:04 | disposition home or self-care (01) ==
PROVIDERS: PCP Internal Medicine; Visit Provider Obstetrics & Gynecology
DX: R93.89 Abnormal findings on diagnostic imaging of other specified body structures (principal)
CPT/HCPCS: 99213

== ENCOUNTER → 2023-04-10 08:32 | Outpatient (BNVA) | payer OTHER, SELFPAY | PROVIDERS: PCP Internal Medicine; Visit Provider Obstetrics & Gynecology | DX: R93.89 Abnormal findings on diagnostic imaging of other specified body structures (principal) | CPT/HCPCS: 99212 ==

== ENCOUNTER 2023-06-15 11:54 | Outpatient (AMB) | payer OTHER, SELFPAY ==
--- NOTE | 2023-06-15 11:58 | A.OFFPC_ITS ---
Vital Signs 06/15/23 12:00 Height 5 ft 4 in Weight 213 lb BMI 36.6 BP 110/72 Blood Pressure Location Lt brachial Position Sitting Pulse 78 Pulse Source Pulse Oximeter Pulse Oximetry (%) 98 Oxygen Delivery Method Room Air Intake Visit Reasons: Annual Exam Flight Operations Inspector Required: Yes Flight Operations Inspector Language: Kuwaiti Allergies atorvastatin [Lipitor] Allergy (Unknown, Verified 06/15/23 12:02) Unknown lisinopril Allergy (Unknown, Verified 06/15/23 12:02) Unknown simvastatin Allergy (Unknown, Verified 06/15/23 12:02) Unknown Medication List - Last Reconciled 06/15/23 by Kenzie Stoddard MD acetaminophen 1,000 mg (2 x 500 mg) PO Q6H PRN ascorbate calcium (vitamin C) 1 g PO Q6H cholecalciferol (vitamin D3) 25 mcg PO DAILY magnesium 250 mg PO DAILY meclizine 25 mg PO TID PRN metoprolol succinate ER 100 mg PO DAILY rosuvastatin (Crestor) 20 mg PO DAILY sertraline 100 mg PO DAILY triamcinolone acetonide 0.5% 1 appl topical BID 14 days Tobacco use date assessed: 06/15/23 Fall risk assessment: No Falls in past year Last assessed Fall Risk: 06/15/23 Dental Screening Dental Screen Date: 06/15/23 Did you have a dental visit in the last 12 months?: Yes Did you have a dental problem in the last 6 months where you did not have access to dental care?: No Was dental information given to patient?: Patient has dentist HPI Annual Exam HPI Details 67-year-old obese female with impaired g lucose tolerance hypercholesterolemia hypertension nephrolithiasis generalized anxiety disorder last seen in December 2022 patient is here for physical exam. Patient's colonoscopy is up-to-date June 2019 mammogram is due bone density is up-to-date. Patient had the FOBT March 12-had the shingles and COVID-19 vaccine. Huey [id number] interpret [facility] Medical History Left renal stone Well woman exam Vertigo Hypercholesterolemia Low back pain Postmenopausal bleeding Carpal tunnel syndrome Impaired glucose tolerance Anxiety and depression Hypertension Osteopenia Obesity Surgical History History of foot surgery History of tonsillectomy History of tubal ligation Family History Father No problems noted. Mother Skin cancer Breast cancer Paternal Uncle Myocardial infarction Brother No problems noted. Brother No problems noted. Sister No problems noted. Son No problems noted. Son No problems noted. Daughter No problems noted. Social History Household Members: Spouse Housing: Apartment Alcohol intake: never Patient Tobacco Use Status: Never used Tobacco e-Cigarette/Vaping Use: Never Used Second Hand Smoke Exposure: No service: No Current occupational status: unemployed Current occupational exposures/hazards: No Sexual orientation: Straight/Heterosexual Gender identity: Female Cognitive needs: No Hearing needs: No Vision needs: Yes Female Reproductive History Menstrual Age of Menarche: 13 Questionnaire PHQ-9 Over the last 2 weeks, how often have you been bothered by any of the following problems? 1. Little interest or pleasure in doing things: not at all 2. Feeling down, depressed, or hopeless: several days 3. Trouble falling or staying asleep, or sleeping too much: not at all 4. Feeling tired or having little energy: not at all 5. Poor appetite or overeating: not at all 6. Feeling bad about yourself - or that you are a failure or have let yourself or your family down: not at all 7. Trouble concentrating on things, such as reading the newspaper or watching television: not at all 8. Moving or speaking so slowly that other people could have noticed. Or the opposite - being so fidgety or restless that you have been moving around a lot more than usual: not at all 9. Thoughts that you would be better off or of hurting yourself in some way: not at all Total score: 1 Depression Screening Interpretation: Negative Depression Screening Done: Yes Source: Developed by Drs. Don Gallego, Pooja Carrasco, Antonio Wheatley and colleagues, with an educational kehinde from [employer]. Thrive Questionnaire Date Thrive assessed: 05/23/22 AUDIT C Alcohol Use Questionnaire (AUDIT-C) 1. How often do you have a drink containing alcohol?: Never 3. How often do you have six or more drinks on one occasion?: Never Total Score: 0 Score Reviewed/Action Taken: Yes (reviewed no action needed) ABBY-7 AMB Questionnaire ABBY-7 Date ABBY - 7 assessed: 06/15/23 Feeling nervous, anxious, or on edge: 1 = Several days Not being able to stop or control worryin = Several days Worrying too much about different things: 0 = Not at all Trouble relaxin = Not at all Being so restless that it is hard to sit still: 0 = Not at all Becoming easily annoyed or irritable: 0 = Not at all Feeling afraid as if something awful might happen: 0 = Not at all Total ABBY-7 score (0-4 normal; 5-9 mild; 10-14 moderate; 15-21 severe): 2 Source: Developed by Drs. Don Gallego, Pooja Carrasco, Antonio Wheatley and colleagues, with an educational kehinde from [employer]. Review of Systems Const Denies poor appetite and Denies weakness Eyes Denies no additional complaints ENT Reports Normal hearing present, Denies dizziness, Denies nasal congestion, Denies tinnitus and Denies sore throat Card Denies chest pain, Denies syncope, Denies rapid heart rate and Denies dyspnea Resp Denies cough and Denies dyspnea GI Denies change in stool character, Reports constipation, Denies diarrhea, Denies nausea and Denies vomiting Denies urinary frequency, Denies difficulty voiding and Denies dysuria Neuro Reports Normal hearing present, Denies confusion, Denies dizziness, Denies syncope and Denies weakness Psych Denies confusion Physical exam (Primary Care) Vital Signs: Last Vital Signs Pulse 78 06/15/23 12:00 BP 110/72 06/15/23 12:00 Pulse Ox 98 06/15/23 12:00 Oxygen Delivery Method Room Air 06/15/23 12:00 BMI result Body Mass Index 36.6 Tobacco/Smoking Status: Tobacco use Status Tobacco use date assessed 06/15/23 06/15/23 12:05 Patient Tobacco Use Status Never used Tobacco 06/15/23 11:59 e-Cigarette/Vaping Use Never Used 06/15/23 11:59 PHQ-9: PHQ-9 Score PHQ-9: Total score 1 06/15/23 12:24 Depression Screening Interpretation: Negative Thrive Assessment: Date of Thrive Assessment Date Thrive assessed 05/23/22 06/15/23 11:59 Const General: No confusion Orientation/consciousness: No confusion HENMT Head: Yes normocephalic Ears: external ears normal and TM's normal bilaterally Face and sinus: Yes normal facial exam Mouth: moist mucous membranes Throat: Yes tonsils normal Eyes Conjunctivae: conjunctivae normal Pupils: Equal, round and reactive pupils present and Pupil accommodation reflex normal Direct Ophthalmoscopy: normal light reflex Neck Neck: No lymphadenopathy Thyroid: Thyroid normal Chest Chest palpation & inspection: normal inspection of the chest Resp Effort & Inspection: normal respiratory effort and no audible wheezes Auscultation: clear to auscultation bilaterally, no crackles, no wheezes and lung sounds not diminished Cardio Rate: regular rate Rhythm: regular rhythm Peripheral pulses: radial pulses present and dorsalis pedis present GI Palpation (GI): no masses Auscultation: normal bowel sounds and normoactive bowel sounds Rectal Exam - Female: deferred Skin General skin exam: no rashes or lesions noted Rashes: no rashes Neuro General: No confusion Cranial nerves: Yes Equal, round and reactive pupils present and Yes Normal hearing present Cognition (Neuro): normal cognition Gait exam (Neuro): Normal gait present Motor exam (neuro): 5/5 motor strength present throughout Deep tendon reflexes (DTR's): Right brachioradialis reflex intensity grade: 2+, Left brachioradialis reflex intensity grade: 2+, Right patellar reflex intensity grade: 2+ and Left patellar reflex intensity grade: 2+ Extrem General: No edema Immunizations pneumoc 20-khadar conj-dip cr(PF) 0.5 mL IM syringe Performing Provider: Kenzie Stoddard MD Performing Location: [facility] Administered by: LUANNE Mitchell on 06/15/23 12:43 Dose Route Admin Location Dispensed Lot Number Expiration Date NDC Software Engineer Developer 0.5 mL IM Left Deltoid 0.5 mL [id number] 08/21/24 [employer] VIS Given Date VIS Provided VIS Publication Date 06/15/23 Single Vaccine 21 Eligibility Eligibility Date Funding Source Not VFC Eligible 06/15/23 Private Assessment and Plan Assessment & Plan (1) Annual physical exam: Code(s): Z00.00 - Encounter for general adult medical examination without abnormal findings (2) Obesity: Code(s): E66.9 - Obesity, unspecified Plan: Continue with diet and exercise (3) Hypertension: Code(s): I10 - Essential (primary) hypertension Qualifiers: Hypertension type: essential hypertension Qualified Code(s): I10 - Essential (primary) hypertension Plan: Continue with blood pressure medication. Decrease salt intake and exercise patient takes metoprolol 100 mg once a day (4) Hypercholesterolemia: Code(s): E78.00 - Pure hypercholesterolemia, unspecified Plan: Avoid fried foods, chicken skin, eggs, butter margarine, pastries and meat. Be it pork or beef they have a lot of cholesterol LDL goal of less than 130 and triglyceride of less than 150. Patient on rosuvastatin 20 mg once a (5) Generalized anxiety disorder: Code(s): F41.1 - Generalized anxiety disorder Plan: Continue with present therapy (6) Impaired glucose tolerance: Code(s): R73.02 - Impaired glucose tolerance (oral) Plan: Decrease the amount of carbohydrate intake, pasta, bread, rice and potatoes are all sugar and that is aside from all the sweet stuff, remember that fruits are good but they are Sweet also. Orders: Orders Comprehensive Met. Panel 6 Months E78.00 - Pure hypercholesterolemia, unspecified Vitamin D 25-OH Total 6 Months E78.00 - Pure hypercholesterolemia, unspecified Pneumococcal 20 Immunization Today Z23 - Encounter for immunization Complete Blood Count Auto Diff 6 Months E78.00 - Pure hypercholesterolemia, unspecified Free T4 (Free Thyroxine) 6 Months E78.00 - Pure hypercholesterolemia, unspecified Thyroid Stimulating Hormone 6 Months E78.00 - Pure hypercholesterolemia, unspecified Lipid Panel 6 Months E78.00 - Pure hypercholesterolemia, unspecified Vitamin B12 and Folate 6 Months E78.00 - Pure hypercholesterolemia, unspecified Medications: Refilled sertraline 100 mg PO DAILY 90 tabs 2RF E78.00 - Pure hypercholesterolemia, unspecified Coding Level of Care Code Est Pt Prev Care >65y(43749) Diagnoses Annual physical exam Z00.00 Obesity E66.9 Essential hypertension I10 Hypertension type: essential hypertension Hypercholesterolemia E78.00 Generalized anxiety disorder F41.1 Impaired glucose tolerance R73.02
[2023-06-15 12:00] VITALS: BP 110/72; PULSE 78; O2SAT 98; BMI 36.6
== END 2023-06-15 12:48 | disposition home or self-care (01) ==
PROVIDERS: Visit Provider Internal Medicine
DX: Z00.00 Encounter for general adult medical examination without abnormal findings (principal); E66.9 Obesity, unspecified; Z68.36 Body mass index [BMI] 36.0-36.9, adult; Z23 Encounter for immunization; I10 Essential (primary) hypertension; E78.00 Pure hypercholesterolemia, unspecified; F41.1 Generalized anxiety disorder; R73.02 Impaired glucose tolerance (oral)
CPT/HCPCS: 90471; 90677; 99397

== ENCOUNTER 2023-12-05 10:30 | Outpatient (REF) | payer OTHER, SELFPAY ==
[2023-12-05 10:48] LABS: MANUAL DIFF FLAG NO
[2023-12-05 13:10] LABS: Alanine Aminotransferase 32 U/L (0-31); Albumin Level 4.4 g/dL (3.5-5.0); Alkaline Phosphatase 61 U/L (39-117); Anion Gap 14 (12-20); Aspartate Amino Transferase 31 U/L (5-31); Bilirubin Total 0.6 mg/dL (0.0-1.0); Blood Urea Nitrogen 16 mg/dL (9-16); Calcium 9.7 mg/dL (8.4-10.2); Carbon Dioxide 24 mmol/L (22-29); Chloride 107 mmol/L (96-108); Cholesterol 205 mg/dL (<200); Estimated Glomerular Filt Rate > 60; Glucose Random 99 mg/dL (60-115); HDL Cholesterol 47 mg/dL (>40); LDL Cholesterol Calculated 127 mg/dL (<100); Sodium 141 mmol/L (135-145); Total Protein 7.4 g/dL (6.5-8.0); Triglycerides 157 mg/dL (<150)
[2023-12-05 13:18] LABS: Free T4 (Free Thyroxine) 0.87 ng/dL (0.71-1.85); Thyroid Stimulating Hormone 1.27 uIU/mL (0.32-4.0); Vitamin D 25-OH Total 79.4 ng/mL (>30)
[2023-12-05 13:26] LABS: Folate 14.2 ng/mL (> or = 4.0); Vitamin B12 837 pg/mL (200-900)
[2023-12-05 13:51] LABS: Basophils Percent Auto 0.5 % (0-2); Eosinophils Absolute Auto 0.1 X10*3/uL (0.0-0.4); Eosinophils Percent Auto 1.2 % (0-4); Hematocrit 40.6 % (37.0-47.0); Hemoglobin 13.5 g/dl (12.0-16.0); Imm Gran Abs Auto 0.01 X10*3/uL (0.00-0.03); Imm Gran Pct Auto 0.2 % (0.0-0.4); Lymphocytes Absolute Auto 1.4 X10*3/uL (1.2-4.9); Lymphocytes Percent Auto 34.4 % (20-40); Mean Corpuscular HGB Conc 33.3 g/dl (31.0-35.0); Mean Corpuscular Volume 84.2 fL (80.0-98.0); Monocytes Absolute Auto 0.3 X10*3/uL (0.1-1.2); Monocytes Percent Auto 7.7 % (2-11); Neutrophils Absolute Auto 2.2 x10*3/uL (2.0-8.3); Platelet Count 151 X10*3/uL (160-400); Red Blood Count 4.82 X10*6/uL (4.20-5.50); Red Cell Distribution Width 12.7 % (11.0-16.0)
== END 2023-12-05 10:31 | disposition home or self-care (01) ==
LOC: HO.LAB 10:30
PROVIDERS: PCP Internal Medicine; Visit Provider Internal Medicine
DX: E78.00 Pure hypercholesterolemia, unspecified (principal)
CPT/HCPCS: 36415; 80053; 80061; 82306; 82607; 82746; 84439; 84443; 85025

== ENCOUNTER 2023-12-14 12:14 | Outpatient (AMB) | payer OTHER, SELFPAY ==
[2023-12-14 12:46] VITALS: BP 132/70; PULSE 74; O2SAT 96; BMI 37.1
--- NOTE | 2023-12-14 12:46 | A.OFFPC_ITS ---
Vital Signs 12/14/23 12:46 Height 5 ft 4 in Weight 216 lb 4 oz BMI 37.1 BP 132/70 Blood Pressure Location Lt brachial Position Sitting Pulse 74 Pulse Source Pulse Oximeter Pulse Oximetry (%) 96 Oxygen Delivery Method Room Air Intake Visit Reasons: Cholesterol House Piping Inspector Required: No Accompanied by: Self / Same As Patient Allergies atorvastatin [Lipitor] Allergy (Unknown, Verified 12/14/23 12:47) Unknown lisinopril Allergy (Unknown, Verified 12/14/23 12:47) Unknown simvastatin Allergy (Unknown, Verified 12/14/23 12:47) Unknown Tobacco use date assessed: 12/14/23 Fall risk assessment: No Falls in past year Last assessed Fall Risk: 12/14/23 Dental Screening Dental Screen Date: 12/14/23 Did you have a dental visit in the last 12 months?: Yes Did you have a dental problem in the last 6 months where you did not have access to dental care?: No Was dental information given to patient?: Patient has dentist HPI Cholesterol HPI Details 68-year-old obese female with hypertensi on hypercholesterolemia i mpaired glucose tolerance and generalized anxiety disorder last seen in 06/12/2023. Had a physical at that time. Patient is up-to-date with colonoscopy in June 2019 mammogram is up-to-date 03/2023 bone density was normal in September 11 Suraj Collins [id number] [facility] Medical History Left renal stone Well woman exam Vertigo Hypercholesterolemia Low back pain Postmenopausal bleeding Carpal tunnel syndrome Impaired glucose tolerance Anxiety and depression Hypertension Osteopenia Obesity Surgical History History of foot surgery History of tonsillectomy History of tubal ligation Family History Father No problems noted. Mother Skin cancer Breast cancer Paternal Uncle Myocardial infarction Brother No problems noted. Brother No problems noted. Sister No problems noted. Son No problems noted. Son No problems noted. Daughter No problems noted. Social History Household Members: Spouse Housing: Apartment Alcohol intake: never Patient Tobacco Use Status: Never used Tobacco e-Cigarette/Vaping Use: Never Used Second Hand Smoke Exposure: No service: No Current occupational status: unemployed Current occupational exposures/hazards: No Sexual orientation: Straight/Heterosexual Gender identity: Female Cognitive needs: No Hearing needs: No Vision needs: Yes Female Reproductive History Menstrual Age of Menarche: 13 Questionnaire PHQ-9 Over the last 2 weeks, how often have you been bothered by any of the following problems? 1. Little interest or pleasure in doing things: not at all 2. Feeling down, depressed, or hopeless: several days 3. Trouble falling or staying asleep, or sleeping too much: not at all 4. Feeling tired or having little energy: not at all 5. Poor appetite or overeating: not at all 6. Feeling bad about yourself - or that you are a failure or have let yourself or your family down: not at all 7. Trouble concentrating on things, such as reading the newspaper or watching te levision: not at all 8. Moving or speaking so slowly that other people could have noticed. Or the opposite - being so fidgety or restless that you have been moving around a lot more than usual: not at all 9. Thoughts that you would be better off or of hurting yourself in some way: not at all Total score: 1 Depression Screening Interpretation: Negative Depression Screening Done: Yes Source: Developed by Drs. Don Gallego, Pooja Carrasco, Antonio Wheatley and colleagues, with an educational kehinde from [employer]. Thrive Questionnaire Date Thrive assessed: 12/14/23 I am a: Patient What is your living situation today?: I have a steady place to live Within the past 12 months, did the food you bought not last and you didn't have the money to get more?: Never true Within the past 12 months, did you worry whether your food would run out before you got money to buy more?: Never true Do you have trouble paying for medicines?: No Do you have trouble getting transportation to medical appointments?: No Do you have trouble paying your heating and electricity bill?: No Do you have trouble taking care of your child, family member or friend?: No Do you have trouble with day-to-day activities such as bathing, preparing meals, shopping, managing finances, etc.?: No Are you currently unemployed and looking for a job?: No Are you interested in more education?: No Please select the resources that you would like help with: None Currently or been in a relationship where the following occur: No concerns reported THRIVE Score: 0 AUDIT C Alcohol Use Questionnaire (AUDIT-C) 1. How often do you have a drink containing alcohol?: Never 3. How often do you have six or more drinks on one occasion?: Never Total Score: 0 Score Reviewed/Action Taken: Yes (reviewed no action needed) ABBY-7 AMB Questionnaire ABBY-7 Date ABBY - 7 assessed: 12/14/23 Feeling nervous, anxious, or on edge: 1 = Several days Not being able to stop or control worryin = Several days Worrying too much about different things: 0 = Not at all Trouble relaxin = Not at all Being so restless that it is hard to sit still: 0 = Not at all Becoming easily annoyed or irritable: 0 = Not at all Feeling afraid as if something awful might happen: 0 = Not at all Total ABBY-7 score (0-4 normal; 5-9 mild; 10-14 moderate; 15-21 severe): 2 Source: Developed by Drs. Don Gallego, Pooja Carrasco, Antonio Wheatley and colleagues, with an educational kehinde from [employer]. Physical exam (Primary Care) Vital Signs: Last Vital Signs Pulse 74 12/14/23 12:46 BP 132/70 12/14/23 12:46 Pulse Ox 96 12/14/23 12:46 Oxygen Delivery Method Room Air 12/14/23 12:46 BMI result Body Mass Index 37.1 Tobacco/Smoking Status: Tobacco use Status Tobacco use date assessed 12/14/23 12/14/23 12:49 Patient Tobacco Use Status Never used Tobacco 12/14/23 12:49 e-Cigarette/Vaping Use Never Used 12/14/23 12:49 PHQ-9: PHQ-9 Score PHQ-9: Total score 1 12/14/23 12:49 Depression Screening Interpretation: Negative Thrive Assessment: Date of Thrive Assessment Date Thrive assessed 12/14/23 12/14/23 12:49 Currently or been in a relationship where the following occur: No concerns reported Const General: alert; No acute distress Eyes Conjunctivae: conjunctivae normal Resp Auscultation: clear to auscultation bilaterally Cardio Rate: regular rate Rhythm: regular rhythm GI Inspection: Yes normal to inspection Extrem General: Yes normal to inspection and No edema Assessment and Plan Assessment & Plan (1) Impaired glucose tolerance: Code(s): R73.02 - Impaired glucose tolerance (oral) Plan: Decrease the amount of carbohydrate intake, pasta, bread, rice and potatoes are all sugar and that is aside from all the sweet stuff, remember that fruits are good but they are Sweet also. (2) Obesity: Code(s): E66.9 - Obesity, unspecified Plan: Diet and exercise (3) Hypercholesterolemia: Code(s): E78.00 - Pure hypercholesterolemia, unspecified Plan: Avoid fried foods, chicken skin, eggs, butter margarine, pastries and meat. Be it pork or beef they have a lot of cholesterol on rosuvastatin LDL goal of less than 130 and triglyceride of less than 150 (4) Hypertension: Code(s): I10 - Essential (primary) hypertension Qualifiers: Hypertension type: essential hypertension Qualified Code(s): I10 - Essential (primary) hypertension Plan: Continue with blood pressure medication. Decrease salt intake and exercise on metoprolol 100 mg once a day (5) Generalized anxiety disorder: Code(s): F41.1 - Generalized anxiety disorder Plan: Continue with present medication Orders: Referrals Dermatology Referral L30.9 - Dermatitis, unspecified Medications: New cholecalciferol (vitamin D3) 25 mcg PO DAILY 90 caps 3RF Changed From rosuvastatin (Crestor) 20 mg PO DAILY 90 tabs 2RF To rosuvastatin 20 mg PO DAILY 90 tabs 2RF Refilled sertraline 100 mg PO DAILY 90 tabs 2RF E78.00 - Pure hypercholesterolemia, unspecified metoprolol succinate ER 100 mg PO DAILY 90 tabs 2RF I10 - Essential (primary) hypertension Coding Level of Care Code Est Pt Level 4 (75403) Diagnoses Impaired glucose tolerance R73.02 Obesity E66.9 Hypercholesterolemia E78.00 Essential hypertension I10 Hypertension type: essential hypertension Generalized anxiety disorder F41.1
== END 2023-12-14 13:35 | disposition home or self-care (01) ==
PROVIDERS: PCP Internal Medicine; Visit Provider Internal Medicine
DX: R73.02 Impaired glucose tolerance (oral) (principal); E66.9 Obesity, unspecified; Z68.37 Body mass index [BMI] 37.0-37.9, adult; E78.00 Pure hypercholesterolemia, unspecified; I10 Essential (primary) hypertension; F41.1 Generalized anxiety disorder
CPT/HCPCS: 99214

== ENCOUNTER 2024-02-25 13:28 | Outpatient (AMB) | payer OTHER, SELFPAY ==
[2024-02-25 13:44] VITALS: BP 134/76; BMI 37.8
--- NOTE | 2024-02-25 13:44 | MHC.OFFVIS ---
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 No complaints. Last Pap/HPV was negative in 01/12 Last Mammogram was BI-RADS 1 in 03/15 Last Colonoscopy was in 07/10, the recommendation was to repeat in 10 years Last DEXA scan was in 09/11 [facility] Medical History Left renal stone Well woman exam Vertigo Hypercholesterolemia Low back pain Postmenopausal bleeding Carpal tunnel syndrome Impaired glucose tolerance Anxiety and depression Hypertension Osteopenia Obesity Surgical History History of foot surgery History of tonsillectomy History of tubal ligation Family History Father No problems noted. Mother Skin cancer Breast cancer Paternal Uncle Myocardial infarction Brother No problems noted. Brother No problems noted. Sister No problems noted. Son No problems noted. Son No problems noted. Daughter No problems noted. Social History Household Members: Spouse Housing: Apartment Alcohol intake: never Patient Tobacco Use Status: Never used Tobacco e-Cigarette/Vaping Use: Never Used Second Hand Smoke Exposure: No service: No Current occupational status: unemployed Current occupational exposures/hazards: No Sexual orientation: Straight/Heterosexual Gender identity: Female Cognitive needs: No Hearing needs: No Vision needs: Yes Female Reproductive History Menstrual Age of Menarche: 13 control method: none Total pregnancies: 4 Full term: 3 Number of Living Children: 3 Ab spontaneous: 1 Date of last pap smear: 12/30/21 History of abnormal pap smear: No History of STI: No Date of Mammogram: 03/19/23 History of abnormal mammogram: No Review of Systems Const All systems reviewed & are unremarkable except as noted in HPI and below Card Reports as per HPI Resp Reports as per HPI GI Reports as per HPI and Reports no additional complaints Reports as per HPI Physical Exam Vital Signs: Last Vital Signs BP 134/76 02/25/24 13:44 BMI result Body Mass Index 37.8 Const General: cooperative, healthy appearing and comfortable Chest Chest palpation & inspection: normal inspection of the chest and normal palpation of entire chest wall Breast/axilla inspection: normal inspection of the breasts and normal inspection of the axillae Breast/axilla palpation: normal palpation of the breasts, normal palpation of the axillae and no axillary lymphadenopathy Resp Effort & Inspection: normal respiratory effort Auscultation: clear to auscultation bilaterally Percussion: percussion normal Cardio Palpation: normal PMI Rate: regular rate Rhythm: regular rhythm Heart sounds: no murmurs and no rubs Peripheral pulses: Peripheral pulses 2+ throughout GI Inspection: Yes normal to inspection Palpation (GI): Soft to palpation, nontender, no guarding, not rigid and No hepatosplenomegaly present Percussion: Yes normal to percussion Auscultation: normal bowel sounds Rectal Exam - Female: deferred General: Yes bladder normal to palpation External Female Exam: No lesion Speculum Exam - Vagina: normal appearance of the vagina, normal palpation, normal vaginal discharge and not erythematous Speculum Exam - Cervix: normal appearance of the cervix and normal palpation Bimanual exam- vagina & uterus: normal bimanual exam, normal palpation, uterine size normal, bladder normal to palpation, consistency normal and normal palpation Bimanual Exam- Adnexa, other: normal adnexae, no masses and no tenderness Assessment & Plan Assessment & Plan (1) Well woman exam: Code(s): Z01.419 - Encounter for gynecological examination (general) (routine) without abnormal findings Category: Medical Plan: Co testing not indicated since the patient 's age is above 65 with no history of abnormal Pap smears last 25 years. Counseled the patient about the recommended dietary allowance of 1200 mg of Calcium & 800 IU of vitamin D. Mammogram ordered. DEXA scan ordered. The patient was instructed to perform monthly self-breast exams and to schedule a 2 week DEXA scan follow-up appointment and an annual exam in a year; All questions answered and the patient verbalized understanding. Orders: Orders XR DEXA axial skeleton Today Z78.0 - Asymptomatic menopausal state MM tomosynthesis screening BI Today Z12.31 - Encounter for screening mammogram for malignant neoplasm of breast Coding Level of Care Code Est Pt Prev Care >65y(54611) Diagnoses Well woman exam Z01.419
== END 2024-02-25 14:09 | disposition home or self-care (01) ==
LOC: HO.HWS 13:28
PROVIDERS: PCP Internal Medicine; Visit Provider Obstetrics & Gynecology
DX: Z01.419 Encounter for gynecological examination (general) (routine) without abnormal findings (principal)
CPT/HCPCS: 99397

== ENCOUNTER → 2024-02-25 13:28 | Outpatient (BNVA) | payer OTHER, SELFPAY | PROVIDERS: PCP Internal Medicine; Visit Provider Obstetrics & Gynecology | DX: Z01.419 Encounter for gynecological examination (general) (routine) without abnormal findings (principal); Z78.0 Asymptomatic menopausal state | CPT/HCPCS: 99397 ==

== ENCOUNTER 2024-02-28 11:26 | Outpatient (AMB) | payer OTHER, SELFPAY ==
--- NOTE | 2024-02-28 11:34 | AM.OFFVISNUR ---
Intake Visit Reasons: Flu shot Allergies atorvastatin [Lipitor] Allergy (Unknown, Verified 02/25/24 13:44) Unknown lisinopril Allergy (Unknown, Verified 02/25/24 13:44) Unknown simvastatin Allergy (Unknown, Verified 02/25/24 13:44) Unknown Office Procedures Flu Questionnaire Does the patient have a severe egg allergy?: No Does the patient have severe life threatening allergies?: No Does the patient have a fever or illness today?: No Has the patient ever had Guillain-Warren Syndrome?: No Has the patient ever had any past reaction to a flu shot?: No Assessment & Plan Assessment & Plan Orders: Orders Influenza [id number] Immunization Today Z23 - Encounter for immunization Medications: New Fluarix Triv [id number] (PF) (flu vacc [id number] 6mos up(PF)) 0.5 mL IM ONCE 0.5 mL 0RF NS Z23 - Encounter for immunization
== END 2024-02-28 11:36 | disposition home or self-care (01) ==
LOC: HO.HMCH 11:26
PROVIDERS: PCP Internal Medicine; Visit Provider Internal Medicine
DX: Z23 Encounter for immunization (principal)

== ENCOUNTER → 2024-02-28 11:26 | Outpatient (BNVA) | payer OTHER, SELFPAY | PROVIDERS: PCP Internal Medicine; Visit Provider Internal Medicine | DX: Z23 Encounter for immunization (principal) | CPT/HCPCS: 90471; 90656 ==

== ENCOUNTER 2024-03-24 11:15 | Outpatient (REF) | payer OTHER, SELFPAY ==
--- NOTE | ~2024-03-24 | MM_ITS ---
EXAMINATION: MM SCREENING DIGITAL BREAST TOMOSYNTHESIS, BILATERAL CLINICAL INFORMATION: Screening. Asymptomatic. COMPARISON: Mammography: Comparison is made with available priors TECHNIQUE: Digital breast mammography with tomosynthesis is performed in both the craniocaudal and mediolateral oblique views along with computer-aided detection (CAD). FINDINGS: There are scattered areas of fibroglandular density (ACR BI-RADS breast composition Category b). There are no significant masses, abnormal calcifications, or other abnormalities. MM/MM tomosynthesis screening BI IMPRESSION: No mammographic evidence of malignancy. ASSESSMENT: BI-RADS BI-RADS 1 - Negative RECOMMENDATION: Routine annual mammography screening. 1 year F/U This examination should not preclude the clinical evaluation of a suspicious palpable abnormality. This patient's information was entered into a reminder system with a target due date for their next mammogram. Electronically signed by: Mona Young DO 03/28/2024 01:57 PM [facility]
== END 2024-03-24 11:16 | disposition home or self-care (01) ==
LOC: HO.MAMMO 11:15
PROVIDERS: PCP Internal Medicine; Referring Provider Obstetrics & Gynecology; Visit Provider Internal Medicine
DX: Z12.31 Encounter for screening mammogram for malignant neoplasm of breast (principal)
CPT/HCPCS: 77063; 77067

== ENCOUNTER → 2024-03-24 11:45 | Outpatient (BNV) | payer OTHER, SELFPAY | PROVIDERS: PCP Internal Medicine; Referring Provider Obstetrics & Gynecology; Visit Provider Internal Medicine | DX: Z12.31 Encounter for screening mammogram for malignant neoplasm of breast (principal) | CPT/HCPCS: 77063; 77067 ==

== ENCOUNTER 2024-04-02 13:32 | Outpatient (REF) | payer OTHER, SELFPAY ==
--- NOTE | ~2024-04-02 | MM_ITS ---
EXAMINATION: BONE DENSITOMETRY CLINICAL INDICATION: Asymptomatic menopausal state. COMPARISON: Previous BD dated 09/14/2021 and baseline BD dated 08/24/2011. TECHNIQUE: Using a Longaccess DXA System (software version: 13.1) manufactured by [employer], dual-energy x-ray absorptiometry was performed of the lumbar spine and left hip. The images are of good technical quality. Summary results are attached. FINDINGS: LEFT FEMUR, NECK: Current: BMD 1.020 g/cm2, Z-score 0.6, T-score -0.1, normal. Prior: BMD 0.957 g/cm2. Baseline: BMD 1.092 g/cm2. LEFT FEMUR, TOTAL: Current: BMD 1.039 g/cm2, Z-score 0.7, T-score 0.2, normal, 5.5% increase from previous, 8.4% decrease from baseline (<5% change is not significant). Prior: BMD 0.985 g/cm2. Baseline: BMD 1.134 g/cm2. AP SPINE L1-L4: Current: BMD 1.091 g/cm2, Z-score -0.3, T-score -0.7, normal, 0.0% increase from previous, 2.9% increase from baseline (<5% change is not significant). Prior: BMD 1.091 g/cm2. Baseline: BMD 1.060 g/cm2. IDENTIFIED RISK FACTORS: Menopause. HISTORY OF FRACTURE: None listed. MEDICATIONS: Vitamin D. MM/XR DEXA axial skeleton IMPRESSION: 1. DIAGNOSIS: Normal bone density based on the lowest T-score value of -0.7 in the lumbar spine applying World Health Organization criteria. 2. 10-YEAR FRACTURE RISK PREDICTION, FRAX: According to the guidelines, FRAX calculation should only be performed on patients in the osteopenia bone density category. Therefore, FRAX was not performed on this patient. 3. Treatment Recommendations: NOF guidelines recommend consideration for treatment in postmenopausal women and men age 50 and older presenting with the following: -A hip or vertebral (clinical or morphometric) fracture. -T-score less than or equal to -2.5 at the femoral neck or spine after appropriate evaluation to exclude secondary causes. -Low bone mass at the hip or spine and a 10-year fracture probability by FRAX of greater than or equal to 3% for hip fracture or greater than or equal to 20% for major osteoporotic fracture based on the [place] adapted WHO algorithm. 4. Other Recommendations: All treatment decisions require clinical judgment and consideration of individual patient factors, including patient preferences, comorbidities, previous drug use, risk factors not captured in the FRAX model (e.g. frailty, falls, vitamin D deficiency, increased bone turnover, interval significant decline in bone density) and possible under or overestimation of fracture risk by FRAX. FUTURE SCAN RECOMMENDATION: People with diagnosed cases of osteoporosis or at high risk for fracture should have regular bone mineral density tests. For patients eligible for Medicare, routine testing is allowed once every 2 years. The testing frequency can be increased to one year for patients who have rapidly progressing disease, those who are receiving or discontinuing medical therapy to restore bone mass, or have additional risk factors. Electronically signed by: Camila Ansari MD 04/03/2024 09:02 AM [facility]
== END 2024-04-02 13:33 | disposition home or self-care (01) ==
LOC: HO.MAMMO 13:32
PROVIDERS: PCP Internal Medicine; Visit Provider Obstetrics & Gynecology
DX: Z13.820 Encounter for screening for osteoporosis (principal); Z78.0 Asymptomatic menopausal state
CPT/HCPCS: 77080

== ENCOUNTER 2024-04-30 09:49 | Emergency (ER) | payer OTHER, SELFPAY ==
[2024-04-30 10:11] VITALS: BP 153/77; PULSE 70; RESP 18; TEMP 36.7; O2SAT 96; BMI 39.8
--- NOTE | 2024-04-30 10:53 | ED_ITS ---
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 States that she tripped while walking up stairs in [place] on April 25 or , causing this injury to her knee. She denies head strike, loss of consciousness. She is not anticoagulated. She is concerned that the area appears infected. Denies any decreased range of motion to her knee. Denies any fevers, chills, body aches. MD complaint: knee injury Onset (ago): day(s) Treatments prior to arrival: none Related Data Home Medications ?Medication ?Instructions ?Recorded ?Confirmed ascorbate calcium (vitamin C) 500 1 g PO Q6H 01/08/23 06/15/23 mg tablet magnesium 250 mg tablet 250 mg PO DAILY 06/15/23 06/15/23 Previous Rx's ?Medication ?Instructions ?Recorded acetaminophen 500 mg tablet 1,000 mg (2 x 500 mg) PO Q6H PRN 05/03/21 fever #90 tabs meclizine 25 mg tablet 25 mg PO TID PRN dizziness #30 tabs 05/02/22 triamcinolone acetonide 0.5 % 1 appl topical BID 14 days #30 01/08/23 topical cream grams clotrimazole 1 % topical cream 1 appl topical BID #45 grams 08/08/23 cholecalciferol (vitamin D3) 25 25 mcg PO DAILY #90 caps 12/14/23 mcg (1,000 unit) capsule metoprolol succinate 100 mg 100 mg PO DAILY #90 tabs 12/14/23 tablet,extended release 24 hr rosuvastatin 20 mg tablet 20 mg PO DAILY #90 tabs 12/14/23 sertraline 100 mg tablet 100 mg PO DAILY #90 tabs 12/14/23 cephalexin 500 mg capsule 500 mg PO QID #28 caps 04/30/24 mupirocin 2 % topical ointment 1 appl topical BID 7 days #15 grams 04/30/24 Allergies Allergy/AdvReac Type Severity Reaction Status Date / Time atorvastatin [Lipitor] Allergy Unknown Unknown Verified 04/30/24 10:13 lisinopril Allergy Unknown Unknown Verified 04/30/24 10:13 simvastatin Allergy Unknown Unknown Verified 04/30/24 10:13 Review of Systems 2 Review of Systems: As per HPI Yes all other systems are reviewed and are negative Constitutional: Constitutional: Reports as per HPI [facility]LY [facility] Past Medical History Medical History Left renal stone Well woman exam Vertigo Hypercholesterolemia Low back pain Postmenopausal bleeding Carpal tunnel syndrome Impaired glucose tolerance Anxiety and depression Hypertension Osteopenia Obesity Surgical History History of foot surgery History of tonsillectomy History of tubal ligation Family History Family History Father No problems noted. Mother Skin cancer Breast cancer Paternal Uncle Myocardial infarction Brother No problems noted. Brother No problems noted. Sister No problems noted. Son No problems noted. Son No problems noted. Daughter No problems noted. Social History Social History Household Members: Spouse Housing: Apartment Alcohol intake: never Patient Tobacco Use Status: Never used Tobacco e-Cigarette/Vaping Use: Never Used Second Hand Smoke Exposure: No Advance Directives: No Advance Directives Information Provided: Yes Do you have a plan to hurt others: No Plan service: No Current occupational status: unemployed Current occupational exposures/hazards: No Sexual orientation: Straight/Heterosexual Gender identity: Female Cognitive needs: No Hearing needs: No Vision needs: Yes Physical Exam ED Vital Signs: Vital Signs - 24 hr 04/30/24 10:11 Temperature 98.1 F Pulse Rate 70 Respiratory Rate 18 Blood Pressure 153/77 H Pulse Oximetry 96 Oxygen Delivery Method Room Air BMI result Body Mass Index 39.8 Vital signs have been reviewed and appear to be correct. Blood pressure elevated. Heart rate normal. Respiratory rate normal. Temperature normal. Oxygen saturation normal. Const General: cooperative, healthy appearing and no acute distress Orientation/consciousness: oriented to person, oriented to place, oriented to time and patient oriented x3 Limitations: no limitations HENMT Head: Yes normocephalic and Yes atraumatic Ears: external ears normal General nose exam: Normal external nose present Face and sinus: Yes face symmetric Mouth: oropharynx normal and moist mucous membranes Throat: Yes uvula midline Eyes Pupils: Equal, round and reactive pupils present Neck Neck: Yes normal visual inspection and Yes supple Resp Effort & Inspection: normal respiratory effort and able to speak in complete sentences Auscultation: clear to auscultation bilaterally Cardio Rate: regular rate Rhythm: regular rhythm Heart sounds: S1 normal heart sound present and S2 normal heart sound present GI Palpation (GI): Soft to palpation and nontender Auscultation: normoactive bowel sounds General: Yes no CVA tenderness Back/Spine/Pelvis Back: no CVA tenderness Skin General skin exam: elasticity normal and turgor normal Neuro General: oriented to person, oriented to place, oriented to time, patient oriented x3, gait normal, tone normal, moves all extremities, Normal light touch and pain sensation, no focal motor deficits, CN's II-XI intact bilaterally and deep tendon reflexes 2+ bilaterally Cranial nerves: Yes Equal, round and reactive pupils present Cognition (Neuro): normal cognition Motor exam (neuro): 5/5 motor strength present throughout, Pronator motor function not present, no tremor noted, no asterixis, Motor fasciculations not present, Normal motor muscle tone present throughout and Motor abnormalities not present Sensory Exam: Normal double simultaneous stimulation for sensation Extrem General: Yes full ROM, Yes no pedal edema and Yes no calf tenderness Left lower extremity: knee Details: tenderness Location: of the tibial tuberosity (in area of abrasion), normal ROM, knee ligament exam normal and abrasion proximal lower leg anterior Details: single; no swelling Upper/lower leg/hip images: 2 1. abrasion with surrounding erythema, warmth, no drainage Psych Mental Status: mental status grossly normal Affect: normal affect Thought process: Normal thought process present Medical Decision Making Medical Decision Making MDM Narrative: Patient is a 68-year-old Kiswahili-speaking female presenting to the emergency department with complaint of abrasion to left knee. On exam patient is awake, A+Ox3, VS WNL, afebrile, normal neurological exam without focal deficits, physical exam findings as above. Given reported symptoms and physical exam findings, initial differential includes but is not limited to abrasion, contusion, cellulitis. Do not suspect septic joint as patient has full range of motion, is afebrile. Will send prescription for course of Keflex as well as mupirocin ointment. Advised patient to monitor area daily and return for worsening symptoms. Follow up with PCP as needed. Patient verbalized understanding of and agreement with plan. In-person dupligraph operator was utilized for all interactions, assessments, and discussions. In-person dupligraph operator was utilized for all interactions, assessments, and discussions. Differential Diagnosis Differential Diagnoses: The differential diagnosis associated with the presentation includes as per [facility] External Record Review External record reviewed: Inpatient record, Office record and Outpatient record Prescription Management I considered prescription management with: Antibiotic Discharge Plan Discharge Clinical Impression: Cellulitis of knee, left Patient Disposition: Home, Self-Care Instructions: Cephalexin (By mouth), Mupirocin (On the skin), Cellulitis (DC) Additional Instructions: You have been evaluated in the emergency department today for skin infection, also known as cellulitis. If the area of inflammation was outlined today in the ER, please return to the ER immediately if the area of redness increases beyond the border. Please take your prescribed antibiotics as directed for the full course of the medication. You can use Tylenol or ibuprofen per package instructions every 6 hours as needed for pain. If necessary, you can alternate these medications so that you can take one medication every 3 hours. For instance, at noon take ibuprofen, then at 3:00 p.m. take Tylenol, then at 6:00 p.m. take ibuprofen. Please schedule an appointment for follow-up with your primary care physician as soon as possible. Return to the emergency department if you experience recurrent vomiting, fevers greater than 100.4? F, increasing area of redness, warmth around the area, foul-smelling discharge from the area, increased tenderness around the area, or any other concerning symptoms. Prescriptions: New cephalexin 500 mg capsule 500 mg PO QID Qty: 28 0RF mupirocin 2 % ointment 1 appl topical BID 7 Days Qty: 15 0RF No Action meclizine 25 mg tablet 25 mg PO TID PRN (Reason: dizziness) Qty: 30 0RF clotrimazole 1 % cream 1 appl topical BID Qty: 45 0RF magnesium 250 mg tablet 250 mg PO DAILY acetaminophen 500 mg tablet 1,000 mg PO Q6H PRN (Reason: fever) Qty: 90 0RF ascorbate calcium (vitamin C) 500 mg tablet 1 g PO Q6H triamcinolone acetonide 0.5 % cream 1 appl topical BID 14 Days Qty: 30 0RF metoprolol succinate 100 mg tablet extended release 24 hr 100 mg PO DAILY Qty: 90 2RF sertraline 100 mg tablet 100 mg PO DAILY Qty: 90 2RF rosuvastatin 20 mg tablet 20 mg PO DAILY Qty: 90 2RF cholecalciferol (vitamin D3) 25 mcg (1,000 unit) capsule 25 mcg PO DAILY Qty: 90 3RF Print Language: Kiswahili
[2024-04-30 13:56] VITALS: BP 168/63; PULSE 70; RESP 20; TEMP 36.5; O2SAT 98
== END 2024-04-30 13:58 | disposition home or self-care (01) ==
PROVIDERS: Emergency Provider Student in an Organized Health Care Education/Training Program
DX: L03.116 Cellulitis of left lower limb (principal); Z79.899 Other long term (current) drug therapy
CPT/HCPCS: 99282; 99283

== ENCOUNTER 2024-05-01 12:59 | Outpatient (AMB) | payer OTHER, SELFPAY ==
--- NOTE | 2024-05-01 13:18 | A.OFFPC_ITS ---
Vital Signs 05/01/24 13:20 Height 5 ft 3 in Weight 222 lb BMI 39.3 BP 132/70 Blood Pressure Location Lt brachial Position Sitting Pulse 60 Pulse Source Pulse Oximeter Pulse Oximetry (%) 97 Oxygen Delivery Method Room Air Intake Visit Reasons: [facility] [place] Candy Dipper Hand Required: Yes Candy Dipper Hand Language: Frisian Accompanied by: Self / Same As Patient Allergies atorvastatin [Lipitor] Allergy (Unknown, Verified 05/01/24 13:21) Unknown lisinopril Allergy (Unknown, Verified 05/01/24 13:21) Unknown simvastatin Allergy (Unknown, Verified 05/01/24 13:21) Unknown Tobacco use date assessed: 05/01/24 Fall risk assessment: 1 Fall in past year Last assessed Fall Risk: 05/01/24 Dental Screening Dental Screen Date: 05/01/24 Did you have a dental visit in the last 12 months?: No Did you have a dental problem in the last 6 months where you did not have access to dental care?: No Was dental information given to patient?: Patient has dentist HPI [facility] [place] 04[place] fall HPI Details 68-year-old female with past medical his tory of hypertension, hypercholesterolemia, impaired glucose tolerance and generalized anxiety disorder last seen 11/[address] Stoddard coming in for hospital discharge follow up.?In review of the notes patient was seen in [facility] [place] [facility] 04/30/2024 after a fall days earlier and resulting in an abrasion.?Low suspicion for septic joint but treated cellulitis with Keflex and mupirocin ointment. 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 Today she tells us the pharmacy told her she should avoid taking the cephalexin as she has not allergy to this medication. Patient denies allergy to penicillins or to Keflex or any other cephalosporins. She states when she had her fall she was not dizzy or lightheaded she simply tripped and fell down a few stairs onto her left knee. She had a subsequent abrasion on the left knee that became infected and was given the antibiotics. She has used the topical antibiotic however has not begun taking the Keflex. FORMERLY [facility], [facility]1983 Medical History Left renal stone Well woman exam Vertigo Hypercholesterolemia Low back pain Postmenopausal bleeding Carpal tunnel syndrome Impaired glucose tolerance Anxiety and depression Hypertension Osteopenia Obesity Surgical History History of foot surgery History of tonsillectomy History of tubal ligation Family History Father No problems noted. Mother Skin cancer Breast cancer Paternal Uncle Myocardial infarction Brother No problems noted. Brother No problems noted. Sister No problems noted. Son No problems noted. Son No problems noted. Daughter No problems noted. Social History Household Members: Spouse Housing: Apartment Alcohol intake: never Patient Tobacco Use Status: Never used Tobacco e-Cigarette/Vaping Use: Never Used Second Hand Smoke Exposure: No service: No Current occupational status: unemployed Current occupational exposures/hazards: No Sexual orientation: Straight/Heterosexual Gender identity: Female Cognitive needs: No Hearing needs: No Vision needs: Yes Female Reproductive History Menstrual Age of Menarche: 13 Questionnaire PHQ-9 Over the last 2 weeks, how often have you been bothered by any of the following problems? 1. Little interest or pleasure in doing things: not at all 2. Feeling down, depressed, or hopeless: not at all 3. Trouble falling or staying asleep, or sleeping too much: not at all 4. Feeling tired or having little energy: not at all 5. Poor appetite or overeating: not at all 6. Feeling bad about yourself - or that you are a failure or have let yourself or your family down: not at all 7. Trouble concentrating on things, such as reading the newspaper or watching television: not at all 8. Moving or speaking so slowly that other people could have noticed. Or the opposite - being so fidgety or restless that you have been moving around a lot more than usual: not at all 9. Thoughts that you would be better off or of hurting yourself in some way: not at all Total score: 0 Source: Developed by Drs. Don Gallego, Pooja Carrasco, Antonio Wheatley and colleagues, with an educational kehinde from [employer]. Thrive Questionnaire Date Thrive assessed: 05/01/24 I am a: Patient What is your living situation today?: I have a steady place to live Within the past 12 months, did the food you bought not last and you didn't have the money to get more?: Never true Within the past 12 months, did you worry whether your food would run out before you got money to buy more?: Never true Do you have trouble paying for medicines?: No Do you have trouble getting transportation to medical appointments?: No Do you have trouble paying your heating and electricity bill?: No Do you have trouble taking care of your child, family member or friend?: No Do you have trouble with day-to-day activities such as bathing, preparing meals, shopping, managing finances, etc.?: No Are you currently unemployed and looking for a job?: No Are you interested in more education?: No Please select the resources that you would like help with: None Currently or been in a relationship where the following occur: No concerns reported THRIVE Score: 0 AUDIT C Alcohol Use Questionnaire (AUDIT-C) 1. How often do you have a drink containing alcohol?: Never Total Score: 0 ABBY-7 AMB Questionnaire ABBY-7 Date ABBY - 7 assessed: 05/01/24 Feeling nervous, anxious, or on edge: 0 = Not at all Not being able to stop or control worryin = Not at all Worrying too much about different things: 0 = Not at all Trouble relaxin = Not at all Being so restless that it is hard to sit still: 0 = Not at all Becoming easily annoyed or irritable: 0 = Not at all Feeling afraid as if something awful might happen: 0 = Not at all Total ABBY-7 score (0-4 normal; 5-9 mild; 10-14 moderate; 15-21 severe): 0 Source: Developed by Drs. Don Gallego, Pooja Carrasco, Antonio Wheatley and colleagues, with an educational kehinde from [employer]. Review of Systems Const Denies body aches, Denies chills, Denies fever(s) and Denies poor appetite Eyes Reports no additional complaints ENT Reports no additional complaints Card Denies chest pain, Denies syncope, Denies lightheadedness and Denies dyspnea Resp Denies cough and Denies dyspnea GI Reports no additional complaints Reports no additional complaints Musc Reports as per HPI and Denies abnormal gait Skin/Breast Reports system reviewed and no additional complaints, except as documented Neuro Denies abnormal gait and Denies syncope Psych Reports no additional complaints Physical exam (Primary Care) Vital Signs: Last Vital Signs Pulse 60 05/01/24 13:20 BP 132/70 05/01/24 13:20 Pulse Ox 97 05/01/24 13:20 Oxygen Delivery Method Room Air 05/01/24 13:20 BMI result Body Mass Index 39.3 Tobacco/Smoking Status: Tobacco use Status Tobacco use date assessed 05/01/24 05/01/24 13:24 Patient Tobacco Use Status Never used Tobacco 05/01/24 13:19 e-Cigarette/Vaping Use Never Used 05/01/24 13:19 PHQ-9: PHQ-9 Score PHQ-9: Total score 0 05/01/24 13:26 Thrive Assessment: Date of Thrive Assessment Date Thrive assessed 05/01/24 05/01/24 13:24 Currently or been in a relationship where the following occur: No concerns reported Const General: cooperative, healthy appearing, comfortable and no acute distress Orientation/consciousness: patient oriented x3 HENMT Head: Yes normocephalic Ears: hearing grossly normal bilaterally General nose exam: Normal external nose present Eyes General: appearance normal, both eyes and all related structures Conjunctivae: conjunctivae normal Neck Neck: Yes full ROM and Yes no lymphadenopathy Resp Effort & Inspection: normal respiratory effort Auscultation: clear to auscultation bilaterally, no crackles, no rales, no rhonchi and no wheezes Cardio Rate: regular rate Rhythm: regular rhythm Skin Other: Abrasion over left knee with routine healing and scabbing. Abrasion has surrounding erythema and warmth without edema of the left lower extremity. No calf swelling, redness or warmth. Neuro General: patient oriented x3 Gait exam (Neuro): Normal gait present Extrem General: Yes normal to inspection, Yes full ROM and No edema Psych Affect: normal affect Attitude: cooperative Insight: Good insight present (Psych) Judgement: Good judgement present (Psych) Coding Level of Care Code Est Pt Level 3 (49659) Diagnoses Essential hypertension I10 Hypertension type: essential hypertension Obesity E66.9 Cellulitis L03.90 Assessment & Plan Assessment & Plan (1) Hypertension: Code(s): I10 - Essential (primary) hypertension Category: Medical Qualifiers: Hypertension type: essential hypertension Qualified Code(s): I10 - Essential (primary) hypertension Plan: Continue on current blood pressure medication. Avoid salt intake and encourage healthy diet and regular exercise. (2) Obesity: Code(s): E66.9 - Obesity, unspecified Category: Medical Plan: Healthy diet and regular exercise is encouraged. (3) Cellulitis: Code(s): L03.90 - Cellulitis, unspecified Category: Medical Plan: On exam today patient having abrasions surrounded by erythema consistent with cellulitis presentation. Advised patient to continue using mupirocin ointment and leave the area open and do not cover with bandage. Did advise patient she may cover the wound at night to avoid getting the cream on the sheets but to remove the bandage promptly after. Given that patient has no history of allergy to penicillin or cephalosporins no indication to hold Keflex at this time. Advised patient to take this medication with plenty of food and water as it may cause stomach upset. Reviewed with patient symptoms of allergic reaction and when to present for re-evaluation. Also reviewed with patient red flag symptoms of cellulitis and when to present to re-evaluation. Plan This note was constructed using voice recognition software. While every effort has been made to ensure accuracy and patching machine operator, still areas may have been included sometimes these areas may affect the content or meeting of the given symptoms. Total time spent caring for the patient today was 20 minutes. This includes time spent before the visit reviewing the chart, time spent during the visit, and time spent after the visit and documentation.
[2024-05-01 13:20] VITALS: BP 132/70; PULSE 60; O2SAT 97; BMI 39.3
== END 2024-05-01 14:00 | disposition home or self-care (01) ==
DX: I10 Essential (primary) hypertension (principal); E66.9 Obesity, unspecified; L03.90 Cellulitis, unspecified; Z68.39 Body mass index [BMI] 39.0-39.9, adult

== ENCOUNTER → 2024-05-01 12:59 | Outpatient (BNVA) | payer OTHER, SELFPAY | DX: I10 Essential (primary) hypertension (principal); E66.9 Obesity, unspecified; L03.90 Cellulitis, unspecified | CPT/HCPCS: 99212 ==

== ENCOUNTER 2024-05-27 08:55 | Outpatient (AMB) | payer OTHER, SELFPAY ==
--- NOTE | 2024-05-27 09:07 | A.OFFVIS_ITS ---
Intake Visit Reasons: DEXA follow up Food Service Sales Representatives Required: Yes Food Service Sales Representatives Language: Event Marketing Assistant Services: Food Service Sales Representatives Present (Covacsis) Food Service Sales Representatives Name: Jayne [phone] Information Interpreted: clinical only Entertainment Musician: Entertainment Musician Present (Bonny) Accompanied by: Self / Same As Patient Allergies atorvastatin [Lipitor] Allergy (Unknown, Verified 05/27/24 09:09) Unknown lisinopril Allergy (Unknown, Verified 05/27/24 09:09) Unknown simvastatin Allergy (Unknown, Verified 05/27/24 09:09) Unknown HPI Comments Details: The patient is presenting for follow up regarding DEXA scan results. T score @ spine and femoral Neck respectively were=-0.7 /-0.1 and 10 year FRAX risk was not computed [facility] Medical History (Updated 05/27/24 @ 09:14 by Marcelino Ulloa MD) Left renal stone Well woman exam Vertigo Hypercholesterolemia Low back pain Postmenopausal bleeding Carpal tunnel syndrome Impaired glucose tolerance Anxiety and depression Hypertension Obesity Surgical History History of foot surgery History of tonsillectomy History of tubal ligation Family History Father No problems noted. Mother Skin cancer Breast cancer Paternal Uncle Myocardial infarction Brother No problems noted. Brother No problems noted. Sister No problems noted. Son No problems noted. Son No problems noted. Daughter No problems noted. Social History Household Members: Spouse Housing: Apartment Alcohol intake: never Patient Tobacco Use Status: Never used Tobacco e-Cigarette/Vaping Use: Never Used Second Hand Smoke Exposure: No service: No Current occupational status: unemployed Current occupational exposures/hazards: No Sexual orientation: Straight/Heterosexual Gender identity: Female Cognitive needs: No Hearing needs: No Vision needs: Yes Female Reproductive History Menstrual Age of Menarche: 13 Review of Systems Const All systems reviewed & are unremarkable except as noted in HPI and below Reports as per HPI and Reports no additional complaints GI Reports no additional complaints Reports no additional complaints Assessment & Plan Assessment & Plan (1) Osteopenia: Code(s): M85.80 - Other specified disorders of bone density and structure, unspecified site Category: Medical Plan: Discussed with the patient the DEXA results and FRAX risk. FRAX risk and T score showed no evidence of osteoporosis. Discussed with the patient all the options for osteoporosis prevention including lifestyle modifications including Ca+D supplements 1200 mg po qd/800 MIU, Weight bearing exercises and proteine supplements. The patient verbalized understanding and agreed plan will repeat DEXA in 2 years. Coding Level of Care Code Est Pt Level 3 (34587) Diagnoses Osteopenia M85.80
== END 2024-05-27 09:26 | disposition home or self-care (01) ==
LOC: HO.HWS 08:55
PROVIDERS: PCP Internal Medicine; Visit Provider Obstetrics & Gynecology
DX: M85.80 Other specified disorders of bone density and structure, unspecified site (principal)
CPT/HCPCS: 99213

== ENCOUNTER → 2024-05-27 08:55 | Outpatient (BNVA) | payer OTHER, SELFPAY | PROVIDERS: PCP Internal Medicine; Visit Provider Obstetrics & Gynecology | DX: M85.80 Other specified disorders of bone density and structure, unspecified site (principal) | CPT/HCPCS: 99212 ==

== ENCOUNTER 2024-08-08 14:30 | Outpatient (AMB) | payer OTHER, SELFPAY ==
--- NOTE | 2024-08-08 14:40 | MHC.PC.OV ---
Vital Signs 08/08/24 14:42 Height 5 ft 3 in Weight 220 lb BMI 39.0 BP 120/66 Blood Pressure Location Lt brachial Position Sitting Pulse 64 Pulse Source Pulse Oximeter Temp 97.3 F Temp Source Temporal Artery Scan Pulse Oximetry (%) 98 Oxygen Delivery Method Room Air Intake Visit Reasons: ANNUAL Intake Note: Patient is here today for a physical. Insurance Verification Clerk Required: Yes Insurance Verification Clerk Language: Gun Numberer Name: Greta ([id number]) Information Interpreted: non-clinical & clinical Review Scheduling Coordinator: Not Required per policy Accompanied by: Self / Same As Patient Allergies atorvastatin [Lipitor] Allergy (Unknown, Verified 08/08/24 14:41) Unknown lisinopril Allergy (Unknown, Verified 08/08/24 14:41) Unknown simvastatin Allergy (Unknown, Verified 08/08/24 14:41) Unknown Medication List - Last Reconciled 08/08/24 by Kenzie Stoddard MD acetaminophen 1,000 mg (2 x 500 mg) PO Q6H PRN ascorbate calcium (vitamin C) 1 g PO .QD cholecalciferol (vitamin D3) 25 mcg PO DAILY clotrimazole 1% 1 appl topical BID cyanocobalamin (vitamin B-12) 1,000 mcg PO DAILY meclizine 25 mg PO TID PRN metoprolol succinate ER 100 mg PO DAILY rosuvastatin 20 mg PO DAILY sertraline 100 mg PO DAILY triamcinolone acetonide 0.5% 1 appl topical BID 14 days vit B complex 100 combo no.2 ER (B-100 Complex ER) tabs PO Tobacco use date assessed: 08/08/24 Fall risk assessment: No Falls in past year Last assessed Fall Risk: 08/08/24 Dental Screening Dental Screen Date: 05/01/24 HPI ANNUAL HPI Details [email or web address] [id number] [facility] Medical History (Updated 05/27/24 @ 09:14 by Marcelino Ulloa MD) Left renal stone Well woman exam Vertigo Hypercholesterolemia Low back pain Postmenopausal bleeding Carpal tunnel syndrome Impaired glucose tolerance Anxiety and depression Hypertension Obesity Surgical History History of foot surgery History of tonsillectomy History of tubal ligation Family History Father No problems noted. Mother Skin cancer Breast cancer Paternal Uncle Myocardial infarction Brother No problems noted. Brother No problems noted. Sister No problems noted. Son No problems noted. Son No problems noted. Daughter No problems noted. Social History Household Members: Spouse Housing: Apartment Alcohol intake: never Patient Tobacco Use Status: Never used Tobacco e-Cigarette/Vaping Use: Never Used Second Hand Smoke Exposure: No service: No Current occupational status: unemployed Current occupational exposures/hazards: No Sexual orientation: Straight/Heterosexual Gender identity: Female Cognitive needs: No Hearing needs: No Vision needs: Yes Female Reproductive History Menstrual Age of Menarche: 13 Questionnaire PHQ-9 Over the last 2 weeks, how often have you been bothered by any of the following problems? 1. Little interest or pleasure in doing things: several days 2. Feeling down, depressed, or hopeless: several days 3. Trouble falling or staying asleep, or sleeping too much: several days 4. Feeling tired or having little energy: several days 5. Poor appetite or overeating: nearly every day 6. Feeling bad about yourself - or that you are a failure or have let yourself or your family down: not at all 7. Trouble concentrating on things, such as reading the newspaper or watching television: not at all 8. Moving or speaking so slowly that other people could have noticed. Or the opposite - being so fidgety or restless that you have been moving around a lot more than usual: not at all 9. Thoughts that you would be better off or of hurting yourself in some way: not at all Total score: 7 Depression Screening Interpretation: Positive Depression Screening Done: Yes Source: Developed by Drs. Don Gallego, Pooja Carrasco, Antonio Wheatley and colleagues, with an educational kehinde from [employer]. Thrive Questionnaire Date Thrive assessed: 05/01/24 I am a: Patient What is your living situation today?: I have a steady place to live Within the past 12 months, did the food you bought not last and you didn't have the money to get more?: I choose not to answer this question Within the past 12 months, did you worry whether your food would run out before you got money to buy more?: I choose not to answer this question Do you have trouble paying for medicines?: No Do you have trouble getting transportation to medical appointments?: No Do you have trouble paying your heating and electricity bill?: No Do you have trouble taking care of your child, family member or friend?: No Do you have trouble with day-to-day activities such as bathing, preparing meals, shopping, managing finances, etc.?: No Are you currently unemployed and looking for a job?: No Are you interested in more education?: No Please select the resources that you would like help with: None Currently or been in a relationship where the following occur: No concerns reported THRIVE Score: 0 AUDIT C Alcohol Use Questionnaire (AUDIT-C) 1. How often do you have a drink containing alcohol?: Never Total Score: 0 ABBY-7 AMB Questionnaire ABBY-7 Date ABBY - 7 assessed: 08/08/24 Feeling nervous, anxious, or on edge: 0 = Not at all Not being able to stop or control worryin = Not at all Worrying too much about different things: 0 = Not at all Trouble relaxin = Not at all Being so restless that it is hard to sit still: 0 = Not at all Becoming easily annoyed or irritable: 0 = Not at all Feeling afraid as if something awful might happen: 0 = Not at all Total ABBY-7 score (0-4 normal; 5-9 mild; 10-14 moderate; 15-21 severe): 0 Source: Developed by Drs. Don Gallego, Pooja Carrasco, Antonio Wheatley and colleagues, with an educational kehinde from [employer]. Review of Systems Const Denies poor appetite and Denies weakness Eyes Denies no additional complaints ENT Reports Normal hearing present, Denies dizziness, Denies nasal congestion, Denies tinnitus and Denies sore throat Card Denies chest pain, Denies syncope, Denies rapid heart rate and Denies dyspnea Resp Denies cough and Denies dyspnea GI Denies change in stool character, Reports constipation, Denies diarrhea, Denies nausea and Denies vomiting Denies urinary frequency, Denies difficulty voiding and Denies dysuria Neuro Reports Normal hearing present, Denies confusion, Denies dizziness, Denies syncope and Denies weakness Psych Denies confusion Physical exam (Primary Care) Vital Signs: Last Vital Signs Temp 97.3 F 08/08/24 14:42 Pulse 64 08/08/24 14:42 BP 120/66 08/08/24 14:42 Pulse Ox 98 08/08/24 14:42 Oxygen Delivery Method Room Air 08/08/24 14:42 BMI result Body Mass Index 39.0 Tobacco/Smoking Status: Tobacco use Status Tobacco use date assessed 08/08/24 08/08/24 14:49 Patient Tobacco Use Status Never used Tobacco 08/08/24 14:49 e-Cigarette/Vaping Use Never Used 08/08/24 14:49 PHQ-9: PHQ-9 Score PHQ-9: Total score 7 08/08/24 14:49 Depression Screening Interpretation: Positive Thrive Assessment: Date of Thrive Assessment Date Thrive assessed 05/01/24 08/08/24 14:49 Currently or been in a relationship where the following occur: No concerns reported Const General: No confusion Orientation/consciousness: No confusion HENMT Head: Yes normocephalic Ears: external ears normal and TM's normal bilaterally Face and sinus: Yes normal facial exam Mouth: moist mucous membranes Throat: Yes tonsils normal Eyes Conjunctivae: conjunctivae normal Pupils: Equal, round and reactive pupils present and Pupil accommodation reflex normal Direct Ophthalmoscopy: normal light reflex Neck Neck: No lymphadenopathy Thyroid: Thyroid normal Chest Chest palpation & inspection: normal inspection of the chest Resp Effort & Inspection: normal respiratory effort and no audible wheezes Auscultation: clear to auscultation bilaterally, no crackles, no wheezes and lung sounds not diminished Cardio Rate: regular rate Rhythm: regular rhythm Peripheral pulses: radial pulses present and dorsalis pedis present GI Palpation (GI): no masses Auscultation: normal bowel sounds and normoactive bowel sounds Rectal Exam - Female: deferred Skin General skin exam: no rashes or lesions noted Rashes: no rashes Neuro General: No confusion Cranial nerves: Yes Equal, round and reactive pupils present and Yes Normal hearing present Cognition (Neuro): normal cognition Gait exam (Neuro): Normal gait present Motor exam (neuro): 5/5 motor strength present throughout Deep tendon reflexes (DTR's): Right brachioradialis reflex intensity grade: 2+, Left brachioradialis reflex intensity grade: 2+, Right patellar reflex intensity grade: 2+ and Left patellar reflex intensity grade: 2+ Extrem General: No edema Coding Level of Care Code Est Pt Prev Care >65y(56130) Diagnoses Annual physical exam Z00.00 Impaired glucose tolerance R73.02 Obesity E66.9 Hypercholesterolemia E78.00 Generalized anxiety disorder F41.1 Essential hypertension I10 Hypertension type: essential hypertension Assessment & Plan Assessment & Plan (1) Annual physical exam: Code(s): Z00.00 - Encounter for general adult medical examination without abnormal findings Category: Medical Plan: Patient is advised to eat healthy, keep well hydrated, keep active and have adequate sleep. (2) Impaired glucose tolerance: Code(s): R73.02 - Impaired glucose tolerance (oral) Category: Medical Plan: Decrease the amount of carbohydrate intake, pasta, bread, rice and potatoes are all sugar and that is aside from all the sweet stuff, remember that fruits are good but they are Sweet also. (3) Obesity: Code(s): E66.9 - Obesity, unspecified Category: Medical Plan: Diet and exercise (4) Hypercholesterolemia: Code(s): E78.00 - Pure hypercholesterolemia, unspecified Category: Medical Plan: Avoid fried foods, chicken skin, eggs, butter margarine, pastries and meat. Be it pork or beef they have a lot of cholesterol LDL goal of less than 130 and triglyceride of less than 150 (5) Generalized anxiety disorder: Code(s): F41.1 - Generalized anxiety disorder Category: Medical Plan: Continue with present medication (6) Hypertension: Code(s): I10 - Essential (primary) hypertension Category: Medical Qualifiers: Hypertension type: essential hypertension Qualified Code(s): I10 - Essential (primary) hypertension Plan: Continue with blood pressure medication. Decrease salt intake and exercise on metoprolol 100 mg once a day Plan History of Present Illness The patient is a 68-year-old female presenting for a physical exam and management of chronic health conditions including obesity, impaired glucose tolerance, essential hypertension, hypercholesterolemia, and generalized anxiety disorder. Her condition of hypertension is currently controlled with metoprolol, and her cholesterol levels are managed with rosuvastatin. She has a significant history of knee swelling post-injury in April 2023 and a prior episode of cellulitis. In her latest blood work from November 2023, there are indications of mild leukopenia and thrombocytopenia without any concerning symptoms related to blood clots or tendencies towards easy bruising. Despite an elevated triglyceride level, her glucose and other metabolic markers are within normal ranges. She adheres to a medication regimen with sertraline, vitamin supplements, and an adjusted diet to address her elevated triglycerides. The patient denies any new episodes of dizziness or syncope, and her history does not include alcohol or tobacco use. Health Maintenance - Mammogram performed in March 2023, with the next one scheduled for March 2024. - Bone density screening done in August 2021 and March 2024, with normal results. - Colonoscopy performed in June 2019. - Blood work completed in November 2023 showing normal metabolic function. - Lifestyle recommendations include diet modifications to incorporate plant proteins and reduce animal proteins. - Advise on avoidance of high cholesterol foods and recommendation for increased water intake and physical activity. Social History - Denies alcohol consumption and has never smoked cigarettes. - Takes vitamin supplements, including Vitamin D, Magnesium, and Complex B. - Manages diet to control cholesterol and glucose levels. Review of Systems - General: Denies dizziness, syncope, chest pain, or heartburn. - Cardiovascular: Denies shortness of breath, chest pain. - Respiratory: Denies shortness of breath. - Gastrointestinal: Denies difficulty swallowing, bowel issues. - Musculoskeletal: Reports past knee swelling, now resolved. - Neurological: Reports on-demand use of meclizine for occasional dizziness. - Dermatological: Reports pruritus with itchy ears, non-significant bleeds from minor scratches. - Psychiatric: Reports anxiety, managed with sertraline. Physical Exam General: Cooperative, healthy appearing, comfortable, no acute distress and well developed Orientation: Patient oriented x3 Limitations: No limitations Head: Normal to inspection Ears: Hearing grossly normal bilaterally, but patient reports ears are itchy and clean Nose: Normal external nose present Face and sinus: Normal facial exam Eyes: Appearance normal, both eyes and all related structures; last eye exam was a year ago Neck: Normal visual inspection and Yes full ROM Respiratory: Normal respiratory effort and able to speak in complete sentences. Clear to auscultation bilaterally Cardiovascular: Regular rate and rhythm. Normal S1 and S2 GI: Normal to inspection. Soft to palpation and nontender Skin: No rashes or lesions noted, but patient reports easy bleeding and scratching Neuro: Patient oriented x3 Extremities: Normal to inspection; patient reports knee swelling and musculoskeletal pain in the knee area Results - Labs: Mild leukopenia and thrombocytopenia noted in November 2023 blood work. - Tests and Diagnostics: Recent bone density confirmed normal status; mammogram scheduled for future screening. Plan We have reviewed and discussed the management of the patient's chronic conditions such as hypertension, hypercholesterolemia, and anxiety. I underlined the adherence to current medications?metoprolol and rosuvastatin?emphasizing the importance of dietary changes to manage lipid levels. Regular blood work is needed to monitor glucose and lipid levels. The mild leukopenia and thrombocytopenia require careful attention, hence avoiding NSAID use is prudent. Anxiety management will continue as before. Her preventive screenings are current, with a mammogram scheduled. We agreed that her management plan remains suitable and effective according to her recent health data, and a follow-up visit in a year was planned. Patient was informed and verbally consented to the use of an ambient scribe for clinic note documentation during this visit. Discussion Notes During our discussion, the patient and I reviewed her chronic conditions management, focusing on hypertension and hypercholesterolemia. We discussed the effectiveness of her medication regime, including metoprolol and rosuvastatin, and the role of dietary changes in maintaining her triglyceride and cholesterol levels. I explained the importance of avoiding NSAIDs due to her history of mild thrombocytopenia and leukopenia. We also discussed the need for regular fasting blood work and reviewed her current preventive care status, including her vaccination schedule. I reassured her that her management is appropriate and advised on potential complications of non-adherence. The necessity of a follow-up visit was also discussed and agreed upon. Patient Instructions Orders: Orders Complete Blood Count Auto Diff Today E78.00 - Pure hypercholesterolemia, unspecified Comprehensive Met. Panel Today E78.00 - Pure hypercholesterolemia, unspecified Free T4 (Free Thyroxine) Today E78.00 - Pure hypercholesterolemia, unspecified Lipid Panel Today E78.00 - Pure hypercholesterolemia, unspecified Vitamin B12 and Folate Today E78.00 - Pure hypercholesterolemia, unspecified Vitamin D 25-OH Total Today E78.00 - Pure hypercholesterolemia, unspecified Magnesium Today E78.00 - Pure hypercholesterolemia, unspecified Hemoglobin A1c Today E78.00 - Pure hypercholesterolemia, unspecified Thyroid Stimulating Hormone Today E78.00 - Pure hypercholesterolemia, unspecified
[2024-08-08 14:42] VITALS: BP 120/66; PULSE 64; TEMP 36.3; O2SAT 98; BMI 39.0
--- OUTSIDE RECORDS SUMMARY | 2024-08-08 14:46 | XMS_ITS ---
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 Role Phone Kenzie Stoddard Primary Care Provider Casper Swann Unavailable [phone] Allergies No Known Allergies REASON FOR VISIT Painful nail(s) aggravated by shoes causing difficulty standing/walking, Toe Irritation, Wart(s) Medications Medication SIG (Take, Route, Frequency, Duration) Notes Start Date End Date Status Metoprolol Succinate 100 MG 1 capsule Or ally Once a day Active Zoloft 100 MG 1 tablet Orally Once a day Active Orthopedic Extra Depth Shoes With Custom Heat Molded Multidensity Innersoles 1 Pair shoes with 3 Pair custom heat molded innersoles Wear Daily for 365 days 07/11/2024 Active Social History Tobacco Use: Social History Observation Description Date Details (start date - stop date) Never Smoker NA - NA Alcohol Screen Question Answer Notes Did you have a drink containing alcohol in the p ast year? No Points 0 Interpretation Negative Tobacco use other than smoking: Question Answer Notes Are you an other tobacco user? No Tobacco Control (Standard) Question Answer Notes Tobacco use: Nonsmoker Additional Findings: Tobacco non-user Current no nsmoker Problems Problem Type SNOMED Code ICD Code Onset Dates Problem Status W/U Status Risk Notes Problem Acquired hammer toe of right foot (7997577714005 105) Other hammer toe(s) (acquired), right foot (M20.41) Active confirmed Problem Acquired hammer toe of left foot (6817278181682 103) Other hammer toe(s) (acquired), left foot (M20.42) Active confirmed Problem Plantar wart (66194793) Plantar wart (B07.0) Active confirmed Vital Signs Blood pressure systolic 121 mm Hg 07/12/19 25 Blood pressure diastolic 63 mm Hg 025 Height 5ft 3in in 07/11/2024 Weight 220 lbs 07/11/2024 BMI 38.97 kg/m2 07/11/2024 Procedures Procedure Date Ordered Date Performed Result Body Sit e 20855-WTXIIDG NAIL, 6 OR MORE 07/11/2024 N/A 94518-Lgtr Destruction, 1-14 07/11/2024 N/A Encounters Encounter Location Date Provider Diagnosis [facility] [place] [address] [place] [address] 07/11/2024 Casper Yoo Pain in right toe(s) M79.674 ; Onychomycosis B35.1 ; Pain in left toe(s) M79.675 ; Other hammer toe(s) (acquired), right foot M20.41 ; Other hammer toe(s) (acquired), left foot M20.42 ; Plantar wart B07.0 and Left foot pain M79.672 Assessments Encounter Date Diagnosis (ICD Code) Assessment Notes Treatment Notes Treatment Clinical Notes Section Notes 07/11/2024 Pain in right toe(s) (ICD-10 - M79.674) 07/11/2024 Onychomycosis (ICD-10 - B35.1) 07/11/2024 Pain in left toe(s) (ICD-10 - M79.675) 07/11/2024 Other hammer toe(s) (acquired), right foot (ICD-10 - M20.41) 07/11/2024 Other hammer toe(s) (acquired), left foot (ICD-10 - M20.42) 07/11/2024 Plantar wart (ICD-10 - B07.0) 07/11/2024 Left foot pain (ICD-10 - M79.672) Plan Of Treatment Medication Medication Name Sig Start Date Stop Date Notes Orthopedic Extra Depth Shoes With Custom Heat Molded Multidensity Innersoles 1 Pair shoes with 3 Pair custom heat molded innersoles Wear Daily for 365 days 07/11/2024 Pending Test Test Name Order Date 13770-WVLDGJA NAIL, 6 OR MORE 07/11/2024 65901-Xdvy Destruction, 1-14 07/11/2024 Next Appt Details Follow Up: 3 Months, Reason: Provider Name:Casper Yoo , 10/10/2024 12:00:00 PM, [address] [place] [address], [id number], Procedure Notes * Category Sub-Category Detail Notes Wart Treatment Procedure Verruca, as desc ribed in exam, were debrided to pin-point bleeding margins with sterile 15 surgical blade, silver nitrate chemocautery applied, recomm. immune-boosting meds such as zinc, recomm. follow up with topical chemosurgical agents, Pt defers any other forms of tx - 55103 Debride Nail 6-10 Nail debridement Due to the cl inical pathology outlined in the exam findings, performance of this nail treatment is medically necessary as its management by an unskilled/untrained nonprofessional would put this patients foot and overall health at risk. Therefore, debridement to affected nail(s), as described in exam ( TA , T1 , T2 , T4 , T5 , T6 , T7 , T9 ), was performed exclusively by the physician of record to reduce/remove overall nail length, girth, thickness, subungual debris, and necrotic tissue, by manual and/or electrical means through the use of a nail nipper and/or dremel-type grinder dresser, to a more viable healthy nail plate or bed tissue 6-10 nails in total. Silver nitrate was used for any petechial bleeding as necessary. Definitive antifungal treatment options, both pharmaceutical and surgical, have been reviewed and discussed with the patient. The patient solely prefers the use of intermittent/as needed professional debridement services for their nail condition and understands the need for additional periodic treatments to maintain effectiveness in symptomatic relief - Progress Notes * WEIRSue WoodsDOB:1955 ( 68 yo F)Acc No.[id number]:07/11/2024 Progress Note Patient:?Sue WEIR Provider:?Casper Yoo DPM :1955???Age:68 Y???Sex:Female D ate:07/11/2024 Address:[address] [place] [address] [address], [place] Pcp:Kenzie Stoddard Subjective: * Chief Complaints: * ???Painful nail(s) aggravate d by shoes causing difficulty standing/walkingToe IrritationWart(s) * HPI: ???Painful Nails:?Pt States Last PCP Visit:?Date:?02/14/2024 ???Toe pain:?Location:?B/L feet.?Duration:?several years.?Course:?worse.?Aggravated by:?shoes, any pressure.?Treatments:?change in shoes.? * ROS:?General/Constitutional:?Nausea?denies.?Vomiting?denies.?Hunger Thirst?denies.?Loss appetite?denies.?Chills?denies.?Fatigue?denies.?Fever?denies.?Night Sweats?denies.?Unexplained weight loss?denies.?Unexplained weight gain?denies.?HEENTM:?Dentures?admits.?Dizziness?denies.?Glasses/contacts?admits.?Retinopathy?de nies.?Blurred/double vision?denies.?TMJ?denies.?Discharge/drainage?denies.?Implants?denies.?Sore throat?denies.?Dental implants?denies.?Hard of hearing ?denies.?Difficulty chewing/swallowing/speaking?denies.?Nose bleeds?denies.?Sore mouth?denies.?Respiratory:?On Oxygen?denies.?Pneumonia/pleurisy?denies.?Bronchitis?denies.?Emphysema?denies.?C oughing?denies.?Cough blood?denies.?Shortness of breath?denies.?Wheezing?denies.?Cardiovascular:?Pacemaker?denies.?MVP?denies.?WPW?denies.?CHF?denies.?Heart attack?denies.?Septal defect?denies.?Rapid beat?denies.?Chest pain ?denies.?Atrial Fib.?denies.?Murmur/Palpitations?denies.?Gastrointestinal:?Hemorrhoids?denies.?Stomach/Abdominal pain?denies.?Dark blood stool?denies.?Irritable bowel ?denies.?Constipation?denies.?Diarrhea?denies.?Hematology:?Swelling?denies.?Clots?denies.?Varicose Veins?denies.?Bruising?denies.?Bleeding problem?denies.?Genitourinary:?Blood urine?denies.?Frequent/Painfu/urination/bladder control?denies.?Kidney stones?denies.?Infection (UTI)?denies.?Nephropathy?denies.?sex trans dis (STD)?denies.?Prostate?denies.?Musculoskeletal:?Hammertoes?denies.?Bunions?admits.?Back Pain?admits.?Muscle Cramps/ Resting?denies.?Muscle cramps / walking?denies.?Generalized aches and pains?denies.?Weakness?denies.?Integ.:?Pearce?denies.?Scars?denies.?Corns/calluses?admits.?Ingrown nails?admits.?Painful nails?admits.?Open Sores?denies.?Rashes?denies.?Neurologic:?Difficulty sleeping?denies.?Brain disorder?denies.?Numbness?denies.?Balance trouble?denies.?Confusion?denies.?Fainting/blackouts?denies.?Tingling?denies.?Tr emors?denies.? * Medical History:? * Surgical History:?No Surgica l History documented. * Hospitalization/Major Diagno stic Procedure:?No Hospitalization History. * Family History:?Father: juan zhaod with Unspecified heart disease, Unspecified cerebral artery occlusion with cerebral infarction.? * Social History:?Tobacco Use:?Tobacco use other than smoking?Are you an other tobacco user??No ?Tobacco Control (Standard)?Tobacco use:?Nonsmoker ?Additional Findings: Tobacco non-user?Current nonsmoker ???Drugs/Alcohol:?Drugs?Have you used drugs other than those for medical reasons in the past 12 months??No ?Alcohol Screen?Did you have a drink containing alcohol in the past year??No ?Points?0 ?Interpretation?Negative ???Miscellaneous:?Caffeine: yes, frequency: 16 ounces. ?Children: yes, 3. ?Exercise: no. ?Marital status: . 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 * Medications:?TakingZoloft 10 0 MG Tablet 1 tablet Orally Once a day Metoprolol Succinate 100 MG Capsule ER 24 Hour Sprinkle 1 capsule Orally Once a day Medication List reviewed and reconciled with the patientTaking Zoloft 100 MG Tablet 1 tablet Orally Once a day Taking Metoprolol Succinate 100 MG Capsule ER 24 Hour Sprinkle 1 capsule Orally Once a day Medication List reviewed and reconciled with the patient * Allergies:?N.K.D.A.yes[Aller gies Verified] Objective: * Vitals:?Ht: 5ft 3in, Wt:220, BMI:38.97, Shoe size: 8.5-9, BP:121/63mm Hg, Ht-cm: 160.02 cm, Wt-k.79 kg. * Examination: ???Nails: ?NAILS are:?Elongated, overgrown, dystrophic, lytic, greater than 3mm thick, discolored and friable with crumbly malodorous subungual debris, with pain on palpation , TA , T1 , T2 , T4 , T5 , T6 , T7 , T9, all other nails not described with characteristics as possessing mycosis are elongated, overgrown, and dystrophic.?Dermatologic: ?VERRUCA:?Reveals a Single , multi-loculated , mosaic-patterned, round, raised, flat-topped, petechial bleeding papule(s), with cauliflower appearance and interruption of skin lines, pain to lateral compression, and size estimated at 10mm diameter, plantar Forefoot, LEFT.?Orthopedic: ?MUSCLE STRENGTH:?5/5 all groups in a symmetrical fashion, B/L.?DIGITAL DEFORMITIES:?Digital contracture, PIPJ, 2-5 B/L, incompl-reducible to push-up test, no over, nor underlapping,?there is?evidence of shoe producing skin irritation.?FOOTWEAR:?worn, non-supportive, shoe gear properties exacerbate patient's foot/toe deformity.?Vascular: ?DP PULSES (B):?3/4, B/L.?PT PULSES (B):?3/4, B/L.?CAPILLARY FILL TIME:?immediate, all digits, B/L.?TROPHIC CONDITION-TEXTURE/ELASTICITY/TURGOR/HAIR GROWTH (B):?normal, B/L.?TEMPERTURE GRADIENT (C):?warm to cool, proximal to distal, B/L.?PIGMENTATION:?normal, B/L.?EDEMA (C):?absent, B/L.?Neurological: ?SENSORY:?Neurological exam reveals intact sensorium, pain sensation normal, vibration sensation intact, pinprick sensation is normal in the lower extremities, Pt denies, anesthesia, burning, paresthesia, tingling, B/L.?DEEP TENDON REFLEXES:?Achilles, 2/4, B/L.?General Examination: ?GENERAL APPEARANCE:?Reveals a pleasant, alert, well nourished, well- developed, well hydrated individual, who demonstrates proper attention to hygiene/body habitus, and is in no acute distress, Pt serves as own historian for office visit today.?ORIENTED:?person, place, and time.? Assessment: * Assessment: 1.?Pain in right toe(s) - M7 9.674???2.?Pain in left toe(s) - M79.675???3.?Onychomycosis - B35.1 (Primary)???4.?Other hammer toe(s) (acquired), right foot - M20.41???Specify :Chronic problem, Worse (4),Rx Management (4)???5.?Other hammer toe(s) (acquired), left foot - M20.42???Specify :Chronic problem, Worse (4),Rx Management (4)???6.?Plantar wart - B07.0???Specify :LEFT???7.?Left foot pain - M79.672??? Plan: * Treatment: 2.?Other hammer toe(s) (acqu ired), right foot? Start Orthopedic Extra Depth Shoes, With Custom Heat Molded Multidensity Innersoles, 1 Pair shoes with 3 Pair custom heat molded innersoles, Wear, Daily, 365 days, 2, Refills 0.?? 3.?Plantar wart?Procedure: 56807-Rpin Destruction, 1-14 * Procedures:?Debride Nail 6-10:?Nail debridement?Due to the clinical pathology outlined in the exam findings, performance of this nail treatment is medically necessary as its management by an unskilled/untrained nonprofessional would put this patients foot and overall health at risk. Therefore, debridement to affected nail(s), as described in exam (?TA?,?T1?,?T2?,?T4?,?T5?,?T6?,?T7?,?T9?), was performed exclusively by the physician of record to reduce/remove overall nail length, girth, thickness, subungual debris, and necrotic tissue, by manual and/or electrical means through the use of a nail nipper and/or dremel-type grinder dresser, to a more viable healthy nail plate or bed tissue 6-10 nails in total. Silver nitrate was used for any petechial bleeding as necessary. Definitive antifungal treatment options, both pharmaceutical and surgical, have been reviewed and discussed with the patient. The patient solely prefers the use of intermittent/as needed professional debridement services for their nail condition and understands the need for additional periodic treatments to maintain effectiveness in symptomatic relief - 30334.?Wart Treatment:?Procedure?Verruca, as described in exam, were debrided to pin-point bleeding margins with sterile 15 surgical blade, silver nitrate chemocautery applied, recomm. immune-boosting meds such as zinc, recomm. follow up with topical chemosurgical agents, Pt defers any other forms of tx - 94850.? * Procedure Codes:?51287 DEBRI DE NAIL, 6 OR MORE, Modifiers: XS 28074 Wart Destruction, 1-14, Modifiers: XS * Preventive Medicine:? ??Counseling:?Discussion:?-14: Office or other outpatient visit for the evaluation and management of an established patient, which required a medically appropriate history and/or examination and MODERATE level of DECISION MAKING for: 1 OR MORE CHRONIC PROBLEM(S) THATS WORSENING, 2 STABLE CHRONIC PROBLEMS, A NEWLY DIAGNOSED PROBLEM WITH UNCERTAIN PROGNOSIS, AN ACUTE COMPLICATED INJURY WITH MULTIPLE TREATMENT OPTIONS, OR AN ACUTE PROBLEM WITH ACCOMPANYING SYSTEMIC SYMPTOMS, THAT POSE(S) A MODERATE RISK OF MORBIDITY. THIS CONDITION MAY ALSO INCLUDE RX DRUG MANAGEMENT, OR A DECISON FOR MINOR SURGERY. The visit on the day of the encounter encompassed interpreting the data and educating the patient as to the nature of their condition, treatment options available according to their individual PMH, meds, allergies, and overall health/living conditions, as well as any potential risks or complications that may occur from a failure to adhere to, and participate in, the recommended course of therapy. The discussion included a complete verbal, and/or written explanation of the examination results, any x-rays taken, the proposed diagnosis, and outline of the treatment plan. A schedule for future care needs was also explained. The patient verbalized an understanding of the instructions at this time and agreed to be an active participant in their treatment. If the patient should think of any questions or concerns after the visit, I have encouraged the patient to call the office.?Digital Surgery:?Digital surgery was discussed with the patient, We elected to try conservative treatment at the present time, due to the patients medical history and increased asssociated post-operative risks.?Digital Treatment:?HT- I explained to the patient the possible etiologies of Hammertoes, including genetics/foot type/shoegear/activity level/exercise routine and the risks/benefits of all the different treatment options for their pain including: No treatment at all, Rest, Ice, New/supportive/wider/deeper Shoegear, Digital Padding/Strapping/Taping/Bracing/Gel protective sleeves, Foot/Ankle AFO Bracing, Stretching exercises, Deep Tissue Massage, Arch support/shoe inserts with splay metatarsal padding, and Custom orthoses. I insisted that any digital devices be removed daily and not worn overnight for safety. The patient is to carefully examine the toes daily for any skin irritation while using any splinting or padding device. The advantages and disadvantages of each option were discussed and the patients questions re: shoegear, padding, custom vs prefabricated inserts, activity level, and consistency in home treatment regimens for optimal success were answered to their verbally confirmed satisfaction.?Shoe Gear Counseling:?SHOE Rx - The patient was counseled in great detail on their muscoloskeletal foot and toe deformities which coincided with the dermatological presentations visualized on exam. We discussed how their deformities put the integrity of their feet at risk for potential pedal complications which makes the accomidative diabetic shoes and cutomizable inserts medically necessary. We discussed the different shoe and insert treatment types and options, as well as the important advantages for adhering to regularly wearing these accomidative devices daily. The patient was made aware of the fact that a failure to abide by these recommedations may be deleterious to their foot health as they are able to prevent many pedal complications such as skin irritation, skin ulceration, infection, and even loss of toe/foot/leg/or life. Time was also spent with the patient dispensing and discussing proper diabetic footcare techniques including daily skin moisturization, daily foot inspection for any interruption in skin integrity including open lesions, or sign of infection such as redness/malodor/drainage/swelling. Also discussed and recommended were procedures regarding daily shoe inspection for the presence of internal foreign bodies as well as any visualized irregular shoe or insert wear. Patient questions re: shoes, inserts, and self foot inspections were answered to their satisfaction as the patient verbally confirmed a full understanding of the above information. A Rx for Extra Depth Orthopedic Shoes with 3 pair of custom heat-molded inserts was dispensed.? ??Screening/Special Tests:?Fall Risk?Screening:?No falls in the past year ?FALLS: Screening for Future Fall Risk?Have you had any falls with injury in the past year??No * Follow Up:?3 Months * Images: * Sign off status: Completed true * Provider:?Casper Yoo DPM Date:?2024 Generated for Autumn krishna/Red/yAush on:?08/08/2024 02:46 PM EDT History and Physical Notes * HPI (History of Present Illness) Category Sub-Category Detail Notes Category Not es Toe pain Location: B/L feet Duration: several years Course: worse Aggravated by: shoes, any pressure Treatments: change in shoes Painful Nails Pt States Last PCP Visit: Date:: 02/14/2024 Examination Category Sub-Category Detail Notes Category Not es Neurological SENSORY: Neurological exa m reveals intact sensorium, pain sensation normal, vibration sensation intact, pinprick sensation is normal in the lower extremities, Pt denies, anesthesia, burning, paresthesia, tingling, B/L DEEP TENDON REFLEXES: Achilles, 2/4, B/L Dermatologic VERRUCA: Reveals a Single , multi-loculated , mosaic-patterned, round, raised, flat-topped, petechial bleeding papule(s), with cauliflower appearance and interruption of skin lines, pain to lateral compression, and size estimated at 10mm diameter, plantar Forefoot, LEFT Orthopedic FOOTWEAR EVALUATION: worn, non-s upportive, shoe gear properties exacerbate patient's foot/toe deformity DIGITAL DEFORMITIES: Digital contracture , PIPJ, 2-5 B/L, incompl-reducible to push-up test, no over, nor underlapping, there is evidence of shoe producing skin irritation MUSCLE STRENGTH: 5/5 all groups in a symmetrical fashion, B/L General Examination GENERAL APPEARANCE: Reveals a pleasant, alert, well nourished, well-developed, well hydrated individual, who demonstrates proper attention to hygiene/body habitus, and is in no acute distress, Pt serves as own historian for office visit today ORIENTED: person, place, and t gale Vascular DP PULSES (B): 3/4, B/L PT PULSES (B): 3/4, B/L CAPILLARY FILL TIME: immediate, all digi ts, B/L TEMPERTURE GRADIENT (C): warm to cool, p roximal to distal, B/L TROPHIC CONDITION-TEXTURE/ELASTICITY/TURGOR/HAIR GROWTH (B): normal, B/L EDEMA (C): absent, B/L PIGMENTATION: normal, B/L Nails NAILS are: Elongated, overg rown, dystrophic, lytic, greater than 3mm thick, discolored and friable with crumbly malodorous subungual debris, with pain on palpation , TA , T1 , T2 , T4 , T5 , T6 , T7 , T9, all other nails not described with characteristics as possessing mycosis are elongated, overgrown, and dystrophic
--- OUTSIDE RECORDS SUMMARY | 2024-08-08 14:46 | XMS_ITS | Patient Health Record ---
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 Role Phone Kenzie Stoddard Primary Care Provider Casper Swann Unavailable [phone] Allergies No Known Allergies Reason For Referral No Information Medications Medication SIG (Take, Route, Frequency, Duration) [...] Problem Acquired hammer toe of right foot (8679993755579803 ) Other hammer toe(s) (acquired), right foot (M20.41) Active confirmed Problem Acquired hammer toe of left foot (5374262727719498 ) Other hammer toe(s) (acquired), left foot (M20.42) Active confirmed Problem Plantar wart (66726099) Plantar wart (B07.0) Active confirmed Problem Onychomycosis (445867342) Onychomycosis (B35.1) Active confirmed Vital Signs Blood pressure diastolic 63 mm Hg 07/11/2024 Height 5ft 3in in 07/11/2024 Blood pressure systolic 121 mm Hg 07/11/2024 Weight 220 lbs 07/11/2024 BMI 38.97 kg/m2 07/11/2024 Procedures Procedure Date Ordered Date Performed Result Body Sit e 38810-HHDWWDQ NAIL, 6 OR MORE 02/15/2024 N/A 90552-Skbimacy Plate 02/15/2024 N/A 83668-IWKGTRZ NAIL, 6 OR MORE 07/11/2024 N/A 90905-Ulap Destruction, 1-14 07/11/2024 N/A Encounters Encounter Location Date Provider Diagnosis [address] [address] 02/15/2024 Casper Yoo Onychomycosis B35.1 ; Pain in right toe(s) M79.674 ; Pain in left toe(s) M79.675 ; Ingrown nail L60.0 ; Pain in left foot M79.672 ; Pain in left ankle and joints of left foot M25.572 ; Bursitis of left foot M77.52 ; Hallux valgus (acquired), left foot M20.12 ; Pain in right foot M79.671 ; Pain in right ankle and joints of right foot M25.571 ; Bursitis of right foot M77.51 and Hallux valgus (acquired), right foot M20.[address] [address] 07/11/2024 Casper Yoo Pain in right toe(s) M79.674 ; Onychomycosis B35.1 ; Pain in left toe(s) M79.675 ; Other hammer toe(s) (acquired), right foot M20.41 ; Other hammer toe(s) (acquired), left foot M20.42 ; Plantar wart B07.0 and Left foot pain M79.[address] [address] 05/14/2024 Casper Yoo Assessments Encounter Date Diagnosis (ICD Code) Assessment Notes Treatment Notes Treatment Clinical Notes Section Notes 07/11/2024 Pain in right toe(s) (ICD-10 - M79.674) 02/15/2024 Onychomycosis (ICD-10 - B35.1) 02/15/2024 Pain in right toe(s) (ICD-10 - M79.674) 07/11/2024 Onychomycosis (ICD-10 - B35.1) 07/11/2024 Pain in left toe(s) (ICD-10 - M79.675) 07/11/2024 Other hammer toe(s) (acquired), right foot (ICD-10 - M20.41) 02/15/2024 Pain in left toe(s) (ICD-10 - M79.675) 02/15/2024 Ingrown nail (ICD-10 - L60.0) 07/11/2024 Other hammer toe(s) (acquired), left foot (ICD-10 - M20.42) 07/11/2024 Plantar wart (ICD-10 - B07.0) 02/15/2024 Pain in left ankle and joints of left foot (ICD-10 - M25.572) 02/15/2024 Pain in left foot (ICD-10 - M79.672) 07/11/2024 Left foot pain (ICD-10 - M79.672) 02/15/2024 Bursitis of left foot (ICD-10 - M77.52) 02/15/2024 Hallux valgus (acquired), left foot (ICD-10 - M20.12) 02/15/2024 Pain in right foot (ICD-10 - M79.671) 02/15/2024 Pain in right ankle and joints of right foot (ICD-10 - M25.571) 02/15/2024 Bursitis of right foot (ICD-10 - M77.51) 02/15/2024 Hallux valgus (acquired), right foot (ICD-10 - M20.11) Plan Of Treatment Pending Test Test Name Order Date 05813-QUSQYGF NAIL, 6 OR MORE 02/15/2024 02624-VLFGHPF NAIL, 6 OR MORE 07/11/2024 62353-Vbkh Destruction, 1-14 07/11/2024 34434-Djakwacl Plate 02/15/2024 Next Appt Details Provider Name:Casper Yoo , 10/10/2024 12:00:00 PM, [address] [place], [address], Insurance Providers Payer Name Payer Address Payer Phone Subscriber Number Group Number Insured Name Patient Relationship to Insured Coverage Start Date Coverage End Date [facility] [employer] Claims [address] [place] [id number] Sue Weir Self - patient is the insured Medical (General) History Medical History History ICD Code Anxiety Back,Hip,and Knee pain CAD (Cholesterol) Depression High Blood Pressure Joint implants/screws
--- OUTSIDE RECORDS SUMMARY | 2024-08-08 14:47 | XMS_ITS ---
Author Organization [facility] Address [address] [place] [address] Care Team Providers Care Agriculture Laboratory Technician Name Role Phone Kenzie Stoddard Primary Care Provider Casper Swann Unavailable [phone] REASON FOR VISIT r/s 05/16 Encounters Encounter Location Date Provider Diagnosis [address] [address] 05/14/2024 Casper Yoo Plan Of Treatment Next Appt Details Provider Name:Casper Yoo , 10/10/2024 12:00:00 PM, [address] [place] [address], [phone], Progress Notes * Sue WEIRDOB:1955 ( 68 yo F)Acc No.[id number]:05/14/2024 Patient:?Sue WEIR :1955???Age:68 Y???Sex:Female Address:[address] [place] [address] [address], [place], [address] * true * Date:? Generated for Kristini ng/Red/eTransmitting on:?08/08/2024 02:46 PM EDT
--- OUTSIDE RECORDS SUMMARY | 2024-08-08 14:47 | XMS_ITS ---
Author Organization [facility] Address [address] [place] [address] Care Team Providers Care Television Picture Tube Rebuilder Name Role Phone Kenzie Stoddard Primary Care Provider Casper Swann Unavailable [phone] Encounters Encounter Location Date Provider Diagnosis [address] [address] 05/16/2024 Casper Yoo Plan Of Treatment Next Appt Details Provider Name:Casper Yoo , 10/10/2024 12:00:00 PM, [address] [place] [address], [phone], Progress Notes * Sue WEIRDOB:1955 ( 68 yo F)Acc No.[id number]:05/16/2024 Progress Note Patient:?Sue WEIR Provider:?Casper Yoo DPM :1955???Age:68 Y???Sex:Female D ate:05/16/2024 Address:[address] [facility] [id number] Pcp:Kenzie Stoddard Subjective: * Chief Complaints: * ??? * Medical History:? Objective: * Vitals:? Assessment: Plan: * Treatment: * Images: * The named appointment provid er may or may not be the originator of this progress note, and it is not deemed complete until electronically signed by the appointment provider. Sign off status: Pending * Provider:?Casper Yoo DPM Date:?2024 Generated for Autumn krishna/Red/Ayush on:?08/08/2024 02:46 PM EDT
== END 2024-08-08 15:29 | disposition home or self-care (01) ==
LOC: HO.HMCH 14:31
PROVIDERS: PCP Internal Medicine; Visit Provider Internal Medicine
DX: Z00.00 Encounter for general adult medical examination without abnormal findings (principal); R73.02 Impaired glucose tolerance (oral); E66.9 Obesity, unspecified; Z68.39 Body mass index [BMI] 39.0-39.9, adult; E78.00 Pure hypercholesterolemia, unspecified; F41.1 Generalized anxiety disorder; I10 Essential (primary) hypertension

== ENCOUNTER → 2024-08-08 14:30 | Outpatient (BNVA) | payer OTHER, SELFPAY | PROVIDERS: PCP Internal Medicine; Visit Provider Internal Medicine | DX: Z00.00 Encounter for general adult medical examination without abnormal findings (principal); R73.02 Impaired glucose tolerance (oral); E66.9 Obesity, unspecified; E78.00 Pure hypercholesterolemia, unspecified; F41.1 Generalized anxiety disorder; I10 Essential (primary) hypertension; Z79.899 Other long term (current) drug therapy; Z68.39 Body mass index [BMI] 39.0-39.9, adult | CPT/HCPCS: 96127; 99397 ==

== ENCOUNTER 2024-09-24 10:59 | Outpatient (AMB) | payer OTHER, SELFPAY ==
[2024-09-24 11:27] VITALS: BP 102/80; PULSE 75; TEMP 36.8; O2SAT 96; BMI 38.6
--- NOTE | 2024-09-24 11:27 | AM.OFFWIN_ITS ---
Intake Vital Signs 09/24/24 11:27 Height 5 ft 3 in Weight 218 lb 2 oz BMI 38.6 BP 102/80 Blood Pressure Location Lt brachial Position Sitting Pulse 75 Pulse Source Pulse Oximeter Temp 98.2 F Temp Source Oral Pulse Oximetry (%) 96 Oxygen Delivery Method Room Air Intake Visit Reasons: EP injured middle finger on RT hand & LT knee Intake Note: Pt is here today c/o Rt hand middle finger and Lt knee pain due to a fall at home x4days ago Patient Tobacco Use Status: Never used Tobacco Allergies atorvastatin [Lipitor] Allergy (Unknown, Verified 09/24/24 11:28) Unknown lisinopril Allergy (Unknown, Verified 09/24/24 11:28) Unknown simvastatin Allergy (Unknown, Verified 09/24/24 11:28) Unknown Medication List - Last Reconciled 09/24/24 by Courtney Gamez MD acetaminophen 1,000 mg (2 x 500 mg) PO Q6H PRN ascorbate calcium (vitamin C) 1 g PO .QD cholecalciferol (vitamin D3) 25 mcg PO DAILY clotrimazole 1% 1 appl topical BID cyanocobalamin (vitamin B-12) 1,000 mcg PO DAILY meclizine 25 mg PO TID PRN metoprolol succinate ER 100 mg PO DAILY rosuvastatin 20 mg PO DAILY sertraline 100 mg PO DAILY triamcinolone acetonide 0.5% 1 appl topical BID 14 days vit B complex 100 combo no.2 ER (B-100 Complex ER) tabs PO HPI EP injured middle finger on RT hand & LT knee HPI Details History - The patient is a 69-year-old female pr esenting with knee pain. After a fall 3 days ago patient tripped and fell on left knee and injured her right middle finger distal phalanx Which is swollen and painful She waited 3 days but pain did not get better so she came in Plan: - Undergo two x-rays as recommended. Fo r knee and finger - Take prescribed medicine for pain jeannie gement. Diclofenac 75 b.i.d. for 10 days with food - Return for a follow-up visit on Sunday to discuss the x-ray results and evaluate current condition. Review of Systems - General: No fever no chills - Neurological: No headaches no dizziness - Ear nose throat: No sore throat no hearing difficulty no ear pain - Cardiovascular: No syncope, no chest pain, no palpitations Physical Exam General: No acute distress HEENT: No acute findings Neck: Supple Respiratory system: Able to talk in full sentences, Extremities: Left knee with superficial abrasion healing, range of motion intact no swelling, right hand middle finger distal phalanx swollen sensory motor intact but not able to bend the injured finger RAISE MINER: Alert awake oriented x3 Skin: Normal turgor [facility] Medical History Left renal stone Well woman exam Vertigo Hypercholesterolemia Low back pain Postmenopausal bleeding Carpal tunnel syndrome Impaired glucose tolerance Anxiety and depression Hypertension Obesity Surgical History History of foot surgery History of tonsillectomy History of tubal ligation Family History Father No problems noted. Mother Skin cancer Breast cancer Paternal Uncle Myocardial infarction Brother No problems noted. Brother No problems noted. Sister No problems noted. Son No problems noted. Son No problems noted. Daughter No problems noted. Social History Household Members: Spouse Housing: Apartment Alcohol intake: never Patient Tobacco Use Status: Never used Tobacco e-Cigarette/Vaping Use: Never Used Second Hand Smoke Exposure: No service: No Current occupational status: unemployed Current occupational exposures/hazards: No Sexual orientation: Straight/Heterosexual Gender identity: Female Cognitive needs: No Hearing needs: No Vision needs: Yes Female Reproductive History Menstrual Age of Menarche: 13 Physical Exam Vital Signs: Last Vital Signs Temp 98.2 F 09/24/24 11:27 Pulse 75 09/24/24 11:27 BP 102/80 09/24/24 11:27 Pulse Ox 96 09/24/24 11:27 Oxygen Delivery Method Room Air 09/24/24 11:27 BMI result Body Mass Index 38.6 Assessment & Plan Assessment & Plan (1) Injury, finger: Code(s): S69.90XA - Unspecified injury of unspecified wrist, hand and finger(s), initial encounter Qualifiers: Encounter type: initial encounter Laterality: right Qualified Code(s): S69.91XA - Unspecified injury of right wrist, hand and finger(s), initial encounter (2) Left knee injury: Code(s): S89.92XA - Unspecified injury of left lower leg, initial encounter Qualifiers: Encounter type: initial encounter Qualified Code(s): S89.92XA - Unspecified injury of left lower leg, initial encounter Plan History - The patient is a 69-year-old female presenting with knee pain. After a fall 3 days ago patient tripped and fell on left knee and injured her right middle finger distal phalanx Which is swollen and painful She waited 3 days but pain did not get better so she came in Plan: - Undergo two x-rays as recommended. For knee and finger - Take prescribed medicine for pain management. Diclofenac 75 b.i.d. for 10 days with food - Return for a follow-up visit on Sunday to discuss the x-ray results and evaluate current condition. Finger was placed in splint Orders: Orders XR finger RT min 2V Today S69.90XA - Unspecified injury of unspecified wrist, hand and finger(s), initial encounter XR knee LT 2V Today S89.92XA - Unspecified injury of left lower leg, initial encounter Medications: New diclofenac sodium 75 mg PO BID 10 days 20 tabs 0RF pain Coding Level of Care Code Est Pt Level 3 (05049) Diagnoses Injury of finger of right hand, initial encounter S69.91XA Encounter type: initial encounter Laterality: right Injury of left knee, initial encounter S89.92XA Encounter type: initial encounter
--- OUTSIDE RECORDS SUMMARY | 2024-09-24 11:55 | XMS_ITS | Patient Health Record ---
Author Organization [facility] Address [address] [facility] [place] [address] Care Team Providers Care Registration Manager Name Role Phone Kenzie Stoddard Primary Care Provider Casper Swann Unavailable [phone] Allergies No Known Allergies Reason For Referral [...] Problem Acquired hammer toe of right foot (4874928883558980 ) Other hammer toe(s) (acquired), right foot (M20.41) Active confirmed Problem Acquired hammer toe of left foot (7606025380735623 ) Other hammer toe(s) (acquired), left foot (M20.42) Active confirmed Problem Plantar wart (30724029) Plantar wart (B07.0) Active confirmed Problem Onychomycosis (323162631) Onychomycosis (B35.1) Active confirmed Vital Signs Blood pressure diastolic 63 mm Hg 07/11/2024 Height 5ft 3in in 07/11/2024 Blood pressure systolic 121 mm Hg 07/11/2024 Weight 220 lbs 07/11/2024 BMI 38.97 kg/m2 07/11/2024 Procedures Procedure Date Ordered Date Performed Result Body Sit e 31221-SPSRAXJ NAIL, 6 OR MORE 02/15/2024 N/A 58698-Nrjdqvaq Plate 02/15/2024 N/A 84857-IDDEHUS NAIL, 6 OR MORE 07/11/2024 N/A 08979-Nzrz Destruction, 1-14 07/11/2024 N/A Encounters Encounter Location Date Provider Diagnosis [address] [address] 02/15/2024 Casper Yoo Onychomycosis B35.1 ; Pain [...] and Hallux valgus (acquired), right foot M20.[address] [address] 07/11/2024 Csaper Yoo Pain in right toe(s) M79.674 ; Onychomycosis B35.1 ; Pain in left toe(s) M79.675 ; Other hammer toe(s) (acquired), right foot M20.41 ; Other hammer toe(s) (acquired), left foot M20.42 ; Plantar wart B07.0 and Left foot pain M79.[address] [address] 05/14/2024 Casper Yoo Assessments Encounter Date Diagnosis (ICD Code) Assessment Notes Treatment Notes Treatment Clinical Notes Section Notes 02/15/2024 Onychomycosis (ICD-10 - B35.1) 07/11/2024 Pain in right toe(s) (ICD-10 - M79.674) 07/11/2024 Pain in left toe(s) (ICD-10 - M79.675) 02/15/2024 Pain in right toe(s) (ICD-10 - M79.674) 07/11/2024 Onychomycosis (ICD-10 - B35.1) 02/15/2024 Pain in left toe(s) (ICD-10 - M79.675) 07/11/2024 Other hammer toe(s) (acquired), right foot (ICD-10 - M20.41) 07/11/2024 Other hammer toe(s) (acquired), left foot (ICD-10 - M20.42) 02/15/2024 Ingrown nail (ICD-10 - L60.0) 02/15/2024 Pain in left foot (ICD-10 - M79.672) 02/15/2024 Pain in left ankle and joints of left foot (ICD-10 - M25.572) 07/11/2024 Plantar wart (ICD-10 - B07.0) 02/15/2024 Bursitis of left foot (ICD-10 - M77.52) 07/11/2024 Left foot pain (ICD-10 - M79.672) 02/15/2024 Hallux valgus (acquired), left foot (ICD-10 - M20.12) 02/15/2024 Pain in right foot (ICD-10 - M79.671) 02/15/2024 Pain in right ankle and joints of right foot (ICD-10 - M25.571) 02/15/2024 Bursitis of right foot (ICD-10 - M77.51) 02/15/2024 Hallux valgus (acquired), right foot (ICD-10 - M20.11) Plan Of Treatment Pending Test Test Name Order Date 78863-IIFDPCZ NAIL, 6 OR MORE 02/15/2024 60839-PJFMZZX NAIL, 6 OR MORE 07/11/2024 51416-Ukrv Destruction, 1-14 07/11/2024 73399-Tqjiogvv Plate 02/15/2024 Next Appt Details Provider Name:Casper Yoo , 10/10/2024 12:00:00 PM, [address] [place], [address], Insurance Providers Payer Name Payer Address Payer Phone Subscriber Number Group Number Insured Name Patient Relationship to Insured Coverage Start Date Coverage End Date [facility] [employer] Claims [address] [place] [address] [id number] Sue Weir Self - patient is the insured Medical (General) History Medical History History ICD Code Anxiety Back,Hip,and Knee pain CAD (Cholesterol) Depression High Blood Pressure Joint implants/screws
== END 2024-09-24 11:58 | disposition home or self-care (01) ==
PROVIDERS: PCP Internal Medicine; Visit Provider Internal Medicine
DX: S69.91XA Unspecified injury of right wrist, hand and finger(s), initial encounter (principal); S89.92XA Unspecified injury of left lower leg, initial encounter

== ENCOUNTER 2024-09-24 10:59 | Outpatient (REF) | payer OTHER, SELFPAY ==
--- NOTE | ~2024-09-24 | XR_ITS ---
EXAMINATION: XR KNEE, LEFT CLINICAL INFORMATION: S89.92XA - Unspecified injury of left lower leg, initial encounter COMPARISON: 04/27/2021. TECHNIQUE: Two views of the left knee. FINDINGS: No fracture, dislocation, or suspicious bone lesion. Normal bone mineralization. Normal alignment. Mild medial compartment joint space narrowing. Joint spaces otherwise preserved. No evidence of significant joint effusion. Soft tissues appear normal. XR/XR knee LT 2V IMPRESSION: 1. Minimal medial compartment joint space narrowing of the left knee. Otherwise normal exam. Electronically signed by: Donato Bowers MD 09/25/2024 09:18 AM EDT
--- NOTE | ~2024-09-24 | XR_ITS ---
EXAMINATION: XR FINGER, RIGHT CLINICAL INFORMATION: S69.90XA - Unspecified injury of unspecified wrist, hand and finger(s), ... COMPARISON: None available. TECHNIQUE: Three views of the right third digit. FINDINGS: There is mild soft tissue swelling of the third digit. There is overlying bandaging material. There is no third digit bony fracture, dislocation, or suspicious bone lesion. There is normal alignment. No significant arthropathy evident. Mild degenerative change at the first MCP joint noted incidentally. XR/XR finger RT min 2V IMPRESSION: Mild soft tissue swelling of the third digit without underlying acute bony abnormality. Electronically signed by: Donato Bowers MD 09/25/2024 09:21 AM EDT
== END 2024-09-24 11:00 | disposition home or self-care (01) ==
LOC: HO.HMGCX 10:59
PROVIDERS: PCP Internal Medicine; Visit Provider Internal Medicine
DX: S69.91XA Unspecified injury of right wrist, hand and finger(s), initial encounter (principal); S89.92XA Unspecified injury of left lower leg, initial encounter
CPT/HCPCS: 73140; 73560; 99212

== ENCOUNTER → 2024-09-24 12:00 | Outpatient (BNV) | payer OTHER, SELFPAY | PROVIDERS: PCP Internal Medicine; Visit Provider Radiology Diagnostic Radiology | DX: S89.92XA Unspecified injury of left lower leg, initial encounter (principal); S69.90XA Unspecified injury of unspecified wrist, hand and finger(s), initial encounter | CPT/HCPCS: 73140; 73560 ==

== ENCOUNTER 2024-09-26 08:18 | Outpatient (AMB) | payer OTHER, SELFPAY ==
--- OUTSIDE RECORDS SUMMARY | 2024-09-26 08:25 | XMS_ITS | Patient Health Record ---
Author Organization [facility] Address [address] [facility] [place] [address] Care Team Providers Care Automobile Mechanic Motor Name Role Phone Kenzie Stoddard Primary Care Provider Casper Swann Unavailable [phone] Allergies No Known Allergies Reason For Referral [...] Problem Acquired hammer toe of right foot (3186497068987428 ) Other hammer toe(s) (acquired), right foot (M20.41) Active confirmed Problem Acquired hammer toe of left foot (7509904706899727 ) Other hammer toe(s) (acquired), left foot (M20.42) Active confirmed Problem Plantar wart (94039440) Plantar wart (B07.0) Active confirmed Problem Onychomycosis (018892905) Onychomycosis (B35.1) Active confirmed Vital Signs Blood pressure diastolic 63 mm Hg 07/11/2024 Height 5ft 3in in 07/11/2024 Blood pressure systolic 121 mm Hg 07/11/2024 Weight 220 lbs 07/11/2024 BMI 38.97 kg/m2 07/11/2024 Procedures Procedure Date Ordered Date Performed Result Body Sit e 46762-QAWICSP NAIL, 6 OR MORE 02/15/2024 N/A 87059-Isfjrfno Plate 02/15/2024 N/A 66770-ECZWOOT NAIL, 6 OR MORE 07/11/2024 N/A 79666-Eyjy Destruction, 1-14 07/11/2024 N/A Encounters Encounter Location Date Provider Diagnosis [address] [address] 02/15/2024 Casper Yoo Onychomycosis B35.1 ; Pain [...] and Hallux valgus (acquired), right foot M20.[address] [address] 07/11/2024 Casper Yoo Pain in right toe(s) M79.674 ; Onychomycosis B35.1 ; Pain in left toe(s) M79.675 ; Other hammer toe(s) (acquired), right foot M20.41 ; Other hammer toe(s) (acquired), left foot M20.42 ; Plantar wart B07.0 and Left foot pain M79.[address] [address] 05/14/2024 Casper Yoo Assessments Encounter Date Diagnosis [...] Treatment Pending Test Test Name Order Date 97404-MNITEAZ NAIL, 6 OR MORE 02/15/2024 76706-VVGHJXH NAIL, 6 OR MORE 07/11/2024 14157-Pnwu Destruction, 1-14 07/11/2024 16044-Xsvqdxda Plate 02/15/2024 Next Appt Details Provider Name:Casper Yoo , 10/10/2024 12:00:00 PM, [address] [place], [address], Insurance Providers Payer Name Payer Address Payer Phone Subscriber Number Group Number Insured Name Patient Relationship to Insured Coverage Start Date Coverage End Date [facility] [employer] Claims [address] [place] [id number] Sue Weir Self - patient is the insured Medical (General) History Medical History History ICD Code Anxiety Back,Hip,and Knee pain CAD (Cholesterol) Depression High Blood Pressure Joint implants/screws
--- NOTE | 2024-09-26 08:31 | MHC.PC.OV ---
Vital Signs 09/26/24 08:38 Height 5 ft 3 in Weight 220 lb BMI 39.0 BP 110/84 Blood Pressure Location Lt brachial Position Sitting Respiration 16 Pulse 77 Pulse Source Pulse Oximeter Temp 98.3 F Temp Source Oral Pulse Oximetry (%) 95 Oxygen Delivery Method Room Air Intake Visit Reasons: follow up walk in Allergies atorvastatin [Lipitor] Allergy (Unknown, Verified 09/26/24 08:50) Unknown lisinopril Allergy (Unknown, Verified 09/26/24 08:50) Unknown simvastatin Allergy (Unknown, Verified 09/26/24 08:50) Unknown Medication List - Last Reconciled 09/26/24 by Courtney Gamez MD acetaminophen 1,000 mg (2 x 500 mg) PO Q6H PRN ascorbate calcium (vitamin C) 1 g PO .QD cholecalciferol (vitamin D3) 25 mcg PO DAILY clotrimazole 1% 1 appl topical BID cyanocobalamin (vitamin B-12) 1,000 mcg PO DAILY diclofenac sodium 75 mg PO BID 10 days meclizine 25 mg PO TID PRN metoprolol succinate ER 100 mg PO DAILY rosuvastatin 20 mg PO DAILY sertraline 100 mg PO DAILY triamcinolone acetonide 0.5% 1 appl topical BID 14 days vit B complex 100 combo no.2 ER (B-100 Complex ER) tabs PO Tobacco use date assessed: 08/08/24 Dental Screening Dental Screen Date: 05/01/24 HPI follow up walk in [facility] Details transcation ID [id number] Indonesian interpretor Fanny Jaramillo [id number] Patient came in today for a follow-up visit after having injury to her right middle finger distal joint and left knee We prescribed diclofenac as it with the patient but she never picked up from the pharmacy and continued to have the pain X-ray showed no fractures She has osteoarthritis left knee Visit was conducted with the help of executive assistant to president I will be referring her to a hand specialist for her right middle finger injury and swelling And for her knee I have ordered physical therapy Once again patient was instructed to pickling grader the medication and take it with food 12 hours apart Follow up with the primary care [facility] Medical History Left renal stone Well woman exam Vertigo Hypercholesterolemia Low back pain Postmenopausal bleeding Carpal tunnel syndrome Impaired glucose tolerance Anxiety and depression Hypertension Obesity Surgical History History of foot surgery History of tonsillectomy History of tubal ligation Family History Father No problems noted. Mother Skin cancer Breast cancer Paternal Uncle Myocardial infarction Brother No problems noted. Brother No problems noted. Sister No problems noted. Son No problems noted. Son No problems noted. Daughter No problems noted. Social History Household Members: Spouse Housing: Apartment Alcohol intake: never Patient Tobacco Use Status: Never used Tobacco e-Cigarette/Vaping Use: Never Used Second Hand Smoke Exposure: No service: No Current occupational status: unemployed Current occupational exposures/hazards: No Sexual orientation: Straight/Heterosexual Gender identity: Female Cognitive needs: No Hearing needs: No Vision needs: Yes Female Reproductive History Menstrual Age of Menarche: 13 Questionnaire Thrive Questionnaire Date Thrive assessed: 08/08/24 I am a: Patient What is your living situation today?: I have a steady place to live Within the past 12 months, did the food you bought not last and you didn't have the money to get more?: I choose not to answer this question Within the past 12 months, did you worry whether your food would run out before you got money to buy more?: I choose not to answer this question Do you have trouble paying for medicines?: No Do you have trouble getting transportation to medical appointments?: No Do you have trouble paying your heating and electricity bill?: No Do you have trouble taking care of your child, family member or friend?: No Do you have trouble with day-to-day activities such as bathing, preparing meals, shopping, managing finances, etc.?: No Are you currently unemployed and looking for a job?: No Are you interested in more education?: No Please select the resources that you would like help with: None Currently or been in a relationship where the following occur: No concerns reported THRIVE Score: 0 ABBY-7 AMB Questionnaire ABBY-7 Date ABBY - 7 assessed: 08/08/24 Source: Developed by Drs. Don Gallego, Pooja Carrasco, Antonio Wheatley and colleagues, with an educational kehinde from [employer]. Review of Systems Const All systems reviewed & are unremarkable except as noted in HPI and below Physical exam (Primary Care) Vital Signs: Last Vital Signs Temp 98.3 F 09/26/24 08:38 Pulse 77 09/26/24 08:38 Resp 16 09/26/24 08:38 BP 110/84 09/26/24 08:38 Pulse Ox 95 09/26/24 08:38 Oxygen Delivery Method Room Air 09/26/24 08:38 BMI result Body Mass Index 39.0 Tobacco/Smoking Status: Tobacco use Status Tobacco use date assessed 08/08/24 09/26/24 08:32 Patient Tobacco Use Status Never used Tobacco 09/26/24 08:32 e-Cigarette/Vaping Use Never Used 09/26/24 08:32 Thrive Assessment: Date of Thrive Assessment Date Thrive assessed 08/08/24 09/26/24 08:32 Currently or been in a relationship where the following occur: No concerns reported Const General: no acute distress Orientation/consciousness: patient oriented x3 Eyes General: appearance normal, both eyes and all related structures Resp Effort & Inspection: normal respiratory effort and able to speak in complete sentences Neuro General: patient oriented x3 Extrem Elbow/forearm/wrist images: 1. Superficial skin abrasion healing well, no swelling range of motion intact tender on the sides bilaterally Hand/finger images: 1. Swelling without erythema sensory intact range of motion limited secondary to swelling and pain Psych Mental Status: mental status grossly normal Coding Level of Care Code Est Pt Level 3 (73671) Diagnoses Injury of left knee, initial encounter S89.92XA Encounter type: initial encounter Injury of finger of right hand, initial encounter S69.91XA Encounter type: initial encounter Laterality: right Assessment & Plan Assessment & Plan (1) Left knee injury: Code(s): S89.92XA - Unspecified injury of left lower leg, initial encounter Category: Medical Qualifiers: Encounter type: initial encounter Qualified Code(s): S89.92XA - Unspecified injury of left lower leg, initial encounter (2) Injury, finger: Code(s): S69.90XA - Unspecified injury of unspecified wrist, hand and finger(s), initial encounter Category: Medical Qualifiers: Encounter type: initial encounter Laterality: right Qualified Code(s): S69.91XA - Unspecified injury of right wrist, hand and finger(s), initial encounter Plan transcation ID [id number] Indonesian interpretor Fanny Jaramillo [id number] Patient came in today for a follow-up visit after having injury to her right middle finger distal joint and left knee [ see my last note for more detail] We prescribed diclofenac as it with the patient but she never picked up from the pharmacy and continued to have the pain X-ray showed no fractures She has osteoarthritis left knee Visit was conducted with the help of executive assistant to president I will be referring her to a hand specialist for her right middle finger injury and swelling And for her knee I have ordered physical therapy Once again patient was instructed to pickling grader the medication and take it with food 12 hours apart Follow up with the primary care Orders: Orders PT Evaluation and Treatment Today S89.92XA - Unspecified injury of left lower leg, initial encounter Referrals Hand Surgery Referral S69.91XA - Unspecified injury of right wrist, hand and finger(s), initial encounter Medications: Refilled diclofenac sodium 75 mg PO BID 10 days 20 tabs 0RF pain
[2024-09-26 08:38] VITALS: BP 110/84; PULSE 77; RESP 16; TEMP 36.8; O2SAT 95; BMI 39.0
== END 2024-09-26 09:46 | disposition home or self-care (01) ==
LOC: HO.HMCC 08:19
PROVIDERS: PCP Internal Medicine; Visit Provider Internal Medicine
DX: S89.92XA Unspecified injury of left lower leg, initial encounter (principal); S69.91XA Unspecified injury of right wrist, hand and finger(s), initial encounter

== ENCOUNTER → 2024-09-26 08:18 | Outpatient (BNVA) | payer OTHER, SELFPAY | PROVIDERS: PCP Internal Medicine; Visit Provider Internal Medicine | DX: S89.92XD Unspecified injury of left lower leg, subsequent encounter (principal); S69.91XD Unspecified injury of right wrist, hand and finger(s), subsequent encounter; X58.XXXD Exposure to other specified factors, subsequent encounter | CPT/HCPCS: 99212 ==

== ENCOUNTER 2024-11-11 10:35 | Outpatient (AMB) | payer OTHER, SELFPAY ==
[2024-11-11 11:03] VITALS: BP 142/66; PULSE 67; TEMP 36.8; O2SAT 96; BMI 39.1
--- NOTE | 2024-11-11 11:03 | MHC.OFFWIV ---
Intake Vital Signs 11/11/24 11:03 11/11/24 11:25 Height 5 ft 3 in Weight 221 lb BMI 39.1 BP 142/66 H 128/68 Blood Pressure Location Rt brachial Rt brachial Position Sitting Sitting Pulse 67 Pulse Source Pulse Oximeter Temp 98.2 F Temp Source Oral Pulse Oximetry (%) 96 Oxygen Delivery Method Room Air Intake Visit Reasons: EP severe lower back pain Intake Note: presents with low back pain for 4 days Patient Tobacco Use Status: Never used Tobacco Cabinet Builder Required: Yes Cabinet Builder Language: Portuguese Allergies atorvastatin (Lipitor) Allergy (Unknown, Verified 11/11/24 11:18) Unknown lisinopril Allergy (Unknown, Verified 11/11/24 11:18) Unknown simvastatin Allergy (Unknown, Verified 11/11/24 11:18) Unknown Medication List - Last Reconciled 11/11/24 by REYMUNDO May-OUMAR acetaminophen 1,000 mg (2 x 500 mg) PO Q6H PRN ascorbate calcium (vitamin C) 1 g PO .QD cholecalciferol (vitamin D3) 25 mcg PO DAILY clotrimazole 1% 1 appl topical BID cyanocobalamin (vitamin B-12) 1,000 mcg PO DAILY diclofenac sodium 75 mg PO BID 10 days meclizine 25 mg PO TID PRN metoprolol succinate ER 100 mg PO DAILY rosuvastatin 20 mg PO DAILY sertraline 100 mg PO DAILY triamcinolone acetonide 0.5% 1 appl topical BID 14 days vit B complex 100 combo no.2 ER (B-100 Complex ER) tabs PO Do you need a note to return to daycare/school/sports/work: No HPI HPI Comments History of Present Illness 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 Denies red flags assoc w/ low back pain. Hx of lumbar spine OA, last xray 2021, see results below HTN - BP elevated on initial intake; Recheck done by myself WNL. Exam awake alert nad atraumatic PERRLA, EOMI Neck FROM No CVAT No spinal tenderness, paraspinal muscle spasms bilat lumbar spine, negative SLR bilat, normal strength, tone and reflexes. Peripheral pulses intact bilat Plan: Baclofen TID prn OTC apap 1000mg BID Supportive Care Gentle stretching and exercise If cont, f/u with PCP RTO edu provided Total time spent caring for the patient today was 40 minutes. This includes time spent before the visit reviewing the chart, time spent during the visit, and time spent after the visit on documentation, reviewing laboratory results, diagnostic imaging, medications, performing a medically necessary evaluation, counseling on diagnoses, care coordination, ordering appropriate tests, ordering appropriate medications, review of tests performed by other providers, reporting test results with the patient, communication with other healthcare providers [facility] Medical History Left renal stone Well woman exam Vertigo Hypercholesterolemia Low back pain Postmenopausal bleeding Carpal tunnel syndrome Impaired glucose tolerance Anxiety and depression Hypertension Obesity Surgical History History of foot surgery History of tonsillectomy History of tubal ligation Family History Father No problems noted. Mother Skin cancer Breast cancer Paternal Uncle Myocardial infarction Brother No problems noted. Brother No problems noted. Sister No problems noted. Son No problems noted. Son No problems noted. Daughter No problems noted. Social History Household Members: Spouse Housing: Apartment Alcohol intake: never Patient Tobacco Use Status: Never used Tobacco e-Cigarette/Vaping Use: Never Used Second Hand Smoke Exposure: No service: No Current occupational status: unemployed Current occupational exposures/hazards: No Sexual orientation: Straight/Heterosexual Gender identity: Female Cognitive needs: No Hearing needs: No Vision needs: Yes Female Reproductive History Menstrual Age of Menarche: 13 Physical Exam Vital Signs: Last Vital Signs Temp 98.2 F 11/11/24 11:03 Pulse 67 11/11/24 11:03 BP 142/66 H 11/11/24 11:03 Pulse Ox 96 11/11/24 11:03 Oxygen Delivery Method Room Air 11/11/24 11:03 BMI result Body Mass Index 39.1 Results Reviewed Results Reviewed: 2021 XR/XR lumbar spine 2-3V IMPRESSION: Mild ventral spondylosis L1-L2 and L2-L3 disc levels. Otherwise unremarkable lumbar spine exam. Assessment & Plan Assessment & Plan (1) Hypertension: Code(s): I10 - Essential (primary) hypertension Qualifiers: Hypertension type: essential hypertension Qualified Code(s): I10 - Essential (primary) hypertension (2) Low back pain: Code(s): M54.50 - Low back pain, unspecified Qualifiers: Chronicity: acute Back pain laterality: bilateral Sciatica presence: without sciatica Qualified Code(s): M54.50 - Low back pain, unspecified (3) Spasm of muscle of lower back: Code(s): M62.830 - Muscle spasm of back Plan . Medications: New baclofen 10 mg PO TID PRN 15 tabs 0RF muscle spasm Coding Level of Care Code Est Pt Level 5 (35145) Diagnoses Essential hypertension I10 Hypertension type: essential hypertension Acute bilateral low back pain without sciatica M54.50 Chronicity: acute Back pain laterality: bilateral Sciatica presence: without sciatica Spasm of muscle of lower back M62.830
[2024-11-11 11:25] VITALS: BP 128/68
--- OUTSIDE RECORDS SUMMARY | 2024-11-11 11:45 | XMS_ITS | Patient Health Record ---
Author Organization [facility] Address [address] [place] [address] Care Team Providers Care Financial Foundations Representative Name Role Phone Kenzie Stoddard Primary Care Provider Casper Swann Unavailable [phone] Allergies No Known Allergies Reason For Referral No Information Medications Medication SIG (Take, Route, Frequency, Duration) Notes Start Date End Date Status Orthopedic Extra Depth Shoes With Custom Heat Molded Multidensity Innersoles 1 Pair shoes with 3 Pair custom heat molded innersoles Wear Daily; Duration: 365 days 07/11/2024 Active Metoprolol Succinate 100 MG 1 capsule Or ally Once a day Active Zoloft 100 MG 1 tablet Orally Once a day Active Ammonium Lactate 12 % 1 application Exte rnally to affected areas of dry skin to feet except for between the toes Twice a day; Duration: 30 days Active Immunizations Vaccine Route Administration Date Status Comme nts Influenza Unknown 01/22/2024 Administered Social History Tobacco Use: Social History Observation Description Date Details (start date - stop date) Never Smoker NA - NA Tobacco use other than smoking: Question Answer Notes Are you an other tobacco user? No Tobacco Control (Standard) Question Answer Notes Tobacco use: Nonsmoker Additional Findings: Tobacco non-user Current no nsmoker AUDIT-C (Standard) Question Answer Notes Did you have a drink containing alcohol in the p ast year? No Points 0 Interpretation Negative Problems Problem Type SNOMED Code ICD Code Onset Dates Problem Status W/U Status Risk Notes Problem Plantar wart (21904414) Plantar wart (B07.0) Active confirmed Problem Onychomycosis (898742745) Onychomycosis (B35.1) Active confirmed Vital Signs Blood pressure diastolic 65 mm Hg 10/10/2024 Height 5ft 3in in 10/10/2024 Blood pressure systolic 128 mm Hg 10/10/2024 Weight 220 lbs 10/10/2024 BMI 38.97 kg/m2 10/10/2024 Procedures Procedure Date Ordered Date Performed Result Body Sit e 09983-KQARWHP NAIL, 6 OR MORE 02/15/2024 N/A 53802-Hjadcknd Plate 02/15/2024 N/A 27364-JPOETVZ NAIL, 6 OR MORE 07/11/2024 N/A 14866-Fhim Destruction, 1-07/11/2024 N/A 23793-LJINIOG NAIL, 6 OR MORE 10/10/2024 N/A 15884-Iawb Destruction, 1-10/10/2024 N/A Encounters Encounter Location Date Provider Diagnosis [address] [address] 02/15/2024 Casper Yoo Onychomycosis B35.1 ; Pain [...] and Hallux valgus (acquired), right foot M20.[address] [address] 07/11/2024 Casper Yoo Pain in right toe(s) M79.674 ; Onychomycosis B35.1 ; Pain in left toe(s) M79.675 ; Other hammer toe(s) (acquired), right foot M20.41 ; Other hammer toe(s) (acquired), left foot M20.42 ; Plantar wart B07.0 and Left foot pain M79.672 [facility] [address] [address] 10/10/2024 Casper Yoo Pain in right toe(s) M79.674 ; Pain in left toe(s) M79.675 ; Onychomycosis B35.1 ; Plantar wart B07.0 ; Left foot pain M79.672 and Xerosis of skin L85.3 [facility] [address] 05/14/2024 Casper Yoo Assessments Encounter Date Diagnosis (ICD Code) Assessment Notes Treatment Notes Treatment Clinical Notes Section Notes 02/15/2024 Onychomycosis (ICD-10 - B35.1) 07/11/2024 Pain in right toe(s) (ICD-10 - M79.674) 10/10/2024 Pain in right toe(s) (ICD-10 - M79.674) 07/11/2024 Onychomycosis (ICD-10 - B35.1) 10/10/2024 Pain in left toe(s) (ICD-10 - M79.675) 10/10/2024 Onychomycosis (ICD-10 - B35.1) 07/11/2024 Pain in left toe(s) (ICD-10 - M79.675) 02/15/2024 Pain in right toe(s) (ICD-10 - M79.674) 02/15/2024 Pain in left toe(s) (ICD-10 - M79.675) 07/11/2024 Other hammer toe(s) (acquired), right foot (ICD-10 - M20.41) 10/10/2024 Plantar wart (ICD-10 - B07.0) 10/10/2024 Left foot pain (ICD-10 - M79.672) 07/11/2024 Other hammer toe(s) (acquired), left foot (ICD-10 - M20.42) 02/15/2024 Ingrown nail (ICD-10 - L60.0) 02/15/2024 Pain in left foot (ICD-10 - M79.672) 02/15/2024 Pain in left ankle and joints of left foot (ICD-10 - M25.572) 07/11/2024 Plantar wart (ICD-10 - B07.0) 02/15/2024 Bursitis of left foot (ICD-10 - M77.52) 07/11/2024 Left foot pain (ICD-10 - M79.672) 10/10/2024 Xerosis of skin (ICD-10 - L85.3) 02/15/2024 Hallux valgus (acquired), left foot (ICD-10 - M20.12) 02/15/2024 Pain in right foot (ICD-10 - M79.671) 02/15/2024 Pain in right ankle and joints of right foot (ICD-10 - M25.571) 02/15/2024 Bursitis of right foot (ICD-10 - M77.51) 02/15/2024 Hallux valgus (acquired), right foot (ICD-10 - M20.11) Plan Of Treatment Pending Test Test Name Order Date 25318-FXDFBFP NAIL, 6 OR MORE 02/15/2024 38008-SJOYJHN NAIL, 6 OR MORE 07/11/2024 56445-CLOQRAF NAIL, 6 OR MORE 10/10/2024 62429-Nbaj Destruction, 1-14 10/10/2024 06987-Kcrr Destruction, 1-14 07/11/2024 81543-Iedksfgw Plate 02/15/2024 Next Appt Details Provider Name:Casper Nati LouFredo , 01/16/2025 12:00:00 PM, [address] [place], [address], Insurance Providers Payer Name Payer Address Payer Phone Subscriber Number Group Number Insured Name Patient Relationship to Insured Coverage Start Date Coverage End Date [facility] [employer] Claims [address] [place] [phone] [id number] Sue Weir Self - patient is the insured Medical (General) History Medical History History ICD Code Anxiety Back,Hip,and Knee pain CAD (Cholesterol) Depression High Blood Pressure Joint implants/screws
== END 2024-11-11 11:34 | disposition home or self-care (01) ==
PROVIDERS: PCP Internal Medicine; Visit Provider Nurse Practitioner Family
DX: I10 Essential (primary) hypertension (principal); M54.50 Low back pain, unspecified; M62.830 Muscle spasm of back

== ENCOUNTER → 2024-11-11 10:35 | Outpatient (BNVA) | payer OTHER, SELFPAY | PROVIDERS: PCP Internal Medicine; Visit Provider Nurse Practitioner Family | DX: I10 Essential (primary) hypertension (principal); M54.50 Low back pain, unspecified; M62.830 Muscle spasm of back | CPT/HCPCS: 99212 ==

== ENCOUNTER 2024-11-17 13:05 | Outpatient (REF) | payer OTHER, SELFPAY ==
--- NOTE | ~2024-11-17 | XR_ITS ---
EXAMINATION: XR HAND 3 OR MORE VIEWS RIGHT HISTORY: M79.641 - Pain in right hand COMPARISON: Comparison is made with the prior examination dated 09/24/2024. FINDINGS: Three views of the right hand are submitted. Osseous mineralization is normal. There is no fracture or dislocation. There is a probable erosion involving the volar aspect of the base of the distal phalanx of the middle finger. The joint spaces are preserved. The soft tissues are unremarkable. XR/XR hand RT min 3V IMPRESSION: Probable erosion involving the volar aspect of the base of the distal phalanx of the middle finger. No evidence of fracture. Electronically signed by: Don Hernandez MD 11/17/2024 02:10 PM EDT
== END 2024-11-17 13:06 | disposition home or self-care (01) ==
LOC: HO.HOSX 13:05
PROVIDERS: PCP Internal Medicine
DX: S62.632A Displaced fracture of distal phalanx of right middle finger, initial encounter for closed fracture (principal); M79.641 Pain in right hand; M79.644 Pain in right finger(s); W19.XXXA Unspecified fall, initial encounter
CPT/HCPCS: 73130; 99212

== ENCOUNTER 2024-11-17 13:05 | Outpatient (AMB) | payer OTHER, SELFPAY ==
--- OUTSIDE RECORDS SUMMARY | 2024-11-17 13:46 | XMS_ITS | Patient Health Record ---
Author Organization [facility] Address [address] [place] [address] Care Team Providers Care Director State Pharmacy Name Role Phone Kenzie Stoddard Primary Care Provider Casper Swann Unavailable [phone] Allergies No Known Allergies Reason For Referral [...] W/U Status Risk Notes Problem Plantar wart (16259425) Plantar wart (B07.0) Active confirmed Problem Onychomycosis (424183963) Onychomycosis (B35.1) Active confirmed Vital Signs Blood pressure diastolic 65 mm Hg 10/10/2024 Height 5ft 3in in 10/10/2024 Blood pressure systolic 128 mm Hg 10/10/2024 Weight 220 lbs 10/10/2024 BMI 38.97 kg/m2 10/10/2024 Procedures Procedure Date Ordered Date Performed Result Body Sit e 59267-YCQBSZE NAIL, 6 OR MORE 02/15/2024 N/A 54333-Jcsmelbk Plate 02/15/2024 N/A 37261-CATOJKB NAIL, 6 OR MORE 07/11/2024 N/A 81948-Dzji Destruction, 1-07/11/2024 N/A 27370-UVQUFPX NAIL, 6 OR MORE 10/10/2024 N/A 47321-Mmdu Destruction, 1-10/10/2024 N/A Encounters Encounter Location Date Provider Diagnosis [address] [address] 02/15/2024 Casper Yoo Onychomycosis B35.1 ; Pain [...] and Hallux valgus (acquired), right foot M20.[address] [address] 07/11/2024 Casper Yoo Pain in right toe(s) M79.674 ; Onychomycosis B35.1 ; Pain in left toe(s) M79.675 ; Other hammer toe(s) (acquired), right foot M20.41 ; Other hammer toe(s) (acquired), left foot M20.42 ; Plantar wart B07.0 and Left foot pain M79.672 [facility] [address] [address] 10/10/2024 Casper Yoo Pain in right toe(s) M79.674 ; Pain in left toe(s) M79.675 ; Onychomycosis B35.1 ; Plantar wart B07.0 ; Left foot pain M79.672 and Xerosis of skin L85.3 [facility] [address] 05/14/2024 Casper Yoo Assessments Encounter Date Diagnosis [...] Treatment Pending Test Test Name Order Date 62156-PBAFJQV NAIL, 6 OR MORE 02/15/2024 08415-AAKVOCF NAIL, 6 OR MORE 07/11/2024 86669-IYMREJS NAIL, 6 OR MORE 10/10/2024 71754-Ttgo Destruction, 1-14 10/10/2024 50455-Qakc Destruction, 1-14 07/11/2024 36175-Babyfipy Plate 02/15/2024 Next Appt Details Provider Name:Casper Nati LouFredo , 01/16/2025 12:00:00 PM, [address] [place], [address], Insurance Providers Payer Name Payer Address Payer Phone Subscriber Number Group Number Insured Name Patient Relationship to Insured Coverage Start Date Coverage End Date [facility] [employer] Claims [address] [place] [id number] [phone] [id number] Sue Weir Self - patient is the insured Medical (General) History Medical History History ICD Code Anxiety Back,Hip,and Knee pain CAD (Cholesterol) Depression High Blood Pressure Joint implants/screws
[2024-11-17 13:52] VITALS: BMI 39.1
--- NOTE | 2024-11-17 13:52 | MHC.OFFVIS ---
Vital Signs 11/17/24 13:52 Height 5 ft 3 in Weight 221 lb BMI 39.1 Intake Visit Reasons: New Prob-RT MF distal phalanx, ~ Aug, 2024 Intake Note: Sue is a 69 year old right hand dominant woman who presents today for a new evaluation of an injury to the right middle finger distal phalanx, DOI: ~Aug, 2024. Patient states she took a fall, landing on her knees, apparently injuring her hand with the plate of food she had in her hands. Denies numbness and tingling. She complains today of pain at the DIP joint, feels like it is crooked . Patient states the swelling has gone down. She feels like she does not have the strength to carry things with the right middle finger. She also complains of right index finger locking and catching. Denies surgeries or injuries to the right hand. Project Manager Interior Design Required: Yes Project Manager Interior Design Language: National Sales Executive Services: Project Manager Interior Design Present Project Manager Interior Design Name: LUANNE Kenyon/SONIA Allergies atorvastatin (Lipitor) Allergy (Unknown, Verified 11/17/24 14:00) Unknown lisinopril Allergy (Unknown, Verified 11/17/24 14:00) Unknown simvastatin Allergy (Unknown, Verified 11/17/24 14:00) Unknown HPI HPI New Prob-RT MF distal phalanx, ~ Aug, 2024: Details: Sue is a 69 year old right hand dominant woman who presents today for a new evaluation of an injury to the right middle finger distal phalanx, DOI: ~Aug, 2024. Patient states she took a fall, landing on her knees, apparently injuring her hand with the plate of food she had in her hands. Denies numbness and tingling. She complains today of pain at the DIP joint, feels like it is crooked . Patient states the swelling has gone down. She feels like she does not have the strength to carry things with the right middle finger. She also complains of right index finger locking and catching. Denies surgeries or injuries to the right hand. [facility] Medical History Left renal stone Well woman exam Vertigo Hypercholesterolemia Low back pain Postmenopausal bleeding Carpal tunnel syndrome Impaired glucose tolerance Anxiety and depression Hypertension Obesity Surgical History History of foot surgery History of tonsillectomy History of tubal ligation Family History Father No problems noted. Mother Skin cancer Breast cancer Paternal Uncle Myocardial infarction Brother No problems noted. Brother No problems noted. Sister No problems noted. Son No problems noted. Son No problems noted. Daughter No problems noted. Social History (Updated 11/17/24 @ 14:02 by LUANNE Melara) Household Members: Spouse Housing: Apartment Alcohol intake: never Patient Tobacco Use Status: Never used Tobacco e-Cigarette/Vaping Use: Never Used Second Hand Smoke Exposure: No service: No Current occupational status: unemployed Current occupation: rt handed Current occupational exposures/hazards: No Sexual orientation: Straight/Heterosexual Gender identity: Female Cognitive needs: No Hearing needs: No Vision needs: Yes Female Reproductive History Menstrual Age of Menarche: 13 Review of Systems Const All systems reviewed & are unremarkable except as noted in HPI and below Physical Exam Vital Signs: BMI result Body Mass Index 39.1 Extrem Other: Patient is alert, oriented, and in no acute distress. Neuro: Normal sensation of the tips of all digits of the right hand at this time Vascular: Cap refill brisk Pain: Minimal tenderness to palpation about the DIP joint of left middle finger Discomfort with range of motion of the DIP joint of the left middle finger ROM: Patient is able to make a closed fist with the left middle finger There is an proximally 10 degree extensor lag of the DIP joint of the left middle finger Skin: No lacerations or abrasions. General: No ecchymosis, erythema, or evidence of infection. Psych: Appears grossly normal Affect normal Attitude cooperative Office Procedures AMB Fracture Care Fracture Billing Code: Fracture Billing Code Results Reviewed Results Reviewed: X-rays obtained in the office today and independently reviewed by me, Osmany Acosta PA-C, demonstrate nondisplaced tiny healing fracture of distal phalanx of right middle finger. Assessment & Plan Assessment & Plan (1) Closed fracture of distal phalanx of right middle finger: Code(s): S62.632A - Displaced fracture of distal phalanx of right middle finger, initial encounter for closed fracture Category: Medical Plan 1. Right middle finger distal phalanx fracture 2. Questionable mallet deformity of right middle finger Patient is educated about these conditions Patient is educated about the typical recovery course At this time, patient is offered finger splints for treatment of her mallet deformity, however the patient is also educated that her mallet deformity is well within the acceptable range, and splinting may not granted her any additional extension Patient states that she is entirely satisfied with her current range of motion, and would not like to proceed with splinting Patient is educated that her fracture is very tiny, and requires no further immobilization, especially given the fact that the fracture is approximately 8-week-old Patient understands this in his amenable to this plan Activity as tolerated Follow-up as needed Orders: Orders XR hand RT min 3V Today M79.641 - Pain in right hand Coding Level of Care Code Est Pt Level 3 (30900) Diagnoses Closed fracture of distal phalanx of right middle finger S62.632A CPT Codes Fracture Care - Fracture Billing Code: Fracture Billing Code ([id number])
== END 2024-11-17 14:24 | disposition home or self-care (01) ==
PROVIDERS: PCP Internal Medicine
DX: S62.632A Displaced fracture of distal phalanx of right middle finger, initial encounter for closed fracture (principal)
CPT/HCPCS: 99213

== ENCOUNTER → 2024-11-17 13:42 | Outpatient (BNV) | payer OTHER, SELFPAY | PROVIDERS: PCP Internal Medicine; Visit Provider Radiology Diagnostic Radiology | DX: M79.641 Pain in right hand (principal) | CPT/HCPCS: 73130 ==

== ENCOUNTER 2025-02-09 12:43 | Outpatient (AMB) | payer OTHER, SELFPAY ==
[2025-02-09 13:12] VITALS: BP 140/84; PULSE 66; TEMP 36.3; O2SAT 98; BMI 38.9
--- NOTE | 2025-02-09 13:12 | A.OFFPC_ITS ---
Vital Signs 02/09/25 13:12 Height 5 ft 3 in Weight 219 lb 8 oz BMI 38.9 BP 140/84 H Blood Pressure Location Lt brachial Position Sitting Pulse 66 Pulse Source Pulse Oximeter Temp 97.3 F Temp Source Temporal Artery Scan Pulse Oximetry (%) 98 Oxygen Delivery Method Room Air Intake Visit Reasons: HTN , Hypercholesterol Clay Pigeon Setter Required: Yes Clay Pigeon Setter Language: Japanese Allergies atorvastatin (Lipitor) Allergy (Unknown, Verified 02/09/25 13:54) Unknown lisinopril Allergy (Unknown, Verified 02/09/25 13:54) Unknown simvastatin Allergy (Unknown, Verified 02/09/25 13:54) Unknown Medication List - Last Reconciled 02/09/25 by Kenzie Stoddard MD acetaminophen 1,000 mg (2 x 500 mg) PO Q6H PRN ascorbate calcium (vitamin C) 1 g PO .QD baclofen 10 mg PO TID PRN cholecalciferol (vitamin D3) 25 mcg PO DAILY cyanocobalamin (vitamin B-12) 1,000 mcg PO DAILY diclofenac sodium 75 mg PO BID 10 days econazole nitrate 1% 1 appl topical BID hydroxyzine HCl 25 mg PO BEDTIME meclizine 25 mg PO TID PRN metoprolol succinate ER 100 mg PO DAILY rosuvastatin 20 mg PO DAILY sertraline 100 mg PO DAILY triamcinolone acetonide 0.5% 1 appl topical BID 14 days vit B complex 100 combo no.2 ER (B-100 Complex ER) tabs PO Tobacco use date assessed: 02/09/25 Fall risk assessment: 1 Fall in past year Last assessed Fall Risk: 02/09/25 Dental Screening Dental Screen Date: 02/09/25 Did you have a dental visit in the last 12 months?: Yes Did you have a dental problem in the last 6 months where you did not have access to dental care?: No Was dental information given to patient?: Patient has dentist HPI HTN , Hypercholesterol HPI Details Devin [id number] states fall - snow first, states slippery on socks PFSH Medical History Left renal stone Well woman exam Vertigo Hypercholesterolemia Low back pain Postmenopausal bleeding Carpal tunnel syndrome Impaired glucose tolerance Anxiety and depression Hypertension Obesity Surgical History History of foot surgery History of tonsillectomy History of tubal ligation Family History Father No problems noted. Mother Skin cancer Breast cancer Paternal Uncle Myocardial infarction Brother No problems noted. Brother No problems noted. Sister No problems noted. Son No problems noted. Son No problems noted. Daughter No problems noted. Social History Household Members: Spouse Housing: Apartment Alcohol intake: never Patient Tobacco Use Status: Never used Tobacco e-Cigarette/Vaping Use: Never Used Second Hand Smoke Exposure: No service: No Current occupational status: unemployed Current occupation: rt handed Current occupational exposures/hazards: No Sexual orientation: Straight/Heterosexual Gender identity: Female Cognitive needs: No Hearing needs: No Vision needs: Yes Female Reproductive History Menstrual Age of Menarche: 13 Questionnaire PHQ-9 Over the last 2 weeks, how often have you been bothered by any of the following problems? 1. Little interest or pleasure in doing things: several days 2. Feeling down, depressed, or hopeless: several days 3. Trouble falling or staying asleep, or sleeping too much: several days 4. Feeling tired or having little energy: several days 5. Poor appetite or overeating: nearly every day 6. Feeling bad about yourself - or that you are a failure or have let yourself or your family down: not at all 7. Trouble concentrating on things, such as reading the newspaper or watching television: not at all 8. Moving or speaking so slowly that other people could have noticed. Or the opposite - being so fidgety or restless that you have been moving around a lot more than usual: not at all 9. Thoughts that you would be better off or of hurting yourself in some way: not at all Total score: 7 Depression Screening Interpretation: Positive Depression Screening Done: Yes Source: Developed by Drs. Don Gallego, Pooja Carrasco, Antonio Wheatley and colleagues, with an educational kehinde from [employer]. Thrive Questionnaire Date Thrive assessed: 08/08/24 I am a: Patient What is your living situation today?: I have a steady place to live Within the past 12 months, did the food you bought not last and you didn't have the money to get more?: I choose not to answer this question Within the past 12 months, did you worry whether your food would run out before you got money to buy more?: I choose not to answer this question Do you have trouble paying for medicines?: No Do you have trouble getting transportation to medical appointments?: No Do you have trouble paying your heating and electricity bill?: No Do you have trouble taking care of your child, family member or friend?: No Do you have trouble with day-to-day activities such as bathing, preparing meals, shopping, managing finances, etc.?: No Are you currently unemployed and looking for a job?: No Are you interested in more education?: No Please select the resources that you would like help with: None Currently or been in a relationship where the following occur: No concerns reported THRIVE Score: 0 AUDIT C Alcohol Use Questionnaire (AUDIT-C) 1. How often do you have a drink containing alcohol?: Never 3. How often do you have six or more drinks on one occasion?: Never Total Score: 0 ABBY-7 AMB Questionnaire ABBY-7 Date ABBY - 7 assessed: 08/08/24 Feeling nervous, anxious, or on edge: 0 = Not at all Not being able to stop or control worryin = Not at all Worrying too much about different things: 0 = Not at all Trouble relaxin = Not at all Being so restless that it is hard to sit still: 0 = Not at all Becoming easily annoyed or irritable: 0 = Not at all Feeling afraid as if something awful might happen: 0 = Not at all Total ABBY-7 score (0-4 normal; 5-9 mild; 10-14 moderate; 15-21 severe): 0 Source: Developed by Drs. Don Gallego, Pooja Carrasco, Antonio Wheatley and colleagues, with an educational kehinde from [employer]. Physical exam (Primary Care) Vital Signs: Last Vital Signs Temp 97.3 F 02/09/25 13:12 Pulse 66 02/09/25 13:12 BP 140/84 H 02/09/25 13:12 Pulse Ox 98 02/09/25 13:12 Oxygen Delivery Method Room Air 02/09/25 13:12 BMI result Body Mass Index 38.9 Tobacco/Smoking Status: Tobacco use Status Tobacco use date assessed 02/09/25 02/09/25 13:14 Patient Tobacco Use Status Never used Tobacco 02/09/25 13:14 e-Cigarette/Vaping Use Never Used 02/09/25 13:14 PHQ-9: PHQ-9 Score PHQ-9: Total score 7 02/09/25 14:20 Depression Screening Interpretation: Positive Thrive Assessment: Date of Thrive Assessment Date Thrive assessed 08/08/24 02/09/25 13:14 Currently or been in a relationship where the following occur: No concerns reported Const General: alert; No acute distress Eyes Conjunctivae: conjunctivae normal Resp Auscultation: clear to auscultation bilaterally Cardio Rate: regular rate Rhythm: regular rhythm GI Inspection: Yes normal to inspection Extrem General: Yes normal to inspection and No edema Office Procedures Flu Questionnaire Does the patient have a severe egg allergy?: No Does the patient have severe life threatening allergies?: No Does the patient have a fever or illness today?: No Has the patient ever had Guillain-Cassatt Syndrome?: No Has the patient ever had any past reaction to a flu shot?: No Immunizations Fluarix [id number] (PF) 45 mcg (15 mcg x 3)/0.5 mL IM syringe Performing Provider: Kenzie Stoddard MD Performing [facility] [place] Administered by: Verna Lehman CMA on 02/09/25 14:20 Dose Route Admin Location Dispensed Lot Number Expiration Date [employer] 0.5 mL IM Left Deltoid 0.5 mL [id number] 10/20/25 [id number] [employer] VIS Given Date VIS Provided VIS Publication Date 02/09/25 Single Vaccine 24 Eligibility Eligibility Date Funding Source Not [facility] Eligible 02/09/25 Private Coding Level of Care Code Est Pt Level 4 (70777) Complex EM visit Add On G2211 Diagnoses Essential hypertension I10 Hypertension type: essential hypertension Hypercholesterolemia E78.00 Impaired glucose tolerance R73.02 Obesity E66.9 Closed fracture of distal phalanx of right middle finger S62.632A Assessment & Plan Assessment & Plan (1) Hypertension: Code(s): I10 - Essential (primary) hypertension Category: Medical Qualifiers: Hypertension type: essential hypertension Qualified Code(s): I10 - Essential (primary) hypertension Plan: Continue with blood pressure medication on metoprolol 100 mg once a day (2) Hypercholesterolemia: Code(s): E78.00 - Pure hypercholesterolemia, unspecified Category: Medical Plan: Avoid fried foods, chicken skin, eggs, butter margarine, pastries and meat. Be it pork or beef they have a lot of cholesterol on rosuvastatin 20 mg once a day blood work requested (3) Impaired glucose tolerance: Code(s): R73.02 - Impaired glucose tolerance (oral) Category: Medical Plan: Decrease the amount of carbohydrate intake, pasta, bread, rice and potatoes are all sugar and that is aside from all the sweet stuff, remember that fruits are good but they are Sweet also. (4) Obesity: Code(s): E66.9 - Obesity, unspecified Category: Medical Plan: Diet and exercise (5) Closed fracture of distal phalanx of right middle finger: Code(s): S62.632A - Displaced fracture of distal phalanx of right middle finger, initial encounter for closed fracture Category: Medical Plan: Patient has seen ortho conservative management. Plan History of Present Illness The patient is a 69-year-old female presenting for a follow-up visit after her last physical examination in July. She has a history of obesity, impaired glucose tolerance, lumbar spondylosis, hypertension, hypercholesterolemia, and generalized anxiety disorder. Her last colonoscopy was performed in 2019, and her last mammogram was in March. A bone density scan is scheduled for March 2024. In October, the patient experienced a fall, resulting in a right leg injury and a finger fracture. She reports severe lower back pain, for which she was prescribed a muscle relaxant. The patient is currently on metoprolol 100 mg daily for hypertension and rosuvastatin 20 mg daily for hypercholesterolemia. She has been advised to manage her impaired glucose tolerance through diet and exercise. Health Maintenance - Colonoscopy last performed in 2019 - Mammogram last performed in March - Bone density scan scheduled for March 2024 - Blood work requested to monitor liver and kidney function due to medication use - Shingles vaccination planned Social History Review of Systems - Musculoskeletal: Reports right leg pain post-fall, severe lower back pain - Neurological: Denies unsteadiness when walking - Sleep: Reports difficulty sleeping Physical Exam Results Plan Patient was informed and verbally consented to the use of an ambient scribe for clinic note documentation during this visit. 1. Obesity The patient is advised to continue with lifestyle modifications, including diet and exercise, to manage her weight. 2. Impaired Glucose Tolerance Diet and exercise are recommended to manage impaired glucose tolerance. 3. Lumbar Spondylosis The patient reports severe lower back pain, and a muscle relaxant was prescribed for management. 4. Hypertension The patient is to continue metoprolol 100 mg once daily for hypertension management. 5. Hypercholesterolemia The patient is to continue rosuvastatin 20 mg once daily, with blood work requested to monitor liver and kidney function. 6. Generalized Anxiety Disorder The patient is advised to continue current management strategies for generalized anxiety disorder. 7. Right Leg Pain Post-Fall Conservative management is recommended for right leg pain following the fall. 8. Finger Fracture From Fall The patient is advised to follow up with orthopedics for the finger fracture sustained from the fall. Discussion Notes I discussed with the patient the importance of managing her weight through diet and exercise to address obesity and impaired glucose tolerance. We reviewed her medication regimen, including metoprolol for hypertension and rosuvastatin for hypercholesterolemia, and the need for regular blood work to monitor liver and kidney function. I advised her on the risks associated with sleeping medications, especially considering her history of falls, and recommended non- pharmacological approaches to improve sleep. Patient Instructions - Continue metoprolol 100 mg once daily for blood pressure management. - Continue rosuvastatin 20 mg once daily for cholesterol management. - Follow a diet and exercise plan to manage weight and glucose levels. - Schedule follow-up with orthopedics for finger fracture. - Avoid taking off shoes while standing to prevent falls. - Consider non-pharmacological methods to improve sleep quality. Orders: Orders Influenza [id number] Immunization Today Z23 - Encounter for immunization Medications: New hydroxyzine HCl 25 mg PO BEDTIME 20 tabs 0RF
== END 2025-02-09 14:19 | disposition home or self-care (01) ==
LOC: HO.HMCH 12:44
PROVIDERS: PCP Internal Medicine; Visit Provider Internal Medicine
DX: I10 Essential (primary) hypertension (principal); S62.632A Displaced fracture of distal phalanx of right middle finger, initial encounter for closed fracture; E66.9 Obesity, unspecified; Z68.38 Body mass index [BMI] 38.0-38.9, adult; E78.00 Pure hypercholesterolemia, unspecified; R73.02 Impaired glucose tolerance (oral); Z23 Encounter for immunization

== ENCOUNTER → 2025-02-09 12:43 | Outpatient (BNVA) | payer OTHER, SELFPAY | PROVIDERS: PCP Internal Medicine; Visit Provider Internal Medicine | DX: I10 Essential (primary) hypertension (principal); Z23 Encounter for immunization; E78.00 Pure hypercholesterolemia, unspecified; R73.02 Impaired glucose tolerance (oral); E66.9 Obesity, unspecified; Z68.38 Body mass index [BMI] 38.0-38.9, adult; S62.632D Displaced fracture of distal phalanx of right middle finger, subsequent encounter for fracture with routine healing; Z79.899 Other long term (current) drug therapy; Z13.31 Encounter for screening for depression | CPT/HCPCS: 90471; 90656; 96127; 99212 ==

== ENCOUNTER 2025-03-26 10:57 | Outpatient (REF) | payer OTHER, SELFPAY ==
--- OUTSIDE RECORDS SUMMARY | 2024-05-16 08:00 | XMS_ITS ---
Author Organization [facility] Address [address] [place] [id number] Care Team Providers Care Administrative Processor Name Role Phone Kenzie Stoddard Primary Care Provider UnavailCasper Goodman Unavailable [phone] Encounters Encounter Location Date Provider Diagnosis [address] [id number] 05/16/2024 Casper Yoo Plan Of Treatment Next Appt Details Provider Name:Casper Yoo , 05/12/2025 03:30:00 PM, [address] [place] [address], [phone], Progress Notes * Sue WEIRDOB:1955 ( 69 yo F)Acc No.[id number]:05/16/2024 Progress Note Patient: Sue YUAN Provider: Chandni Yoo DPM :1955 A ge:68 Y S ex:Female Date:05/16/2024 Address:[address] [place] [address] [address], [id number] Pcp:Kenzie Stoddard Subjective: * Chief Complaints: * * Medical History: Objective: * Vitals: Assessment: Plan: * Treatment: * Images: * The named appointment provid er may or may not be the originator of this progress note, and it is not deemed complete until electronically signed by the appointment provider. Sign off status: Pending * Provider: Chandni Yoo DPM Date: 0 05/16/2024 Generated for Autumn krishna/Red/Ayush on: 05/27/2024 01:50 PM EST
--- NOTE | ~2025-03-26 | MM_ITS ---
EXAMINATION: MM SCREENING DIGITAL BREAST TOMOSYNTHESIS, BILATERAL CLINICAL INFORMATION: Screening. Asymptomatic. COMPARISON: Mammography: Comparison is made with available priors TECHNIQUE: Digital breast mammography with tomosynthesis is performed in both the craniocaudal and mediolateral oblique views along with computer-aided detection (CAD). FINDINGS: There are scattered areas of fibroglandular density. There are no significant masses, abnormal calcifications, or other abnormalities. MM/MM tomosynthesis screening BI IMPRESSION: No mammographic evidence of malignancy. Patient always has right breast pain. Recommend clinical evaluation if the pain is focal or if deemed clinically significant a diagnostic workup can be ordered and performed. ASSESSMENT: BI-RADS Category 1: Negative RECOMMENDATION: Routine annual mammography screening. 1 year F/U This examination should not preclude the clinical evaluation of a suspicious palpable abnormality. This patient's information was entered into a reminder system with a target due date for their next mammogram. Electronically signed by: Mona Young DO 03/26/2025 01:09 PM [facility]
--- OUTSIDE RECORDS SUMMARY | 2025-03-26 13:50 | XMS_ITS | Patient Health Record ---
Author Organization [facility] Address [address] [place] [address] Care Team Providers Care Senior Project Controls Specialist Name Role Phone Kenzie Stoddard Primary Care Provider Casper Swann Unavailable [phone] Allergies No Known Allergies Reason For Referral No Information Medications Medication SIG (Take, Route, Frequency, Duration) Notes Start Date End Date Status Ammonium Lactate 12 % 1 application Exte rnally to affected areas of dry skin to feet except for between the toes Twice a day; Duration: 30 days Active Orthopedic Extra Depth Shoes With Custom Heat Molded Multidensity Innersoles 1 Pair shoes with 3 Pair custom heat molded innersoles Wear Daily; Duration: 365 days 07/11/2024 Active Zoloft 100 MG 1 tablet Orally Once a day Active Metoprolol Succinate 100 MG 1 capsule Or ally Once a day Active Immunizations Vaccine Route Administration Date Status [...] W/U Status Risk Notes Problem Plantar wart (61569632) Plantar wart (B07.0) Active confirmed Problem Onychomycosis (139839572) Onychomycosis (B35.1) Active confirmed Vital Signs Blood pressure diastolic 80 mm Hg 01/16/2025 Height 5ft 3in in 01/16/2025 Blood pressure systolic 120 mm Hg 01/16/2025 Weight 220 lbs 01/16/2025 BMI 38.97 kg/m2 01/16/2025 Procedures Procedure Date Ordered Date Performed Result Body Sit e 72891-XQSGFGE NAIL, 6 OR MORE 07/11/2024 N/A 35542-Wjiy Destruction, 1-14 07/11/2024 N/A 59454-EVDRBGA NAIL, 6 OR MORE 10/10/2024 N/A 77517-Yvyo Destruction, 1-10/10/2024 N/A 17701-ZLIWIAG NAIL, 6 OR MORE 01/16/2025 N/A 86422-Dsef Destruction, 1-01/16/2025 N/A Encounters Encounter Location Date Provider Diagnosis [address] [address] 07/11/2024 Casper Fredo Pain in right toe(s) M79.674 ; Onychomycosis B35.1 ; Pain in left toe(s) M79.675 ; Other hammer toe(s) (acquired), right foot M20.41 ; Other hammer toe(s) (acquired), left foot M20.42 ; Plantar wart B07.0 and Left foot pain M79.[address] [address] 10/10/2024 Casper Fredo Pain in right toe(s) M79.674 ; Pain in left toe(s) M79.675 ; Onychomycosis B35.1 ; Plantar wart B07.0 ; Left foot pain M79.672 and Xerosis of skin L85.[address] [address] 01/16/2025 Casper Fredo Pain in right toe(s) M79.674 ; Pain in left toe(s) M79.675 ; Onychomycosis B35.1 ; Plantar wart B07.0 ; Left foot pain M79.672 and Xerosis of skin L85.3 [facility] [address] [place] [address] 05/14/2024 Casper Yoo Assessments Encounter Date Diagnosis (ICD Code) Assessment Notes Treatment Notes Treatment Clinical Notes Section Notes 07/11/2024 Pain in right toe(s) (ICD-10 - M79.674) 10/10/2024 Pain in right toe(s) (ICD-10 - M79.674) 01/16/2025 Pain in right toe(s) (ICD-10 - M79.674) 01/16/2025 Pain in left toe(s) (ICD-10 - M79.675) 01/16/2025 Onychomycosis (ICD-10 - B35.1) 07/11/2024 Onychomycosis (ICD-10 - B35.1) 10/10/2024 Pain in left toe(s) (ICD-10 - M79.675) 10/10/2024 Onychomycosis (ICD-10 - B35.1) 07/11/2024 Pain in left toe(s) (ICD-10 - M79.675) 07/11/2024 Other hammer toe(s) (acquired), right foot (ICD-10 - M20.41) 01/16/2025 Plantar wart (ICD-10 - B07.0) 10/10/2024 Plantar wart (ICD-10 - B07.0) 10/10/2024 Left foot pain (ICD-10 - M79.672) 01/16/2025 Left foot pain (ICD-10 - M79.672) 07/11/2024 Other hammer toe(s) (acquired), left foot (ICD-10 - M20.42) 07/11/2024 Plantar wart (ICD-10 - B07.0) 01/16/2025 Xerosis of skin (ICD-10 - L85.3) 10/10/2024 Xerosis of skin (ICD-10 - L85.3) 07/11/2024 Left foot pain (ICD-10 - M79.672) Plan Of Treatment Pending Test Test Name Order Date [id number] NAIL, 6 OR MORE 02/15/2024 69668-DZFYCMR NAIL, 6 OR MORE 07/11/2024 90229-TWMYHTM NAIL, 6 OR MORE 10/10/2024 21461-XJWMMAG NAIL, 6 OR MORE 01/16/2025 34036-Ezdd Destruction, 1-14 01/16/2025 94807-Wwnn Destruction, 1-14 10/10/2024 27215-Akij Destruction, 1-14 07/11/2024 82275-Ztikyqlc Plate 02/15/2024 Next Appt Details Provider Name:Casper Yoo , 05/12/2025 03:30:00 PM, [address] [place], [address], Insurance Providers Payer Name Payer Address Payer Phone Subscriber Number Group Number Insured Name Patient Relationship to Insured Coverage Start Date Coverage End Date [facility] [employer] Claims [address] [place] [id number] Sue Weir Self - patient is the insured Medical (General) History Medical History History ICD Code Anxiety Back,Hip,and Knee pain CAD (Cholesterol) Depression High Blood Pressure Joint implants/screws Surgical History Surgery Date(Month/Year)
== END 2025-03-26 10:58 | disposition home or self-care (01) ==
LOC: HO.MAMMO 10:57
PROVIDERS: PCP Internal Medicine; Visit Provider Internal Medicine
DX: Z12.31 Encounter for screening mammogram for malignant neoplasm of breast (principal)
CPT/HCPCS: 77063; 77067

== ENCOUNTER → 2025-03-26 11:30 | Outpatient (BNV) | payer OTHER, SELFPAY | PROVIDERS: PCP Internal Medicine; Visit Provider Internal Medicine | DX: Z12.31 Encounter for screening mammogram for malignant neoplasm of breast (principal) | CPT/HCPCS: 77063; 77067 ==